=== PATIENT | male | born 1970 | race American Indian/Alaskan Native ===

== ENCOUNTER 2017-10-23 22:24 | Emergency (ER) | payer MEDICARE, MEDICAID ==
[2017-10-23 23:00] VITALS: BP 134/99
[2017-10-24] MEDS ORDERED: DIFLUCAN PO ONE (05:18)
[2017-10-24] MEDS ORDERED: MAGIC MOUTHWASH PO ONE (05:18)
--- NOTE | 2017-10-24 05:33 | Emergency Department Report ---
ED Rash HPI - HPI Chief Complaint: Skin Rash Stated Complaint: THRUSH Time Seen by Provider: 10/24/17 05:18 Duration: 5 Days Location: Other (throat ) Rash Symptoms: Yes Itching, Yes Blistering, No Facial Swelling, No Tongue/Oral Swelling, No Breathing Difficulties, No Choking Sensation, No Wheezing/Dyspnea, No Fever, No Lightheaded, No Malaise, No Myalgias Severity: moderate ED Review of Systems ROS: Stated complaint: THRUSH Other details as noted in HPI Constitutional: denies: chills, fever Eyes: denies: eye pain, eye discharge, vision change ENT: denies: ear pain, throat pain Respiratory: denies: cough, shortness of breath, wheezing Cardiovascular: denies: chest pain, palpitations Endocrine: no symptoms reported Gastrointestinal: denies: abdominal pain, nausea, diarrhea Genitourinary: denies: urgency, dysuria Musculoskeletal: denies: back pain, joint swelling, arthralgia Skin: denies: rash, lesions Neurological: as per HPI Psychiatric: denies: anxiety, depression Hematological/Lymphatic: denies: easy bleeding, easy bruising ED Past Medical Hx - Past Medical History Hx Seizures: Yes Additional medical history: Epilepsy - Social History Smoking Status: Current Every Day Smoker Substance Use Type: None, Marijuana - Medications Home Medications: Home Medications Medication Instructions Recorded Confirmed Last Taken Type Nystas/Diphen/Xyl Visc/Mylanta 15 ml MM Q4H 10 Days #450 ml 10/24/17 Unknown Rx [Magic Mouthwash] Rash Exam - Exam General: Vital signs noted. No distress. Alert and acting appropriately. HEENT: No Periorbital Edema, No Conjuctival Injection, No Chemosis, No Perioral Edema, No Tongue Edema, No Uvular Edema, No Compromised Airway, No Drooling Lungs: No Good Air Exchange, No Wheezes, No Ronchi, No Stridor, No Cough, No Labored Respirations, No Retractions, No Use of Accessory Muscles, No Other Abnormal Lung Sounds Heart: Yes Regular, No Murmur Skin: Yes Urticarial Rash, Yes Excoriations, Yes Tenderness, Yes Erythema, No Maculopapular Rash, No Morbilliform rash, No Bulla(e), No Weeping, No Edema, No Encrustations, No Other Other: Positive: Abdomen Normal, Neurologic Normal, Musculoskeletal Normal ED Course Vital Signs 10/23/17 22:37 Temperature 98.3 F Pulse Rate 71 Respiratory 16 Rate Blood Pressure 134/99 O2 Sat by Pulse 98 Oximetry ED Medical Decision Making - Medical Decision Making This RASH plan DC home with Magic mouthwash patient given Diflucan in ED patient will [facility] Critical care attestation.: If time is entered above; I have spent that time in minutes in the direct care of this critically ill patient, excluding procedure time. ED Disposition Clinical Impression: Oral thrush Disposition: DC-01 TO HOME OR SELFCARE Is pt being admited?: No Does the pt Need Aspirin: No Condition: Good Instructions: Oral Candidiasis (ED) Prescriptions: Nystas/Diphen/Xyl Visc/Mylanta [Magic Mouthwash] 15 ml MM Q4H 10 Days #450 ml Referrals: PRIMARY CARE, [Primary Care Provider] - 3-5 Days Forms: Work/School Release Form(ED) Time of Disposition: 05:50
[2017-10-24] MEDS ORDERED: BACTROBAN 2% TP ONE (06:01)
[2017-10-24] MEDS ORDERED: CEPACOL X STRENGTH MM PRN (06:01)
--- NOTE | 2017-10-24 06:03 | Emergency Department Report ---
ED Rash HPI - HPI Chief Complaint: Skin Rash Stated Complaint: THRUSH Time Seen by Provider: 10/24/17 05:18 Rash Symptoms: Yes Itching, No Facial Swelling, No Tongue/Oral Swelling, No Breathing Difficulties, No Choking Sensation, No Wheezing/Dyspnea, No Peeling, No Blistering, No Fever, No Lightheaded, No Malaise, No Myalgias Severity: moderate ED Review of Systems ROS: Stated complaint: THRUSH Other details as noted in HPI Constitutional: denies: chills, fever Eyes: denies: eye pain, eye discharge, vision change ENT: denies: ear pain, throat pain Respiratory: denies: cough, shortness of breath, wheezing Cardiovascular: denies: chest pain, palpitations Endocrine: no symptoms reported Gastrointestinal: denies: abdominal pain, nausea, diarrhea Genitourinary: denies: urgency, dysuria Musculoskeletal: denies: back pain, joint swelling, arthralgia Skin: denies: rash, lesions Neurological: as per HPI Psychiatric: denies: anxiety, depression Hematological/Lymphatic: denies: easy bleeding, easy bruising ED Past Medical Hx - Past Medical History Hx Seizures: Yes Additional medical history: Epilepsy - Social History Smoking Status: Current Every Day Smoker Substance Use Type: None, Marijuana - Medications Home Medications: Home Medications Medication Instructions Recorded Confirmed Last Taken Type Nystas/Diphen/Xyl Visc/Mylanta 15 ml MM Q4H 10 Days #450 ml 10/24/17 Unknown Rx [Magic Mouthwash] Rash Exam - Exam General: Vital signs noted. No distress. Alert and acting appropriately. ED Course Vital Signs 10/23/17 22:37 Temperature 98.3 F Pulse Rate 71 Respiratory 16 Rate Blood Pressure 134/99 O2 Sat by Pulse 98 Oximetry Critical care attestation.: If time is entered above; I have spent that time in minutes in the direct care of this critically ill patient, excluding procedure time. ED Disposition Clinical Impression: Oral thrush, Candidiasis of esophagus Disposition: -01 TO HOME OR SELFCARE Is pt being admited?: No Does the pt Need Aspirin: No Condition: Good Instructions: Oral Candidiasis (ED) Prescriptions: Nystas/Diphen/Xyl Visc/Mylanta [Magic Mouthwash] 15 ml MM Q4H 10 Days #450 ml Referrals: PRIMARY CARE, [Primary Care Provider] - 3-5 Days Forms: Work/School Release Form(ED) Time of Disposition: 06:05
== END 2017-10-24 06:45 | disposition home or self-care (01) ==
LOC: ED 22:24
DX: B37.0 Candidal stomatitis (principal); G40.909 Epilepsy, unspecified, not intractable, without status epilepticus; F17.200 Nicotine dependence, unspecified, uncomplicated; F12.10 Cannabis abuse, uncomplicated
CPT/HCPCS: 99282

== ENCOUNTER 2018-05-20 10:18 | Inpatient (IN) | payer MEDICARE ==
--- NOTE | 2018-05-20 11:22 | Emergency Department Report ---
ED General Adult HPI - General Chief complaint: Dyspnea/Respdistress Stated complaint: SOB/HIV Time Seen by Provider: 05/20/18 10:51 Source: patient, EMS Mode of arrival: Ambulatory Limitations: No Limitations - History of Present Illness Initial comments: Patient presents to emergency department with a chief complaint of cough, congestion and difficulty swallowing. The patient also has complained of significant weight loss. Patient states he was diagnosed with HIV 2 years ago has not been on any medications. Patient is concerned because he said was snipped him on a weight loss and notices white stuff in his mouth. Patient is chest pain, abdominal pain, headache. -: Gradual Severity scale (0 -10): 0 Improves with: none Worsens with: none Associated Symptoms: denies other symptoms Treatments Prior to Arrival: none - Related Data Home Medications Medication Instructions Recorded Confirmed Last Taken levETIRAcetam [Keppra] 500 mg PO BID 02/20/18 05/20/18 05/19/18 Allergies Allergy/AdvReac Type Severity Reaction Status Date / Time No Known Allergies Allergy Verified 10/24/17 05:20 ED Review of Systems ROS: Stated complaint: SOB/HIV Other details as noted in HPI Constitutional: denies: chills, fever Eyes: denies: eye pain, eye discharge, vision change ENT: denies: ear pain, throat pain Respiratory: cough. denies: shortness of breath, wheezing Cardiovascular: denies: chest pain, palpitations Endocrine: no symptoms reported Gastrointestinal: denies: abdominal pain, nausea, diarrhea Genitourinary: denies: urgency, dysuria Musculoskeletal: denies: back pain, joint swelling, arthralgia Skin: denies: rash, lesions Neurological: denies: headache, weakness, paresthesias Psychiatric: denies: anxiety, depression Hematological/Lymphatic: denies: easy bleeding, easy bruising ED Past Medical Hx - Past Medical History Previous Medical History?: Yes Hx Seizures: Yes Hx Psychiatric Treatment: Yes (bipolar) Hx HIV: Yes ("unsure") Additional medical history: Epilepsy - Surgical History Past Surgical History?: Yes Additional Surgical History: Right hand surgery - Social History Smoking Status: Never Smoker Substance Use Type: None - Medications Home Medications: Home Medications Medication Instructions Recorded Confirmed Last Taken Type levETIRAcetam [Keppra] 500 mg PO BID 02/20/18 05/20/18 05/19/18 History ED Physical Exam - General Limitations: No Limitations General appearance: alert, in no apparent distress, cachectic - Head Head exam: Present: atraumatic, normocephalic - Eye Eye exam: Present: normal appearance - ENT ENT exam: Present: other (oral thrush) - Neck Neck exam: Present: normal inspection - Respiratory Respiratory exam: Present: normal lung sounds bilaterally. Absent: respiratory distress, wheezes, rales, rhonchi - Cardiovascular Cardiovascular Exam: Present: regular rate, normal rhythm. Absent: systolic murmur, diastolic murmur, rubs, gallop - GI/Abdominal GI/Abdominal exam: Present: soft, normal bowel sounds. Absent: distended, tenderness - Rectal Rectal exam: Present: deferred - Extremities Exam Extremities exam: Present: normal inspection - Back Exam Back exam: Present: normal inspection - Neurological Exam Neurological exam: Present: alert, oriented X3, CN II-XII intact. Absent: motor sensory deficit - Psychiatric Psychiatric exam: Present: normal affect, normal mood - Skin Skin exam: Present: warm, dry, intact, normal color. Absent: rash ED Course Vital Signs 05/20/18 05/20/18 05/20/18 10:40 10:52 14:31 Temperature 98.3 F 99.2 F Pulse Rate 96 H 92 H Respiratory 18 16 16 Rate Blood Pressure 100/74 Blood Pressure 101/68 [Left] O2 Sat by Pulse 93 97 Oximetry ED Medical Decision Making - Lab Data Result diagrams: 05/20/18 11:54 05/20/18 11:54 Lab Results 05/20/18 05/20/18 05/20/18 Range/Units 11:54 11:54 13:18 WBC 2.3 L (4.5-11.0) K/mm3 RBC 4.49 (3.65-5.03) M/mm3 Hgb 12.4 (11.8-15.2) gm/dl Hct 37.0 (35.5-45.6) % MCV 83 L (84-94) fl MCH 28 (28-32) pg MCHC 33 (32-34) % RDW 16.6 H (13.2-15.2) % Plt Count 249 (140-440) K/mm3 [place] % (Auto) Time Stamp Assembler Eos % (Auto) Time Stamp Assembler Add Manual Diff Complete Total Counted 100 Seg Neutrophils % Time Stamp Assembler Seg Neuts % (Manual) 59.0 (40.0-70.0) % Band Neutrophils % 13.0 % Lymphocytes % (Manual) 8.0 L (13.4-35.0) % Reactive Lymphs % (Man) 0 % Monocytes % (Manual) 16.0 H (0.0-7.3) % Eosinophils % (Manual) 1.0 (0.0-4.3) % Basophils % (Manual) 0 (0.0-1.8) % Metamyelocytes % 2.0 % Myelocytes % 1.0 % Promyelocytes % 0 % Blast Cells % 0 % Nucleated RBC % Not Reportable Seg Neutrophils # Time Stamp Assembler Seg Neutrophils # Man 1.4 L (1.8-7.7) K/mm3 Band Neutrophils # 0.3 K/mm3 Lymphocytes # (Manual) 0.2 L (1.2-5.4) K/mm3 Abs React Lymphs (Man) 0.0 K/mm3 Monocytes # (Manual) 0.4 (0.0-0.8) K/mm3 Eosinophils # (Manual) 0.0 (0.0-0.4) K/mm3 Basophils # (Manual) 0.0 (0.0-0.1) K/mm3 Metamyelocytes # 0.0 K/mm3 Myelocytes # 0.0 K/mm3 Promyelocytes # 0.0 K/mm3 Blast Cells # 0.0 K/mm3 WBC Morphology Not Reportable Hypersegmented Neuts Not Reportable Hyposegmented Neuts Not Reportable Hypogranular Neuts Not Reportable Smudge Cells Not Reportable Toxic Granulation Not Reportable Toxic Vacuolation Not Reportable Dohle Bodies Not Reportable Pelger-Huet Anomaly Not Reportable Arabella Rods Not Reportable Platelet Estimate Consistent w auto Clumped Platelets Not Reportable Plt Clumps, EDTA Not Reportable Large Platelets Not Reportable Giant Platelets Not Reportable Platelet Satelliting Not Reportable Plt Morphology Comment Not Reportable RBC Morphology Normal Dimorphic RBCs Not Reportable Polychromasia Not Reportable Hypochromasia Not Reportable Poikilocytosis Not Reportable Anisocytosis Not Reportable Microcytosis Not Reportable Macrocytosis Not Reportable Spherocytes Not Reportable Pappenheimer Bodies Not Reportable Sickle Cells Not Reportable Target Cells Not Reportable Tear Drop Cells Not Reportable Ovalocytes Not Reportable Helmet Cells Not Reportable [place]enevers Bodies Not Reportable [place] Rings Not Reportable Obed Cells Not Reportable Bite Cells Not Reportable Crenated Cell Not Reportable Elliptocytes Not Reportable Acanthocytes (Spur) Not Reportable Rouleaux Not Reportable Hemoglobin C Crystals Not Reportable Schistocytes Not Reportable Malaria parasites Not Reportable Yuriy Bodies Not Reportable Hem Pathologist Commnt No APTT (24.2-36.6) Sec. Sodium 133 L (137-145) mmol/L Potassium 4.9 (3.6-5.0) mmol/L Chloride 96.2 L (98-107) mmol/L Carbon Dioxide 23 (22-30) mmol/L Anion Gap 19 mmol/L BUN 14 (9-20) mg/dL Creatinine 0.7 L (0.8-1.5) mg/dL Estimated GFR > 60 ml/min BUN/Creatinine Ratio 20 % Glucose 88 (75-100) mg/dL Lactic Acid 1.60 (0.7-2.0) mmol/L Calcium 9.2 (8.4-10.2) mg/dL Magnesium 2.40 H (1.7-2.3) mg/dL Total Bilirubin 0.40 (0.1-1.2) mg/dL AST 48 H (5-40) units/L ALT 47 (7-56) units/L Alkaline Phosphatase 231 H (35-129) units/L Total Protein 7.7 (6.3-8.2) g/dL Albumin 3.2 L (3.9-5) g/dL Albumin/Globulin Ratio 0.7 % Urine Color (Yellow) Urine Turbidity (Clear) Urine pH (5.0-7.0) Ur Specific [place] (1.003-1.030) Urine Protein (Negative) mg/dL Urine Glucose (UA) (Negative) mg/dL Urine Ketones (Negative) mg/dL Urine Blood (Negative) Urine Nitrite (Negative) Urine Bilirubin (Negative) Urine Urobilinogen (<2.0) mg/dL Ur Leukocyte Esterase (Negative) Urine WBC (Auto) (0.0-6.0) /HPF Urine RBC (Auto) (0.0-6.0) /HPF Urine Mucus /HPF 05/20/18 05/20/18 Range/Units 13:18 Unknown WBC (4.5-11.0) K/mm3 RBC (3.65-5.03) M/mm3 Hgb (11.8-15.2) gm/dl Hct (35.5-45.6) % MCV (84-94) fl MCH (28-32) pg MCHC (32-34) % RDW (13.2-15.2) % Plt Count (140-440) K/mm3 [place] % (Auto) Eos % (Auto) Add Manual Diff Total Counted Seg Neutrophils % Seg Neuts % (Manual) (40.0-70.0) % Band Neutrophils % % Lymphocytes % (Manual) (13.4-35.0) % Reactive Lymphs % (Man) % Monocytes % (Manual) (0.0-7.3) % Eosinophils % (Manual) (0.0-4.3) % Basophils % (Manual) (0.0-1.8) % Metamyelocytes % % Myelocytes % % Promyelocytes % % Blast Cells % % Nucleated RBC % Seg Neutrophils # Seg Neutrophils # Man (1.8-7.7) K/mm3 Band Neutrophils # K/mm3 Lymphocytes # (Manual) (1.2-5.4) K/mm3 Abs React Lymphs (Man) K/mm3 Monocytes # (Manual) (0.0-0.8) K/mm3 Eosinophils # (Manual) (0.0-0.4) K/mm3 Basophils # (Manual) (0.0-0.1) K/mm3 Metamyelocytes # K/mm3 Myelocytes # K/mm3 Promyelocytes # K/mm3 Blast Cells # K/mm3 WBC Morphology Hypersegmented Neuts Hyposegmented Neuts Hypogranular Neuts Smudge Cells Toxic Granulation Toxic Vacuolation Dohle Bodies Pelger-Huet Anomaly Arabella Rods Platelet Estimate Clumped Platelets Plt Clumps, EDTA Large Platelets Giant Platelets Platelet Satelliting Plt Morphology Comment RBC Morphology Dimorphic RBCs Polychromasia Hypochromasia Poikilocytosis Anisocytosis Microcytosis Macrocytosis Spherocytes Pappenheimer Bodies Sickle Cells Target Cells Tear Drop Cells Ovalocytes Helmet Cells Mendiola-Greenevers Bodies [place]id[place] Rings Obed Cells Bite Cells Crenated Cell Elliptocytes Acanthocytes (Spur) Rouleaux Hemoglobin C Crystals Schistocytes Malaria parasites Yuriy Bodies Hem Pathologist Commnt APTT 29.4 (24.2-36.6) Sec. Sodium (137-145) mmol/L Potassium (3.6-5.0) mmol/L Chloride (98-107) mmol/L Carbon Dioxide (22-30) mmol/L Anion Gap mmol/L BUN (9-20) mg/dL Creatinine (0.8-1.5) mg/dL Estimated GFR ml/min BUN/Creatinine Ratio % Glucose (75-100) mg/dL Lactic Acid (0.7-2.0) mmol/L Calcium (8.4-10.2) mg/dL Magnesium (1.7-2.3) mg/dL Total Bilirubin (0.1-1.2) mg/dL AST (5-40) units/L ALT (7-56) units/L Alkaline Phosphatase (35-129) units/L Total Protein (6.3-8.2) g/dL Albumin (3.9-5) g/dL Albumin/Globulin Ratio % Urine Color Yellow (Yellow) Urine Turbidity Clear (Clear) Urine pH 6.0 (5.0-7.0) Ur Specific [place] 1.027 (1.003-1.030) Urine Protein 30 mg/dl (Negative) mg/dL Urine Glucose (UA) Neg (Negative) mg/dL Urine Ketones Neg (Negative) mg/dL Urine Blood Neg (Negative) Urine Nitrite Neg (Negative) Urine Bilirubin Neg (Negative) Urine Urobilinogen < 2.0 (<2.0) mg/dL Ur Leukocyte Esterase Neg (Negative) Urine WBC (Auto) 1.0 (0.0-6.0) /HPF Urine RBC (Auto) 3.0 (0.0-6.0) /HPF Urine Mucus Few /HPF - Radiology Data Radiology results: report reviewed Critical care attestation.: If time is entered above; I have spent that time in minutes in the direct care of this critically ill patient, excluding procedure time. ED Disposition Clinical Impression: Oral thrush, Pneumonia Disposition: OP ADMIT IP TO THIS HOSP Is pt being admited?: Yes Does the pt Need Aspirin: No Condition: Fair Instructions: Bacterial Pneumonia (ED) Referrals: PRIMARY CARE, [Primary Care Provider] - 3-5 Days
--- NOTE | 2018-05-20 12:04 | XRay Report ---
ROUTINE CHEST, TWO VIEWS: HISTORY: Cough. Subtle peribronchial opacity is identified throughout the left lung concerning for an early left lung infiltrate. This is new since 02/20/18. No pleural effusion or pneumothorax. Heart and mediastinal structures are unremarkable. IMPRESSION: Early left lung pneumonia.
[2018-05-20 12:47] LABS: Hemoglobin 12.4 gm/dl (11.8-15.2); Mean Corpuscular HGB Conc 33 % (32-34); Mean Corpuscular Volume 83 fl (84-94); Platelet Count 249 K/mm3 (140-440); Red Blood Count 4.49 M/mm3 (3.65-5.03); Red Cell Distribution Width 16.6 % (13.2-15.2)
[2018-05-20 12:53] LABS: Bilirubin,Urine NEG (Negative); Blood,Urine NEG (Negative); Color,Urine Yellow (Yellow); Mucus,Urine FEW /HPF; Urobilinogen,Urine < 2.0 mg/dL (<2.0)
[2018-05-20 13:00] LABS: Alanine Aminotransferase 47 units/L (7-56); Albumin 3.2 g/dL (3.9-5); BUN/Creatinine Ratio 20; Blood Urea Nitrogen 14 mg/dL (9-20); Calcium 9.2 mg/dL (8.4-10.2); Hemolysis Index 26
[2018-05-20] MEDS ORDERED: NACL 0.9% 1000 ML IV ONE (13:11)
[2018-05-20] MEDS: ROCEPHIN/NS 2 GM/100 ML 2 GM/100 ML BAG IV SCH (13:56)
[2018-05-20 14:26] LABS: Band Neutrophils # (Manual) 0.3 K/mm3; Basophils % (Manual) 0 % (0.0-1.8); Platelet Estimate Consistent w Auto; RBC Morphology Normal; Total Cells Counted 100
[2018-05-20] MEDS: ZITHROMAX 500 MG in NACL 0.9% 250ML 250 ML IV SCH (14:31)
--- NOTE | 2018-05-20 18:29 | History and Physical Report ---
History of Present Illness Date of examination: 05/20/18 Medications and Allergies Allergies Allergy/AdvReac Type Severity Reaction Status Date / Time No Known Allergies Allergy Verified 10/24/17 05:20 Home Medications Medication Instructions Recorded Confirmed Last Taken Type levETIRAcetam [Keppra] 500 mg PO BID 02/20/18 05/20/18 05/19/18 History Active Meds: Active Medications Azithromycin 500 mg/ Sodium (Chloride) 250 mls @ 250 mls/hr IV Q24HR BEATRICE; Protocol Last Admin: 05/20/18 14:31 Dose: 250 mls/hr Documented by: Ceftriaxone Sodium (Rocephin/Ns 2 Gm/100 Ml) 2 gm in 100 mls @ 200 mls/hr IV Q24HR BEATRICE; Protocol Last Admin: 05/20/18 13:56 Dose: 200 mls/hr Documented by: Exam - Constitutional Vitals: Temp Pulse Resp BP Pulse Ox 99.1 F 99 H 15 102/70 97 05/20/18 17:52 05/20/18 17:52 05/20/18 17:52 05/20/18 17:52 05/20/18 17:52 Results - Labs CBC & Chem 7: 05/20/18 11:54 05/20/18 11:54 Labs: Laboratory Last Values WBC 2.3 K/mm3 (4.5-11.0) L 05/20/18 11:54 RBC 4.49 M/mm3 (3.65-5.03) 05/20/18 11:54 Hgb 12.4 gm/dl (11.8-15.2) 05/20/18 11:54 Hct 37.0 % (35.5-45.6) 05/20/18 11:54 MCV 83 fl (84-94) L 05/20/18 11:54 MCH 28 pg (28-32) 05/20/18 11:54 MCHC 33 % (32-34) 05/20/18 11:54 RDW 16.6 % (13.2-15.2) H 05/20/18 11:54 Plt Count 249 K/mm3 (140-440) 05/20/18 11:54 [place] % (Auto) Casino Cage Supervisor 05/20/18 11:54 Eos % (Auto) Casino Cage Supervisor 05/20/18 11:54 Add Manual Diff Complete 05/20/18 11:54 Total Counted 100 05/20/18 11:54 Seg Neutrophils % Casino Cage Supervisor 05/20/18 11:54 Seg Neuts % (Manual) 59.0 % (40.0-70.0) 05/20/18 11:54 Band Neutrophils % 13.0 % 05/20/18 11:54 Lymphocytes % (Manual) 8.0 % (13.4-35.0) L 05/20/18 11:54 Reactive Lymphs % (Man) 0 % 05/20/18 11:54 Monocytes % (Manual) 16.0 % (0.0-7.3) H 05/20/18 11:54 Eosinophils % (Manual) 1.0 % (0.0-4.3) 05/20/18 11:54 Basophils % (Manual) 0 % (0.0-1.8) 05/20/18 11:54 Metamyelocytes % 2.0 % 05/20/18 11:54 Myelocytes % 1.0 % 05/20/18 11:54 Promyelocytes % 0 % 05/20/18 11:54 Blast Cells % 0 % 05/20/18 11:54 Nucleated RBC % Not Reportable 05/20/18 11:54 Seg Neutrophils # Casino Cage Supervisor 05/20/18 11:54 Seg Neutrophils # Man 1.4 K/mm3 (1.8-7.7) L 05/20/18 11:54 Band Neutrophils # 0.3 K/mm3 05/20/18 11:54 Lymphocytes # (Manual) 0.2 K/mm3 (1.2-5.4) L 05/20/18 11:54 Abs React Lymphs (Man) 0.0 K/mm3 05/20/18 11:54 Monocytes # (Manual) 0.4 K/mm3 (0.0-0.8) 05/20/18 11:54 Eosinophils # (Manual) 0.0 K/mm3 (0.0-0.4) 05/20/18 11:54 Basophils # (Manual) 0.0 K/mm3 (0.0-0.1) 05/20/18 11:54 Metamyelocytes # 0.0 K/mm3 05/20/18 11:54 Myelocytes # 0.0 K/mm3 05/20/18 11:54 Promyelocytes # 0.0 K/mm3 05/20/18 11:54 Blast Cells # 0.0 K/mm3 05/20/18 11:54 WBC Morphology Not Reportable 05/20/18 11:54 Hypersegmented Neuts Not Reportable 05/20/18 11:54 Hyposegmented Neuts Not Reportable 05/20/18 11:54 Hypogranular Neuts Not Reportable 05/20/18 11:54 Smudge Cells Not Reportable 05/20/18 11:54 Toxic Granulation Not Reportable 05/20/18 11:54 Toxic Vacuolation Not Reportable 05/20/18 11:54 Dohle Bodies Not Reportable 05/20/18 11:54 Pelger-Huet Anomaly Not Reportable 05/20/18 11:54 Arabella Rods Not Reportable 05/20/18 11:54 Platelet Estimate Consistent w auto 05/20/18 11:54 Clumped Platelets Not Reportable 05/20/18 11:54 Plt Clumps, EDTA Not Reportable 05/20/18 11:54 Large Platelets Not Reportable 05/20/18 11:54 Giant Platelets Not Reportable 05/20/18 11:54 Platelet Satelliting Not Reportable 05/20/18 11:54 Plt Morphology Comment Not Reportable 05/20/18 11:54 RBC Morphology Normal 05/20/18 11:54 Dimorphic RBCs Not Reportable 05/20/18 11:54 Polychromasia Not Reportable 05/20/18 11:54 Hypochromasia Not Reportable 05/20/18 11:54 Poikilocytosis Not Reportable 05/20/18 11:54 Anisocytosis Not Reportable 05/20/18 11:54 Microcytosis Not Reportable 05/20/18 11:54 Macrocytosis Not Reportable 05/20/18 11:54 Spherocytes Not Reportable 05/20/18 11:54 Pappenheimer Bodies Not Reportable 05/20/18 11:54 Sickle Cells Not Reportable 05/20/18 11:54 Target Cells Not Reportable 05/20/18 11:54 Tear Drop Cells Not Reportable 05/20/18 11:54 Ovalocytes Not Reportable 05/20/18 11:54 Helmet Cells Not Reportable 05/20/18 11:54 [place] Bodies Not Reportable 05/20/18 11:54 [place] Rings Not Reportable 05/20/18 11:54 [place] Cells Not Reportable 05/20/18 11:54 Bite Cells Not Reportable 05/20/18 11:54 Crenated Cell Not Reportable 05/20/18 11:54 Elliptocytes Not Reportable 05/20/18 11:54 Acanthocytes (Spur) Not Reportable 05/20/18 11:54 Rouleaux Not Reportable 05/20/18 11:54 Hemoglobin C Crystals Not Reportable 05/20/18 11:54 Schistocytes Not Reportable 05/20/18 11:54 Malaria parasites Not Reportable 05/20/18 11:54 Yuriy Bodies Not Reportable 05/20/18 11:54 Hem Pathologist Commnt No 05/20/18 11:54 APTT 29.4 Sec. (24.2-36.6) 05/20/18 13:18 Sodium 133 mmol/L (137-145) L 05/20/18 11:54 Potassium 4.9 mmol/L (3.6-5.0) 05/20/18 11:54 Chloride 96.2 mmol/L (98-107) L 05/20/18 11:54 Carbon Dioxide 23 mmol/L (22-30) 05/20/18 11:54 Anion Gap 19 mmol/L 05/20/18 11:54 BUN 14 mg/dL (9-20) 05/20/18 11:54 Creatinine 0.7 mg/dL (0.8-1.5) L 05/20/18 11:54 Estimated GFR > 60 ml/min 05/20/18 11:54 BUN/Creatinine Ratio 20 % 05/20/18 11:54 Glucose 88 mg/dL (75-100) 05/20/18 11:54 Lactic Acid 1.10 mmol/L (0.7-2.0) 05/20/18 16:00 Calcium 9.2 mg/dL (8.4-10.2) 05/20/18 11:54 Magnesium 2.40 mg/dL (1.7-2.3) H 05/20/18 11:54 Total Bilirubin 0.40 mg/dL (0.1-1.2) 05/20/18 11:54 AST 48 units/L (5-40) H 05/20/18 11:54 ALT 47 units/L (7-56) 05/20/18 11:54 Alkaline Phosphatase 231 units/L (35-129) H 05/20/18 11:54 Lactate Dehydrogenase 549 units/L (91-180) H 05/20/18 11:25 Total Protein 7.7 g/dL (6.3-8.2) 05/20/18 11:54 Albumin 3.2 g/dL (3.9-5) L 05/20/18 11:54 Albumin/Globulin Ratio 0.7 % 05/20/18 11:54 Urine Color Yellow (Yellow) 05/20/18 Unknown Urine Turbidity Clear (Clear) 05/20/18 Unknown Urine pH 6.0 (5.0-7.0) 05/20/18 Unknown Ur Specific [place] 1.027 (1.003-1.030) 05/20/18 Unknown Urine Protein 30 mg/dl mg/dL (Negative) 05/20/18 Unknown Urine Glucose (UA) Neg mg/dL (Negative) 05/20/18 Unknown Urine Ketones Neg mg/dL (Negative) 05/20/18 Unknown Urine Blood Neg (Negative) 05/20/18 Unknown Urine Nitrite Neg (Negative) 05/20/18 Unknown Urine Bilirubin Neg (Negative) 05/20/18 Unknown Urine Urobilinogen < 2.0 mg/dL (<2.0) 05/20/18 Unknown Ur Leukocyte Esterase Neg (Negative) 05/20/18 Unknown Urine WBC (Auto) 1.0 /HPF (0.0-6.0) 05/20/18 Unknown Urine RBC (Auto) 3.0 /HPF (0.0-6.0) 05/20/18 Unknown Urine Mucus Few /HPF 05/20/18 Unknown
[2018-05-20] MEDS ORDERED: TYLENOL PO PRN (18:30)
[2018-05-20] MEDS ORDERED: ZOFRAN IV PRN (18:30)
[2018-05-20] MEDS ORDERED: DILAUDID IV PRN (18:31)
[2018-05-20] MEDS ORDERED: AMBIEN PO PRN (18:31)
[2018-05-20] MEDS ORDERED: PERCOCET 5/325 PO PRN (18:31)
[2018-05-20] MEDS ORDERED: DIFLUCAN 200 ML IV SCH (19:00)
[2018-05-20] MEDS ORDERED: NACL 0.9% 1000 ML 1,000 ML IV SCH (19:00)
[2018-05-20] MEDS ORDERED: ROCEPHIN/NS 2 GM/100 ML 2 GM/100 ML BAG IV SCH (19:00)
[2018-05-20] MEDS: SODIUM CHLORIDE FLUSH SYRINGE 10 ML IV SCH (23:06)
--- NOTE | 2018-05-21 06:21 | Event Note ---
Date: 05/20/18 See dictated H/p in reports Pneumonia--CAP versus PCP HIV Oral candidiasis
[2018-05-21 06:48] LABS: Hematocrit 29.8 % (35.5-45.6); Mean Corpuscular HGB Conc 34 % (32-34); Mean Corpuscular Volume 83 fl (84-94); Platelet Count 272 K/mm3 (140-440); Red Blood Count 3.58 M/mm3 (3.65-5.03); Red Cell Distribution Width 16.5 % (13.2-15.2)
[2018-05-21 06:50] LABS: Alanine Aminotransferase 28 units/L (7-56); Albumin 2.9 g/dL (3.9-5); BUN/Creatinine Ratio 17; Blood Urea Nitrogen 10 mg/dL (9-20); Calcium 8.3 mg/dL (8.4-10.2); Hemolysis Index 2
--- NOTE | 2018-05-21 06:56 | History and Physical Report ---
CHIEF COMPLAINT: Cough, congestion, and difficulty swallowing for 3 to 4 days. HISTORY OF PRESENT ILLNESS: A 48-year-old -[place] male with a history of HIV, comes in for significant weight loss. Also, cough, congestion and difficulty swallowing. The patient was diagnosed with HIV 2 years ago, but not taking any antiretrovirals. Cough, nonproductive. Low-grade fever present. No chest pain. Shortness of breath on minimal exertion present. No exacerbating or relieving factors. Swallowing food is difficult because of white rash on his tongue. PAST MEDICAL HISTORY: As mentioned, HIV, seizure disorder, bipolar disorder. CURRENT MEDICATIONS: Keppra 500 mg twice a day. PAST SURGICAL HISTORY: Right hand surgery. SOCIAL HISTORY: He does not smoke. FAMILY HISTORY: Hypertension. CURRENT MEDICATIONS: Keppra 500 twice a day. REVIEW OF SYSTEMS: Significant for easy fatigability cough and difficulty swallowing. White thrush on his tongue. Also, losing weight. Otherwise, 14-point review of systems negative. PHYSICAL EXAMINATION: GENERAL: On examination, a middle-aged male, cooperative during examination. VITAL SIGNS: Blood pressure is 102/70, temperature is 99.2, pulse is 92, and respirations are 16. HEENT: Unremarkable. Pupils are equal and reactive. Oral thrush present. Severe. NECK: Supple, no lymphadenopathy, no thyromegaly. LUNGS: Clear to auscultation and percussion. Good air entry. CARDIOVASCULAR: S1, S2 heard. No gallop, no murmur, no rub. Apical impulse in left fifth intercostal space and midclavicular line. CHEST: Scattered rhonchi. Good air entry. ABDOMEN: Soft and benign. No hepatosplenomegaly. No guarding, no rigidity. Hernial orifices are normal. EXTREMITIES: Good pedal pulses. No pedal edema. CENTRAL NERVOUS SYSTEM: Alert and oriented x 4, nonfocal exam. SKIN: Normal. IMAGING STUDIES AND LABORATORY DATA: Chest x-ray shows early left lung pneumonia. No diffuse infiltrates. White count is 2300, H and H are 12.4 and 37.0, and platelet count is 249,000. Sodium is 133, potassium is 4.9, chloride is 96.2, bicarbonate is 23, BUN and creatinine are 14 and 0.7, magnesium is 2.4, AST is 48, alkaline phosphatase is 231. Lactate dehydrogenase is 549. Albumin is 3.2. Urine is normal. ASSESSMENT AND PLAN: 1. Left lower lobe pneumonia. We will treat it as community-acquired pneumonia. Suspicion for PCP remains, high lactate dehydrogenase. ID consult was requested to help with the management. The patient is now on ceftriaxone and Zithromax. 2. Oral candidiasis. The patient is started on IV Diflucan 400 mg q.24 hours. 3. HIV. We will defer to ID regarding labs and management of HIV. 4. Malnutrition. Dietitian consult requested. 5. Transaminitis, mild. We will get a hepatitis profile. 6. Hyponatremia, mild. IV fluids for now. 7. Deep venous thrombosis prophylaxis, Lovenox 40 mg subcutaneous daily. JOB# [id number] FERNANDO/STEPH HODGES
[2018-05-21 09:36] LABS: Anisocytosis 1+; Basophils % (Manual) 0 % (0.0-1.8); Dohle Bodies Few; Ovalocytes Few; Poikilocytosis 1+; Total Cells Counted 100
[2018-05-21 09:37] LABS: Platelet Estimate Consistent w Auto
[2018-05-21] MEDS: ROCEPHIN/NS 2 GM/100 ML 2 GM/100 ML BAG IV SCH (10:30)
[2018-05-21] MEDS: LOVENOX SUB-Q SCH ×2 (10:36→10:39)
[2018-05-21] MEDS: SODIUM CHLORIDE FLUSH SYRINGE 10 ML IV SCH (10:36)
[2018-05-21] MEDS: ZITHROMAX 500 MG in NACL 0.9% 250ML 250 ML IV SCH (11:00)
--- NOTE | 2018-05-21 11:13 | Progress Note ---
Assessment and Plan Assessment and plan: Community acquired pneumonia. Continue IV antibiotics and follow serial chest x-ray. HIV. ID consultation pending. Oral candidiasis. Continue Diflucan. History Interval history: No new issues overnight. Hospitalist Physical - Constitutional Vitals: Temp Pulse Resp BP Pulse Ox 98.6 F 84 18 99/67 95 05/21/18 05:54 05/21/18 05:54 05/21/18 05:54 05/21/18 05:54 05/21/18 05:54 General appearance: Present: no acute distress, well-nourished - EENT Eyes: Present: PERRL, EOM intact ENT: hearing intact, clear oral mucosa, dentition normal - Neck Neck: Present: supple, normal ROM - Respiratory Respiratory effort: normal Respiratory: bilateral: CTA - Cardiovascular Rhythm: regular Heart Sounds: Present: S1 & S2. Absent: gallop, rub - Extremities Extremities: no ischemia, No edema, Full ROM - Abdominal General gastrointestinal: soft, non-tender, non-distended, normal bowel sounds - Integumentary Integumentary: Present: clear, warm, dry - Neurologic Neurologic: CNII-XII intact, moves all extremities Results - Labs CBC & Chem 7: 05/21/18 05:32 05/21/18 05:32 Labs: Laboratory Last Values WBC 2.0 K/mm3 (4.5-11.0) L 05/21/18 05:32 RBC 3.58 M/mm3 (3.65-5.03) L 05/21/18 05:32 Hgb 10.0 gm/dl (11.8-15.2) L 05/21/18 05:32 Hct 29.8 % (35.5-45.6) L D 05/21/18 05:32 MCV 83 fl (84-94) L 05/21/18 05:32 MCH 28 pg (28-32) 05/21/18 05:32 MCHC 34 % (32-34) 05/21/18 05:32 RDW 16.5 % (13.2-15.2) H 05/21/18 05:32 Plt Count 272 K/mm3 (140-440) 05/21/18 05:32 [place] % (Auto) Domestic Housekeeper 05/20/18 11:54 Eos % (Auto) Domestic Housekeeper 05/20/18 11:54 Add Manual Diff Complete 05/21/18 05:32 Total Counted 100 05/21/18 05:32 Seg Neutrophils % Domestic Housekeeper 05/20/18 11:54 Seg Neuts % (Manual) 60.0 % (40.0-70.0) 05/21/18 05:32 Band Neutrophils % 1.0 % 05/21/18 05:32 Lymphocytes % (Manual) 17.0 % (13.4-35.0) 05/21/18 05:32 Reactive Lymphs % (Man) 0 % 05/21/18 05:32 Monocytes % (Manual) 14.0 % (0.0-7.3) H 05/21/18 05:32 Eosinophils % (Manual) 8.0 % (0.0-4.3) H 05/21/18 05:32 Basophils % (Manual) 0 % (0.0-1.8) 05/21/18 05:32 Metamyelocytes % 0 % 05/21/18 05:32 Myelocytes % 0 % 05/21/18 05:32 Promyelocytes % 0 % 05/21/18 05:32 Blast Cells % 0 % 05/21/18 05:32 Nucleated RBC % Not Reportable 05/21/18 05:32 Seg Neutrophils # Domestic Housekeeper 05/20/18 11:54 Seg Neutrophils # Man 1.2 K/mm3 (1.8-7.7) L 05/21/18 05:32 Band Neutrophils # 0.0 K/mm3 05/21/18 05:32 Lymphocytes # (Manual) 0.3 K/mm3 (1.2-5.4) L 05/21/18 05:32 Abs React Lymphs (Man) 0.0 K/mm3 05/21/18 05:32 Monocytes # (Manual) 0.3 K/mm3 (0.0-0.8) 05/21/18 05:32 Eosinophils # (Manual) 0.2 K/mm3 (0.0-0.4) 05/21/18 05:32 Basophils # (Manual) 0.0 K/mm3 (0.0-0.1) 05/21/18 05:32 Metamyelocytes # 0.0 K/mm3 05/21/18 05:32 Myelocytes # 0.0 K/mm3 05/21/18 05:32 Promyelocytes # 0.0 K/mm3 05/21/18 05:32 Blast Cells # 0.0 K/mm3 05/21/18 05:32 WBC Morphology Not Reportable 05/21/18 05:32 Hypersegmented Neuts Not Reportable 05/21/18 05:32 Hyposegmented Neuts Not Reportable 05/21/18 05:32 Hypogranular Neuts Not Reportable 05/21/18 05:32 Smudge Cells Not Reportable 05/21/18 05:32 Toxic Granulation Not Reportable 05/21/18 05:32 Toxic Vacuolation Not Reportable 05/21/18 05:32 Dohle Bodies Few 05/21/18 05:32 Pelger-Huet Anomaly Not Reportable 05/21/18 05:32 Arabella Rods Not Reportable 05/21/18 05:32 Platelet Estimate Consistent w auto 05/21/18 05:32 Clumped Platelets Not Reportable 05/21/18 05:32 Plt Clumps, EDTA Not Reportable 05/21/18 05:32 Large Platelets Not Reportable 05/21/18 05:32 Giant Platelets Not Reportable 05/21/18 05:32 Platelet Satelliting Not Reportable 05/21/18 05:32 Plt Morphology Comment Not Reportable 05/21/18 05:32 RBC Morphology Not Reportable 05/21/18 05:32 Dimorphic RBCs Not Reportable 05/21/18 05:32 Polychromasia Not Reportable 05/21/18 05:32 Hypochromasia Not Reportable 05/21/18 05:32 Poikilocytosis 1+ 05/21/18 05:32 Anisocytosis 1+ 05/21/18 05:32 Microcytosis Not Reportable 05/21/18 05:32 Macrocytosis Not Reportable 05/21/18 05:32 Spherocytes Not Reportable 05/21/18 05:32 Pappenheimer Bodies Not Reportable 05/21/18 05:32 Sickle Cells Not Reportable 05/21/18 05:32 Target Cells Not Reportable 05/21/18 05:32 Tear Drop Cells Not Reportable 05/21/18 05:32 Ovalocytes Few 05/21/18 05:32 Helmet Cells Not Reportable 05/21/18 05:32 Mendiola-Krum Bodies Not Reportable 05/21/18 05:32 Hydes Rings Not Reportable 05/21/18 05:32 Obed Cells Not Reportable 05/21/18 05:32 Bite Cells Not Reportable 05/21/18 05:32 Crenated Cell Not Reportable 05/21/18 05:32 Elliptocytes Not Reportable 05/21/18 05:32 Acanthocytes (Spur) Not Reportable 05/21/18 05:32 Rouleaux Not Reportable 05/21/18 05:32 Hemoglobin C Crystals Not Reportable 05/21/18 05:32 Schistocytes Not Reportable 05/21/18 05:32 Malaria parasites Not Reportable 05/21/18 05:32 Yuriy Bodies Not Reportable 05/21/18 05:32 Hem Pathologist Commnt No 05/21/18 05:32 APTT 29.4 Sec. (24.2-36.6) 05/20/18 13:18 Sodium 142 mmol/L (137-145) D 05/21/18 05:32 Potassium 4.2 mmol/L (3.6-5.0) 05/21/18 05:32 Chloride 105.1 mmol/L (98-107) 05/21/18 05:32 Carbon Dioxide 28 mmol/L (22-30) 05/21/18 05:32 Anion Gap 13 mmol/L 05/21/18 05:32 BUN 10 mg/dL (9-20) 05/21/18 05:32 Creatinine 0.6 mg/dL (0.8-1.5) L 05/21/18 05:32 Estimated GFR > 60 ml/min 05/21/18 05:32 BUN/Creatinine Ratio 17 % 05/21/18 05:32 Glucose 88 mg/dL (75-100) 05/21/18 05:32 Hemoglobin A1c 5.8 % (4-6) 05/20/18 18:56 Lactic Acid 1.10 mmol/L (0.7-2.0) 05/20/18 16:00 Calcium 8.3 mg/dL (8.4-10.2) L 05/21/18 05:32 Magnesium 2.40 mg/dL (1.7-2.3) H 05/20/18 11:54 Total Bilirubin 0.20 mg/dL (0.1-1.2) 05/21/18 05:32 AST 28 units/L (5-40) 05/21/18 05:32 ALT 28 units/L (7-56) 05/21/18 05:32 Alkaline Phosphatase 179 units/L (35-129) H 05/21/18 05:32 Lactate Dehydrogenase 549 units/L (91-180) H 05/20/18 11:25 Total Protein 6.0 g/dL (6.3-8.2) L D 05/21/18 05:32 Albumin 2.9 g/dL (3.9-5) L 05/21/18 05:32 Albumin/Globulin Ratio 0.9 % 05/21/18 05:32 Urine Color Yellow (Yellow) 05/20/18 Unknown Urine Turbidity Clear (Clear) 05/20/18 Unknown Urine pH 6.0 (5.0-7.0) 05/20/18 Unknown Ur Specific [place] 1.027 (1.003-1.030) 05/20/18 Unknown Urine Protein 30 mg/dl mg/dL (Negative) 05/20/18 Unknown Urine Glucose (UA) Neg mg/dL (Negative) 05/20/18 Unknown Urine Ketones Neg mg/dL (Negative) 05/20/18 Unknown Urine Blood Neg (Negative) 05/20/18 Unknown Urine Nitrite Neg (Negative) 05/20/18 Unknown Urine Bilirubin Neg (Negative) 05/20/18 Unknown Urine Urobilinogen < 2.0 mg/dL (<2.0) 05/20/18 Unknown Ur Leukocyte Esterase Neg (Negative) 05/20/18 Unknown Urine WBC (Auto) 1.0 /HPF (0.0-6.0) 05/20/18 Unknown Urine RBC (Auto) 3.0 /HPF (0.0-6.0) 05/20/18 Unknown Urine Mucus Few /HPF 05/20/18 Unknown
[2018-05-21 11:29] LABS: Hepatitis B Surface Antigen Non-Reactive (Negative)
[2018-05-21 12:25] LABS: Hepatitis C Virus Antibody Non-Reactive (NonReactive)
--- NOTE | 2018-05-21 13:42 | Consultation ---
History of Present Illness - Reason for Consult Consult date: 05/21/18 HIV ?PJP Requesting physician: CAROL CM - History of Present Illness 48 y/o male with history of cocaine abuse, Gonorrhea and HIV diagnosed in 2018, [facility] but never went back because he did not like the way he was treated; admitted on 05/20/2018 due to 3-week history of cough with yellowish sputum, SOB, AVILA, nasal congestion and difficulty swallowing. Also re ports multiple lips bumps. Reports significant weight loss 30L in 3 months. In the ED, temp 98.3, HR 96, R 18, O2 sat 93%, BP 100/74. WBC 2.3, Hg 12.4, Plat 249. Bands 13%. Creat 0.7. LDH 549. AST 48. UA neg. Viral hepatitis panel neg. Blood culture 05/20/2018 no growth today. CXR showed early left sided infiltrate. Review of Systems: General: no fever, chills, nightsweats, +weight loss, +anorexia, +odynophagia Cutaneous: no rash, pruritus Head: no headaches or injury Eyes: no changes in vision, eye pain, double vision Ears: no ear pain, ear discharge, ringing or hearing loss Nose: no nose bleeding, stuffiness Mouth & throat: no bleeding gums, no horseness, no dental problems, or swollen glands Neck: no pain, node enlargement/lumps, tyroid enlargement or tenderness Respiratory: + cough, +AVILA, +SOB, + sputum, no hemoptysis, pleuritic chest pain Cardiovascular: no chest pain, leg edema, cyanosis, AVILA, orthopnea Musculoskeletal: no decreased joint motion, bone or joint pain, joint swelling, muscle aches Gastrointestinal: no nausea, vomiting, hematemesis, diarrhea, constipation, melena, bright red blood in stools, fecal incontinence, jaundice Genitourinary/Reproductive: no frequent urination, dysuria, hematuria, incontinence Neurogical: no seizures, no headaches, no weakness, no paresthesias, no loss of speech or vision; no memory loss, no vertigo, no tremors, no numbness Psychiatric: stable mood; no excessive anxiety, sadness or moodiness Medications and Allergies Allergies Allergy/AdvReac Type Severity Reaction Status Date / Time No Known Allergies Allergy Verified 10/24/17 05:20 Home Medications Medication Instructions Recorded Confirmed Last Taken Type levETIRAcetam [Keppra] 500 mg PO BID 02/20/18 05/20/18 05/19/18 History Active Meds: Active Medications Acetaminophen (Tylenol) 650 mg PO Q4H PRN PRN Reason: Pain MILD(1-3)/Fever >100.5/SHIELDS Enoxaparin Sodium (Lovenox) 40 mg SUB-Q QDAY [facility] Last Admin: 05/21/18 10:39 Dose: Not Given Documented by: Hydromorphone HCl (Dilaudid) 0.5 mg IV Q3H PRN PRN Reason: Pain , Severe (7-10) Azithromycin 500 mg/ Sodium (Chloride) 250 mls @ 250 mls/hr IV Q24HR [facility]; Protocol Last Admin: 05/21/18 11:00 Dose: 250 mls/hr Documented by: Ceftriaxone Sodium (Rocephin/Ns 2 Gm/100 Ml) 2 gm in 100 mls @ 200 mls/hr IV Q24HR [facility]; Protocol Last Admin: 05/21/18 10:30 Dose: 200 mls/hr Documented by: Fluconazole (Diflucan) 200 mls @ 100 mls/hr IV Q24HR@2200 [facility]; Protocol Ondansetron HCl (Zofran) 4 mg IV Q8H PRN PRN Reason: Nausea And Vomiting Oxycodone/Acetaminophen (Percocet 5/325) 1 tab PO Q6H PRN PRN Reason: Pain, Moderate (4-6) Sodium Chloride (Sodium Chloride Flush Syringe 10 Ml) 10 ml IV BID [facility] Stop: 05/21/18 21:59 Last Admin: 05/21/18 10:36 Dose: Not Given Documented by: Sodium Chloride (Sodium Chloride Flush Syringe 10 Ml) 10 ml IV PRN PRN PRN Reason: LINE FLUSH Zolpidem Tartrate (Ambien) 5 mg PO QHS PRN PRN Reason: Insomnia Physical Examination - Physical Exam Narrative exam: General appearance: Alert in NAD, conversant cachetic Eyes: anicteric sclerae, moist conjunctivae; no lid-lag; PERRLA HENT: Atraumatic; oropharynx +significant thrush; normal hard and soft palate. Normal external ears. Neck: Trachea midline; supple, no thyromegaly or lymphadenopathy Lungs: bilateral scattered crackles CV: RRR, no murmurs Abdomen: Soft, non-tender; no masses or hepatosplenomegaly Extremities: No peripheral edema or extremity lymphadenopathy Skin: Normal temperature, turgor and texture; no rash, ulcers or subcutaneous nodules Psych: Appropriate affect, alert and oriented to person, place and time. Neuro: alert and oriented x 3. Moving all extermities - Constitutional Vitals: Vital Signs Temp Pulse Resp BP Pulse Ox 98.6 F 84 18 99/67 95 05/21/18 05:54 05/21/18 05:54 05/21/18 05:54 05/21/18 05:54 05/21/18 05:54 Temperature -Last 24 Hours Temperature 98.6 F Temperature 98.5 F Temperature 99.5 F Temperature 99.1 F Temperature 99.2 F Results - Labs CBC & Chem 7: 05/21/18 05:32 05/21/18 05:32 Labs: Abnormal lab results 05/20/18 05/20/18 05/21/18 Range/Units 11:25 11:54 05:32 WBC 2.0 L (4.5-11.0) K/mm3 RBC 3.58 L (3.65-5.03) M/mm3 Hgb 10.0 L (11.8-15.2) gm/dl Hct 29.8 L D (35.5-45.6) % MCV 83 L (84-94) fl RDW 16.5 H (13.2-15.2) % Lymphocytes % (Manual) 8.0 L (13.4-35.0) % Monocytes % (Manual) 16.0 H 14.0 H (0.0-7.3) % Eosinophils % (Manual) 8.0 H (0.0-4.3) % Seg Neutrophils # Man 1.4 L 1.2 L (1.8-7.7) K/mm3 Lymphocytes # (Manual) 0.2 L 0.3 L (1.2-5.4) K/mm3 Creatinine (0.8-1.5) mg/dL Calcium (8.4-10.2) mg/dL Alkaline Phosphatase (35-129) units/L Lactate Dehydrogenase 549 H (91-180) units/L Total Protein (6.3-8.2) g/dL Albumin (3.9-5) g/dL 05/21/18 Range/Units 05:32 WBC (4.5-11.0) K/mm3 RBC (3.65-5.03) M/mm3 Hgb (11.8-15.2) gm/dl Hct (35.5-45.6) % MCV (84-94) fl RDW (13.2-15.2) % Lymphocytes % (Manual) (13.4-35.0) % Monocytes % (Manual) (0.0-7.3) % Eosinophils % (Manual) (0.0-4.3) % Seg Neutrophils # Man (1.8-7.7) K/mm3 Lymphocytes # (Manual) (1.2-5.4) K/mm3 Creatinine 0.6 L (0.8-1.5) mg/dL Calcium 8.3 L (8.4-10.2) mg/dL Alkaline Phosphatase 179 H (35-129) units/L Lactate Dehydrogenase (91-180) units/L Total Protein 6.0 L D (6.3-8.2) g/dL Albumin 2.9 L (3.9-5) g/dL Assessment and Plan Cultures: Blood culture 05/20/2018 no growth today. Assessment: 48 y/o male with history of cocaine abuse, Gonorrhea and HIV diagnosed in 2017,; admitted on 05/20/2018 due to 3-week history of cough with yellowish sputum, SOB, AVILA, nasal congestion and difficulty swallowin) Sepsis: Present on admission, manifested by tachycardia, hypotension, neutropenia. Etiology most likely AIDS +/- PJP pneumonia. 2) Presumed PJP pneumonia versus CAP with mild hypoxemia: O2 sat 93%, LDH 549, CXR showed early left sided infiltrate. Blood culture 05/20/2018 no growth today. 3) Severe oral candidiasis 4) Weight loss/AIDS cachexia 5) Neutropenia 6) HIV infection: unknown CD4/VL. Diagnosed in 2018 non treated non compliance, [facility] but never went back because he did not like the way he was treated Recommendations: - follow-up blood cultures - check sputum DFA - check Cryptococcal serum antigen and CMV DNA - check CD4, HIV-viral load and HIV-genotype - check AFB-blood culture - start bactrim IV for PJP treatement - continue ceftriaoxne and azithromycin for now - continue fluconazole IV Will follow. Mirna Pizarro MD Infectious Diseases [facility] M [phone] O [phone]
[2018-05-21] MEDS ORDERED: BACTRIM DS PO SCH (14:00)
[2018-05-21] MEDS: BACTRIM 300 MG in D5W 500 ML IV SCH (15:32)
[2018-05-21] MEDS: DELTASONE PO SCH ×2 (15:42→22:59)
[2018-05-21] MEDS: DIFLUCAN 200 ML IV SCH (23:00)
[2018-05-21] MEDS: KEPPRA PO SCH (23:01)
[2018-05-22] MEDS: BACTRIM 300 MG in D5W 500 ML IV SCH ×4 (01:21→17:35)
--- NOTE | 2018-05-22 10:12 | Progress Note ---
Assessment and Plan Cultures: Blood culture 05/20/2018 no growth today. Assessment: 48 y/o male with history of cocaine abuse, Gonorrhea and HIV diagnosed in 2018,; admitted on 05/20/2018 due to 3-week history of cough with yellowish sputum, SOB, AVILA, nasal congestion and difficulty swallowin) Sepsis: Improved, Present on admission, manifested by tachycardia, hypotension, neutropenia. Etiology most likely AIDS +/- PJP pneumonia. 2) Presumed PJP pneumonia versus CAP with mild hypoxemia: O2 sat 93%, LDH 549, CXR showed early left sided infiltrate. Blood culture 05/20/2018 no growth today. 3) Severe oral candidiasis 4) Weight loss/AIDS cachexia 5) Neutropenia 6) HIV infection: unknown CD4/VL. Diagnosed in 2018 non treated non compliance, [facility] but never went back because he did not like the way he was treated Recommendations: - follow-up blood cultures - follow ip sputum DFA - f/u Cryptococcal serum antigen and CMV DNA - f/u CD4, HIV-viral load and HIV-genotype - f/u AFB-blood culture - continue bactrim IV for PJP treatement - continue ceftriaxone and azithromycin for now - continue fluconazole IV [facility] M: [phone] O:[phone] Subjective Date of service: 05/22/18 Interval history: Patient seen and examined. Agitated , no acute distress observed. Nurses notes, labs, reports reviewed, discussed with patient, verbalized understanding about current treatment plan. Objective - Exam Narrative Exam: Narrative exam: General appearance: Alert in NAD, agitated, cachetic Eyes: anicteric sclerae, moist conjunctivae; no lid-lag; PERRLA HENT: Atraumatic; oropharynx +significant thrush; normal hard and soft palate. Normal external ears. Neck: Trachea midline; supple, no thyromegaly or lymphadenopathy Lungs: bilateral scattered crackles CV: RRR, no murmurs Abdomen: Soft, non-tender; no masses or hepatosplenomegaly Extremities: No peripheral edema or extremity lymphadenopathy Skin: Normal temperature, turgor and texture; no rash, ulcers or subcutaneous nodules Psych: Agitated, alert and oriented to person, place and time. Neuro: alert and oriented x 3. Moving all extermities - Constitutional Vitals: Vital Signs Temp Pulse Resp BP Pulse Ox 98.3 F 77 20 130/95 94 05/22/18 05:25 05/21/18 23:45 05/22/18 05:25 05/22/18 05:25 05/21/18 23:45 Temperature -Last 24 Hours Temperature 98.3 F Temperature 97.8 F Temperature 99.5 F Temperature 98.6 F - Labs CBC & Chem 7: 05/21/18 05:32 05/21/18 05:32
--- NOTE | 2018-05-22 11:04 | Progress Note ---
Assessment and Plan Assessment and plan: Sepsis. Present on admission. Patient meets criteria given the tachycardia, hypotension and neutropenia. Etiology secondary to AIDS, P.J. P pneumonia. Follow up blood and sputum cultures. Continue antibiotics per ID Acute hypoxemic respiratory failure. Etiology secondary to pneumonia. Continue O2 to maintain sats. Presumed P.J. P pneumonia versus Community acquired pneumonia. Continue IV ant ibiotics and follow serial chest x-ray. Follow AFB culture. HIV. ID following. Follow up CD4, HIV viral load and HIV genotype. Severe Oral candidiasis. Continue Diflucan. Neutropenia. AIDS cachexia/severe protein calorie malnutrition. Consult dietitian. History Interval history: No new issues overnight. Hospitalist Physical - Constitutional Vitals: Temp Pulse Resp BP Pulse Ox 98.3 F 77 20 130/95 94 05/22/18 05:25 05/21/18 23:45 05/22/18 05:25 05/22/18 05:25 05/21/18 23:45 General appearance: Present: no acute distress, well-nourished - EENT Eyes: Present: PERRL, EOM intact ENT: hearing intact, clear oral mucosa, dentition normal - Neck Neck: Present: supple, normal ROM - Respiratory Respiratory effort: normal Respiratory: bilateral: diminished, rhonchi - Cardiovascular Rhythm: regular Heart Sounds: Present: S1 & S2. Absent: gallop, rub - Extremities Extremities: no ischemia, No edema, Full ROM - Abdominal General gastrointestinal: soft, non-tender, non-distended, normal bowel sounds - Integumentary Integumentary: Present: clear, warm, dry - Neurologic Neurologic: CNII-XII intact, moves all extremities Results - Labs CBC & Chem 7: 05/21/18 05:32 05/21/18 05:32 Labs: Laboratory Last Values WBC 2.0 K/mm3 (4.5-11.0) L 05/21/18 05:32 RBC 3.58 M/mm3 (3.65-5.03) L 05/21/18 05:32 Hgb 10.0 gm/dl (11.8-15.2) L 05/21/18 05:32 Hct 29.8 % (35.5-45.6) L D 05/21/18 05:32 MCV 83 fl (84-94) L 05/21/18 05:32 MCH 28 pg (28-32) 05/21/18 05:32 MCHC 34 % (32-34) 05/21/18 05:32 RDW 16.5 % (13.2-15.2) H 05/21/18 05:32 Plt Count 272 K/mm3 (140-440) 05/21/18 05:32 [place] % (Auto) Distribution Estimator 05/20/18 11:54 Eos % (Auto) Distribution Estimator 05/20/18 11:54 Add Manual Diff Complete 05/21/18 05:32 Total Counted 100 05/21/18 05:32 Seg Neutrophils % Distribution Estimator 05/20/18 11:54 Seg Neuts % (Manual) 60.0 % (40.0-70.0) 05/21/18 05:32 Band Neutrophils % 1.0 % 05/21/18 05:32 Lymphocytes % (Manual) 17.0 % (13.4-35.0) 05/21/18 05:32 Reactive Lymphs % (Man) 0 % 05/21/18 05:32 Monocytes % (Manual) 14.0 % (0.0-7.3) H 05/21/18 05:32 Eosinophils % (Manual) 8.0 % (0.0-4.3) H 05/21/18 05:32 Basophils % (Manual) 0 % (0.0-1.8) 05/21/18 05:32 Metamyelocytes % 0 % 05/21/18 05:32 Myelocytes % 0 % 05/21/18 05:32 Promyelocytes % 0 % 05/21/18 05:32 Blast Cells % 0 % 05/21/18 05:32 Nucleated RBC % Not Reportable 05/21/18 05:32 Seg Neutrophils # Distribution Estimator 05/20/18 11:54 Seg Neutrophils # Man 1.2 K/mm3 (1.8-7.7) L 05/21/18 05:32 Band Neutrophils # 0.0 K/mm3 05/21/18 05:32 Lymphocytes # (Manual) 0.3 K/mm3 (1.2-5.4) L 05/21/18 05:32 Abs React Lymphs (Man) 0.0 K/mm3 05/21/18 05:32 Monocytes # (Manual) 0.3 K/mm3 (0.0-0.8) 05/21/18 05:32 Eosinophils # (Manual) 0.2 K/mm3 (0.0-0.4) 05/21/18 05:32 Basophils # (Manual) 0.0 K/mm3 (0.0-0.1) 05/21/18 05:32 Metamyelocytes # 0.0 K/mm3 05/21/18 05:32 Myelocytes # 0.0 K/mm3 05/21/18 05:32 Promyelocytes # 0.0 K/mm3 05/21/18 05:32 Blast Cells # 0.0 K/mm3 05/21/18 05:32 WBC Morphology Not Reportable 05/21/18 05:32 Hypersegmented Neuts Not Reportable 05/21/18 05:32 Hyposegmented Neuts Not Reportable 05/21/18 05:32 Hypogranular Neuts Not Reportable 05/21/18 05:32 Smudge Cells Not Reportable 05/21/18 05:32 Toxic Granulation Not Reportable 05/21/18 05:32 Toxic Vacuolation Not Reportable 05/21/18 05:32 Dohle Bodies Few 05/21/18 05:32 Pelger-Huet Anomaly Not Reportable 05/21/18 05:32 Arabella Rods Not Reportable 05/21/18 05:32 Platelet Estimate Consistent w auto 05/21/18 05:32 Clumped Platelets Not Reportable 05/21/18 05:32 Plt Clumps, EDTA Not Reportable 05/21/18 05:32 Large Platelets Not Reportable 05/21/18 05:32 Giant Platelets Not Reportable 05/21/18 05:32 Platelet Satelliting Not Reportable 05/21/18 05:32 Plt Morphology Comment Not Reportable 05/21/18 05:32 RBC Morphology Not Reportable 05/21/18 05:32 Dimorphic RBCs Not Reportable 05/21/18 05:32 Polychromasia Not Reportable 05/21/18 05:32 Hypochromasia Not Reportable 05/21/18 05:32 Poikilocytosis 1+ 05/21/18 05:32 Anisocytosis 1+ 05/21/18 05:32 Microcytosis Not Reportable 05/21/18 05:32 Macrocytosis Not Reportable 05/21/18 05:32 Spherocytes Not Reportable 05/21/18 05:32 Pappenheimer Bodies Not Reportable 05/21/18 05:32 Sickle Cells Not Reportable 05/21/18 05:32 Target Cells Not Reportable 05/21/18 05:32 Tear Drop Cells Not Reportable 05/21/18 05:32 Ovalocytes Few 05/21/18 05:32 Helmet Cells Not Reportable 05/21/18 05:32 [place] Bodies Not Reportable 05/21/18 05:32 [place] Rings Not Reportable 05/21/18 05:32 [place] Cells Not Reportable 05/21/18 05:32 Bite Cells Not Reportable 05/21/18 05:32 Crenated Cell Not Reportable 05/21/18 05:32 Elliptocytes Not Reportable 05/21/18 05:32 Acanthocytes (Spur) Not Reportable 05/21/18 05:32 Rouleaux Not Reportable 05/21/18 05:32 Hemoglobin C Crystals Not Reportable 05/21/18 05:32 Schistocytes Not Reportable 05/21/18 05:32 Malaria parasites Not Reportable 05/21/18 05:32 Yuriy Bodies Not Reportable 05/21/18 05:32 Hem Pathologist Commnt No 05/21/18 05:32 APTT 29.4 Sec. (24.2-36.6) 05/20/18 13:18 Sodium 142 mmol/L (137-145) D 05/21/18 05:32 Potassium 4.2 mmol/L (3.6-5.0) 05/21/18 05:32 Chloride 105.1 mmol/L (98-107) 05/21/18 05:32 Carbon Dioxide 28 mmol/L (22-30) 05/21/18 05:32 Anion Gap 13 mmol/L 05/21/18 05:32 BUN 10 mg/dL (9-20) 05/21/18 05:32 Creatinine 0.6 mg/dL (0.8-1.5) L 05/21/18 05:32 Estimated GFR > 60 ml/min 05/21/18 05:32 BUN/Creatinine Ratio 17 % 05/21/18 05:32 Glucose 88 mg/dL (75-100) 05/21/18 05:32 Hemoglobin A1c 5.8 % (4-6) 05/20/18 18:56 Lactic Acid 1.10 mmol/L (0.7-2.0) 05/20/18 16:00 Calcium 8.3 mg/dL (8.4-10.2) L 05/21/18 05:32 Magnesium 2.40 mg/dL (1.7-2.3) H 05/20/18 11:54 Total Bilirubin 0.20 mg/dL (0.1-1.2) 05/21/18 05:32 AST 28 units/L (5-40) 05/21/18 05:32 ALT 28 units/L (7-56) 05/21/18 05:32 Alkaline Phosphatase 179 units/L (35-129) H 05/21/18 05:32 Lactate Dehydrogenase 549 units/L (91-180) H 05/20/18 11:25 Total Protein 6.0 g/dL (6.3-8.2) L D 05/21/18 05:32 Albumin 2.9 g/dL (3.9-5) L 05/21/18 05:32 Albumin/Globulin Ratio 0.9 % 05/21/18 05:32 Urine Color Yellow (Yellow) 05/20/18 Unknown Urine Turbidity Clear (Clear) 05/20/18 Unknown Urine pH 6.0 (5.0-7.0) 05/20/18 Unknown Ur Specific [place] 1.027 (1.003-1.030) 05/20/18 Unknown Urine Protein 30 mg/dl mg/dL (Negative) 05/20/18 Unknown Urine Glucose (UA) Neg mg/dL (Negative) 05/20/18 Unknown Urine Ketones Neg mg/dL (Negative) 05/20/18 Unknown Urine Blood Neg (Negative) 05/20/18 Unknown Urine Nitrite Neg (Negative) 05/20/18 Unknown Urine Bilirubin Neg (Negative) 05/20/18 Unknown Urine Urobilinogen < 2.0 mg/dL (<2.0) 05/20/18 Unknown Ur Leukocyte Esterase Neg (Negative) 05/20/18 Unknown Urine WBC (Auto) 1.0 /HPF (0.0-6.0) 05/20/18 Unknown Urine RBC (Auto) 3.0 /HPF (0.0-6.0) 05/20/18 Unknown Urine Mucus Few /HPF 05/20/18 Unknown Hepatitis A IgM Ab Non-reactive (NonReactive) 05/21/18 07:16 Hep Bs Antigen Non-reactive (Negative) 05/21/18 07:16 Hep B Core IgM Ab Non-reactive (NonReactive) 05/21/18 07:16 Hepatitis C Antibody Non-reactive (NonReactive) 05/21/18 07:16 Nutrition/Malnutrition Assess - Dietary Evaluation Nutrition/Malnutrition Findings: Nutrition Notes Start: 05/21/18 15:06 Freq: Status: Active Protocol: Document 05/21/18 15:06 RM (Rec: 05/21/18 15:19 RM [id number]) Nutrition Notes Need for Assessment generated from: MD Order Initial or Follow up Assessment Other Pertinent Diagnosis HIV, Pneu, Oral Candidiasis, Seizure disorder, Bipolar disorder Current Diet Regular Labs/Tests Reviewed Pertinent Medications Reviewed Height 5 ft 6 in Weight 62.2 kg Usual Body Weight 70.45 kg [place] Body Weight (kg) 64.54 BMI 22.1 Subjective/Other Information Consulted for ONS recommendation. 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 Stated that [employer]TER GYPSUM pt ate 1 meal daily and is unable to eat the facility's meals d /t them being too hard. Stated UBW was 155 lbs but unsure how long ago he saw that he weighed that. Noted temporal wasting. 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 No Is Patient Ambulatory and/or Out of Bed Yes REE-([facility]-ambulatory/OOB) [ 1871.675 NUTR.MSJOOB] Calculation Used for Recommendations [facility] Additional Notes Protein Needs: (1.2-1.5g/kg) Fluid Needs: 1 ml/kcal Nutrition Intervention Change Diet Order: Add Mech soft w/ground meat modification Add Supplement/Snack (indicate name/kcal Ensure Enlive BID /protein ) Provides kCal: 700 Provides Protein (gm) 40 Goal #1 Meet at least 75% of calorie and protein needs via PO and ONS intakes Goal #2 Wt gain/maintenance Anticipated Discharge Needs: Unable to determine at this time Follow-Up By: 05/23/18 Additional Comments Follow for PO and oNS intakes
[2018-05-22] MEDS: LOVENOX SUB-Q SCH ×2 (11:34→11:39)
[2018-05-22] MEDS: ROCEPHIN/NS 2 GM/100 ML 2 GM/100 ML BAG IV SCH (11:35)
[2018-05-22] MEDS: DELTASONE PO SCH ×2 (11:35→21:46)
[2018-05-22] MEDS: KEPPRA PO SCH ×2 (11:35→21:44)
[2018-05-22] MEDS: ZITHROMAX 500 MG in NACL 0.9% 250ML 250 ML IV SCH (12:19)
[2018-05-22] MEDS: DIFLUCAN 200 ML IV SCH (21:46)
[2018-05-23] MEDS: BACTRIM 300 MG in D5W 500 ML IV SCH ×3 (00:15→12:00)
[2018-05-23] MEDS: DELTASONE PO SCH ×2 (09:58→22:32)
[2018-05-23] MEDS: ROCEPHIN/NS 2 GM/100 ML 2 GM/100 ML BAG IV SCH (09:58)
[2018-05-23] MEDS: KEPPRA PO SCH ×2 (09:58→22:33)
[2018-05-23] MEDS: LOVENOX SUB-Q SCH (10:07)
--- NOTE | 2018-05-23 10:40 | Progress Note ---
Assessment and Plan Cultures: Blood culture 05/20/2018 no growth today. Assessment: 48 y/o male with history of cocaine abuse, Gonorrhea and HIV diagnosed in 2018,; admitted on 05/20/2018 due to 3-week history of cough with yellowish sputum, SOB, AVILA, nasal congestion and difficulty swallowin) Sepsis: Improved, Present on admission, manifested by tachycardia, hypotension, neutropenia. Etiology most likely AIDS +/- PJP pneumonia. 2) Presumed PJP pneumonia versus CAP with mild hypoxemia: O2 sat 93%, LDH 549, CXR showed early left sided infiltrate. Blood culture 05/20/2018 no growth today. 3) Severe oral candidiasis 4) Weight loss/AIDS cachexia 5) Neutropenia 6) HIV infection: unknown CD4/VL. Diagnosed in 2018 non treated non compliance, patient [facility] but never went back because he did not like the way he was treated Recommendations: - follow-up blood cultures - follow ip sputum DFA - f/u Cryptococcal serum antigen and CMV DNA - f/u CD4, HIV-viral load and HIV-genotype - f/u AFB-blood culture - continue bactrim , switch to PO for PJP treatment - continue ceftriaxone and azithromycin for now - continue fluconazole IV -continue prednisone - If clinically better will d/c on bactrim DS 2 tab PO TID x 21 days, fluconazole 400 mg PO qday for 21 days. Ceftriaxone and azithromycin can be stopped and changed to amoxicillin 500 mg po TID for CAP x 5 days. Prednisone taper as follows 40mg po BID for three days, then 40 mg PO QD for five days, then 20mg PO for 11 days. - ID clinic f/u 06/06/18 to review labs and start ART. Radha Leonard NP [facility] M: [id number] O:[phone] Subjective Date of service: 05/23/18 Interval history: Patient seen and examined. Denied pain, SOB. No fevers. Discharge plan discussed, verbalized understanding. Objective - Exam Narrative Exam: Narrative exam: General appearance: Alert in NAD, agitated, cachetic Eyes: anicteric sclerae, moist conjunctivae; no lid-lag; PERRLA HENT: Atraumatic; oropharynx +significant thrush- improved, normal hard and soft palate. Normal external ears. Neck: Trachea midline; supple, no thyromegaly or lymphadenopathy Lungs: bilateral scattered crackles CV: RRR, no murmurs Abdomen: Soft, non-tender; no masses or hepatosplenomegaly Extremities: No peripheral edema or extremity lymphadenopathy Skin: Normal temperature, turgor and texture; no rash, ulcers or subcutaneous nodules Psych: Agitated, alert and oriented to person, place and time. Neuro: alert and oriented x 3. Moving all extermities - Constitutional Vitals: Vital Signs Temp Pulse Resp BP Pulse Ox 98.6 F 70 16 114/81 98 05/22/18 23:54 05/22/18 23:54 05/22/18 23:54 05/22/18 23:54 05/22/18 23:54 Temperature -Last 24 Hours Temperature 98.6 F Temperature 97.8 F Temperature 97.7 F - Labs CBC & Chem 7: 05/21/18 05:32 05/21/18 05:32
--- NOTE | 2018-05-23 10:41 | Progress Note ---
Assessment and Plan Assessment and plan: Sepsis. Etiology secondary to AIDS, P.J. P pneumonia. Follow up blood and sputum cultures. Continue antibiotics per ID Acute hypoxemic respiratory failure. Etiology secondary to pneumonia. Continue O2 to maintain sats. Presumed P.J. P pneumonia versus Community acquired pneumonia. Continue IV a ntibiotics and follow serial chest x-ray. Follow AFB culture. HIV. ID following. Follow up CD4, HIV viral load and HIV genotype. Severe Oral candidiasis. Continue Diflucan. Neutropenia. AIDS cachexia/severe protein calorie malnutrition. Consulted dietitian. History Interval history: No new issues overnight. Hospitalist Physical - Constitutional Vitals: Temp Pulse Resp BP Pulse Ox 98.6 F 70 16 114/81 98 05/22/18 23:54 05/22/18 23:54 05/22/18 23:54 05/22/18 23:54 05/22/18 23:54 General appearance: Present: no acute distress, well-nourished - EENT Eyes: Present: PERRL, EOM intact ENT: hearing intact, clear oral mucosa, dentition normal - Neck Neck: Present: supple, normal ROM - Respiratory Respiratory effort: normal Respiratory: bilateral: CTA - Cardiovascular Rhythm: regular Heart Sounds: Present: S1 & S2. Absent: gallop, rub - Extremities Extremities: no ischemia, No edema, Full ROM - Abdominal General gastrointestinal: soft, non-tender, non-distended, normal bowel sounds - Integumentary Integumentary: Present: clear, warm, dry - Neurologic Neurologic: CNII-XII intact, moves all extremities Results - Labs CBC & Chem 7: 05/21/18 05:32 05/21/18 05:32 Labs: Laboratory Last Values WBC 2.0 K/mm3 (4.5-11.0) L 05/21/18 05:32 RBC 3.58 M/mm3 (3.65-5.03) L 05/21/18 05:32 Hgb 10.0 gm/dl (11.8-15.2) L 05/21/18 05:32 Hct 29.8 % (35.5-45.6) L D 05/21/18 05:32 MCV 83 fl (84-94) L 05/21/18 05:32 MCH 28 pg (28-32) 05/21/18 05:32 MCHC 34 % (32-34) 05/21/18 05:32 RDW 16.5 % (13.2-15.2) H 05/21/18 05:32 Plt Count 272 K/mm3 (140-440) 05/21/18 05:32 [place] % (Auto) Trading Assistant 05/20/18 11:54 Eos % (Auto) Trading Assistant 05/20/18 11:54 Add Manual Diff Complete 05/21/18 05:32 Total Counted 100 05/21/18 05:32 Seg Neutrophils % Trading Assistant 05/20/18 11:54 Seg Neuts % (Manual) 60.0 % (40.0-70.0) 05/21/18 05:32 Band Neutrophils % 1.0 % 05/21/18 05:32 Lymphocytes % (Manual) 17.0 % (13.4-35.0) 05/21/18 05:32 Reactive Lymphs % (Man) 0 % 05/21/18 05:32 Monocytes % (Manual) 14.0 % (0.0-7.3) H 05/21/18 05:32 Eosinophils % (Manual) 8.0 % (0.0-4.3) H 05/21/18 05:32 Basophils % (Manual) 0 % (0.0-1.8) 05/21/18 05:32 Metamyelocytes % 0 % 05/21/18 05:32 Myelocytes % 0 % 05/21/18 05:32 Promyelocytes % 0 % 05/21/18 05:32 Blast Cells % 0 % 05/21/18 05:32 Nucleated RBC % Not Reportable 05/21/18 05:32 Seg Neutrophils # Trading Assistant 05/20/18 11:54 Seg Neutrophils # Man 1.2 K/mm3 (1.8-7.7) L 05/21/18 05:32 Band Neutrophils # 0.0 K/mm3 05/21/18 05:32 Lymphocytes # (Manual) 0.3 K/mm3 (1.2-5.4) L 05/21/18 05:32 Abs React Lymphs (Man) 0.0 K/mm3 05/21/18 05:32 Monocytes # (Manual) 0.3 K/mm3 (0.0-0.8) 05/21/18 05:32 Eosinophils # (Manual) 0.2 K/mm3 (0.0-0.4) 05/21/18 05:32 Basophils # (Manual) 0.0 K/mm3 (0.0-0.1) 05/21/18 05:32 Metamyelocytes # 0.0 K/mm3 05/21/18 05:32 Myelocytes # 0.0 K/mm3 05/21/18 05:32 Promyelocytes # 0.0 K/mm3 05/21/18 05:32 Blast Cells # 0.0 K/mm3 05/21/18 05:32 WBC Morphology Not Reportable 05/21/18 05:32 Hypersegmented Neuts Not Reportable 05/21/18 05:32 Hyposegmented Neuts Not Reportable 05/21/18 05:32 Hypogranular Neuts Not Reportable 05/21/18 05:32 Smudge Cells Not Reportable 05/21/18 05:32 Toxic Granulation Not Reportable 05/21/18 05:32 Toxic Vacuolation Not Reportable 05/21/18 05:32 Dohle Bodies Few 05/21/18 05:32 Pelger-Huet Anomaly Not Reportable 05/21/18 05:32 Arabella Rods Not Reportable 05/21/18 05:32 Platelet Estimate Consistent w auto 05/21/18 05:32 Clumped Platelets Not Reportable 05/21/18 05:32 Plt Clumps, EDTA Not Reportable 05/21/18 05:32 Large Platelets Not Reportable 05/21/18 05:32 Giant Platelets Not Reportable 05/21/18 05:32 Platelet Satelliting Not Reportable 05/21/18 05:32 Plt Morphology Comment Not Reportable 05/21/18 05:32 RBC Morphology Not Reportable 05/21/18 05:32 Dimorphic RBCs Not Reportable 05/21/18 05:32 Polychromasia Not Reportable 05/21/18 05:32 Hypochromasia Not Reportable 05/21/18 05:32 Poikilocytosis 1+ 05/21/18 05:32 Anisocytosis 1+ 05/21/18 05:32 Microcytosis Not Reportable 05/21/18 05:32 Macrocytosis Not Reportable 05/21/18 05:32 Spherocytes Not Reportable 05/21/18 05:32 Pappenheimer Bodies Not Reportable 05/21/18 05:32 Sickle Cells Not Reportable 05/21/18 05:32 Target Cells Not Reportable 05/21/18 05:32 Tear Drop Cells Not Reportable 05/21/18 05:32 Ovalocytes Few 05/21/18 05:32 Helmet Cells Not Reportable 05/21/18 05:32 [place] Bodies Not Reportable 05/21/18 05:32 [place] Rings Not Reportable 05/21/18 05:32 [place] Cells Not Reportable 05/21/18 05:32 Bite Cells Not Reportable 05/21/18 05:32 Crenated Cell Not Reportable 05/21/18 05:32 Elliptocytes Not Reportable 05/21/18 05:32 Acanthocytes (Spur) Not Reportable 05/21/18 05:32 Rouleaux Not Reportable 05/21/18 05:32 Hemoglobin C Crystals Not Reportable 05/21/18 05:32 Schistocytes Not Reportable 05/21/18 05:32 Malaria parasites Not Reportable 05/21/18 05:32 Yuriy Bodies Not Reportable 05/21/18 05:32 Hem Pathologist Commnt No 05/21/18 05:32 APTT 29.4 Sec. (24.2-36.6) 05/20/18 13:18 Sodium 142 mmol/L (137-145) D 05/21/18 05:32 Potassium 4.2 mmol/L (3.6-5.0) 05/21/18 05:32 Chloride 105.1 mmol/L (98-107) 05/21/18 05:32 Carbon Dioxide 28 mmol/L (22-30) 05/21/18 05:32 Anion Gap 13 mmol/L 05/21/18 05:32 BUN 10 mg/dL (9-20) 05/21/18 05:32 Creatinine 0.6 mg/dL (0.8-1.5) L 05/21/18 05:32 Estimated GFR > 60 ml/min 05/21/18 05:32 BUN/Creatinine Ratio 17 % 05/21/18 05:32 Glucose 88 mg/dL (75-100) 05/21/18 05:32 Hemoglobin A1c 5.8 % (4-6) 05/20/18 18:56 Lactic Acid 1.10 mmol/L (0.7-2.0) 05/20/18 16:00 Calcium 8.3 mg/dL (8.4-10.2) L 05/21/18 05:32 Magnesium 2.40 mg/dL (1.7-2.3) H 05/20/18 11:54 Total Bilirubin 0.20 mg/dL (0.1-1.2) 05/21/18 05:32 AST 28 units/L (5-40) 05/21/18 05:32 ALT 28 units/L (7-56) 05/21/18 05:32 Alkaline Phosphatase 179 units/L (35-129) H 05/21/18 05:32 Lactate Dehydrogenase 549 units/L (91-180) H 05/20/18 11:25 Total Protein 6.0 g/dL (6.3-8.2) L D 05/21/18 05:32 Albumin 2.9 g/dL (3.9-5) L 05/21/18 05:32 Albumin/Globulin Ratio 0.9 % 05/21/18 05:32 Urine Color Yellow (Yellow) 05/20/18 Unknown Urine Turbidity Clear (Clear) 05/20/18 Unknown Urine pH 6.0 (5.0-7.0) 05/20/18 Unknown Ur Specific [place] 1.027 (1.003-1.030) 05/20/18 Unknown Urine Protein 30 mg/dl mg/dL (Negative) 05/20/18 Unknown Urine Glucose (UA) Neg mg/dL (Negative) 05/20/18 Unknown Urine Ketones Neg mg/dL (Negative) 05/20/18 Unknown Urine Blood Neg (Negative) 05/20/18 Unknown Urine Nitrite Neg (Negative) 05/20/18 Unknown Urine Bilirubin Neg (Negative) 05/20/18 Unknown Urine Urobilinogen < 2.0 mg/dL (<2.0) 05/20/18 Unknown Ur Leukocyte Esterase Neg (Negative) 05/20/18 Unknown Urine WBC (Auto) 1.0 /HPF (0.0-6.0) 05/20/18 Unknown Urine RBC (Auto) 3.0 /HPF (0.0-6.0) 05/20/18 Unknown Urine Mucus Few /HPF 05/20/18 Unknown Hepatitis A IgM Ab Non-reactive (NonReactive) 05/21/18 07:16 Hep Bs Antigen Non-reactive (Negative) 05/21/18 07:16 Hep B Core IgM Ab Non-reactive (NonReactive) 05/21/18 07:16 Hepatitis C Antibody Non-reactive (NonReactive) 05/21/18 07:16 Nutrition/Malnutrition Assess - Dietary Evaluation Nutrition/Malnutrition Findings: Nutrition Notes Start: 05/21/18 15:06 Freq: Status: Active Protocol: Document 05/21/18 15:06 RM (Rec: 05/21/18 15:19 RM [id number]) Nutrition Notes Need for Assessment generated from: MD Order Initial or Follow up Assessment Other Pertinent Diagnosis HIV, Pneu, Oral Candidiasis, Seizure disorder, Bipolar disorder Current Diet Regular Labs/Tests Reviewed Pertinent Medications Reviewed Height 5 ft 6 in Weight 62.2 kg Usual Body Weight 70.45 kg [place] Body Weight (kg) 64.54 BMI 22.1 Subjective/Other Information Consulted for ONS recommendation. 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 Stated UBW was 155 lbs but unsure how long ago he saw that he weighed that. Noted temporal wasting. 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 No Is Patient Ambulatory and/or Out of Bed Yes REE-([facility]-ambulatory/OOB) [ 1871.675 NUTR.MSJOOB] Calculation Used for Recommendations [facility] Additional Notes Protein Needs: (1.2-1.5g/kg) Fluid Needs: 1 ml/kcal Nutrition Intervention Change Diet Order: Add Mech soft w/ground meat modification Add Supplement/Snack (indicate name/kcal Ensure Enlive BID /protein ) Provides kCal: 700 Provides Protein (gm) 40 Goal #1 Meet at least 75% of calorie and protein needs via PO and ONS intakes Goal #2 Wt gain/maintenance Anticipated Discharge Needs: Unable to determine at this time Follow-Up By: 05/23/18 Additional Comments Follow for PO and oNS intakes
[2018-05-23] MEDS: ZITHROMAX 500 MG in NACL 0.9% 250ML 250 ML IV SCH (10:51)
[2018-05-23] MEDS ORDERED: BACTRIM DS PO SCH (15:00)
[2018-05-23] MEDS: BACTRIM DS PO SCH (22:33)
[2018-05-23] MEDS: DIFLUCAN 200 ML IV SCH (22:33)
[2018-05-24] MEDS: BACTRIM DS PO SCH ×3 (06:09→22:49)
[2018-05-24] MEDS: DELTASONE PO SCH ×2 (09:15→22:48)
[2018-05-24] MEDS: KEPPRA PO SCH ×2 (09:16→22:49)
[2018-05-24] MEDS: ROCEPHIN/NS 2 GM/100 ML 2 GM/100 ML BAG IV SCH (09:16)
[2018-05-24] MEDS: SODIUM CHLORIDE FLUSH SYRINGE 10 ML IV PRN (09:17)
--- NOTE | 2018-05-24 09:42 | Progress Note ---
Assessment and Plan Cultures: Blood culture 05/20/2018 no growth today. Assessment: 48 y/o male with history of cocaine abuse, Gonorrhea and HIV diagnosed in 2018,; admitted on 05/20/2018 due to 3-week history of cough with yellowish sputum, SOB, AVILA, nasal congestion and difficulty swallowin) Sepsis: Resolved, Present on admission, manifested by tachycardia, hypotension, neutropenia. Etiology most likely AIDS +/- PJP pneumonia. 2) Presumed PJP pneumonia versus CAP with mild hypoxemia: O2 sat 93%, LDH 549, CXR showed early left sided infiltrate. Blood culture 05/20/2018 no growth today. 3) Severe oral candidiasis 4) Weight loss/AIDS cachexia 5) Neutropenia 6) HIV infection: unknown CD4/VL, Diagnosed in 2018 non treated non compliance, patient was [facility] but never went back because he did not like the way he was treated VL- [id number] Recommendations: - follow-up blood cultures - follow ip sputum DFA - f/u Cryptococcal serum antigen and CMV DNA - f/u CD4 and HIV-genotype - f/u AFB-blood culture - continue bactrim , switch to PO for PJP treatment - discontinue ceftriaxone and azithromycin - switch to fluconazole 400mg po q day -continue prednisone - If clinically better will d/c on bactrim DS 2 tab PO TID x 21 days, fluconazole 400 mg PO qday for 21 days. Ceftriaxone and azithromycin can be stopped and changed to amoxicillin 500 mg po TID for CAP x 5 days. Prednisone taper as follows 40mg po BID for three days, then 40 mg PO QD for five days, then 20mg PO for 11 days. - ID clinic f/u 06/06/18 to review labs and start ART. Dr. Blanco will be personal development coach this weekend , please call for questions. Radha Leonard NP [facility] M: [phone] O:[phone] Subjective Date of service: 05/24/18 Interval history: Patient seen and examined. Denied pain, SOB. No fevers. Discharge plan discussed, verbalized understanding. Objective - Exam Narrative Exam: Narrative exam: General appearance: Alert in NAD, agitated, cachetic Eyes: anicteric sclerae, moist conjunctivae; no lid-lag; PERRLA HENT: Atraumatic; oropharynx +significant thrush- improved, normal hard and soft palate. Normal external ears. Neck: Trachea midline; supple, no thyromegaly or lymphadenopathy Lungs: bilateral scattered crackles CV: RRR, no murmurs Abdomen: Soft, non-tender; no masses or hepatosplenomegaly Extremities: No peripheral edema or extremity lymphadenopathy Skin: Normal temperature, turgor and texture; no rash, ulcers or subcutaneous nodules Psych: Agitated, alert and oriented to person, place and time. Neuro: alert and oriented x 3. Moving all extermities - Constitutional Vitals: Vital Signs Temp Pulse Resp BP Pulse Ox 98.4 F 78 16 86/54 95 05/24/18 05:19 05/24/18 05:19 05/24/18 05:19 05/24/18 05:19 05/24/18 05:19 Temperature -Last 24 Hours Temperature 98.4 F Temperature 98.0 F Temperature 98.3 F Temperature 97.9 F - Labs CBC & Chem 7: 05/21/18 05:32 05/21/18 05:32
--- NOTE | 2018-05-24 10:34 | Progress Note ---
Assessment and Plan Assessment and plan: Sepsis. Etiology secondary to AIDS, P.J. P pneumonia. Follow up blood and sputum cultures. Continue antibiotics per ID Acute hypoxemic respiratory failure. Etiology secondary to pneumonia. Continue O2 to maintain sats. Presumed P.J. P pneumonia versus Community acquired pneumonia. Continue IV a ntibiotics and follow serial chest x-ray. Follow AFB culture. HIV. ID following. Follow up CD4, HIV viral load and HIV genotype. Severe Oral candidiasis. Continue Diflucan. Neutropenia. AIDS cachexia/severe protein calorie malnutrition. Consulted dietitian. History Interval history: No new issues overnight. Hospitalist Physical - Constitutional Vitals: Temp Pulse Resp BP Pulse Ox 98.4 F 78 16 86/54 95 05/24/18 05:19 05/24/18 05:19 05/24/18 05:19 05/24/18 05:19 05/24/18 05:19 General appearance: Present: no acute distress, well-nourished - EENT Eyes: Present: PERRL, EOM intact ENT: hearing intact, clear oral mucosa, dentition normal - Neck Neck: Present: supple, normal ROM - Respiratory Respiratory effort: normal Respiratory: bilateral: CTA - Cardiovascular Rhythm: regular Heart Sounds: Present: S1 & S2. Absent: gallop, rub - Extremities Extremities: no ischemia, No edema, Full ROM - Abdominal General gastrointestinal: soft, non-tender, non-distended, normal bowel sounds - Integumentary Integumentary: Present: clear, warm, dry - Neurologic Neurologic: CNII-XII intact, moves all extremities Results - Labs CBC & Chem 7: 05/21/18 05:32 05/21/18 05:32 Labs: Laboratory Last Values WBC 2.0 K/mm3 (4.5-11.0) L 05/21/18 05:32 RBC 3.58 M/mm3 (3.65-5.03) L 05/21/18 05:32 Hgb 10.0 gm/dl (11.8-15.2) L 05/21/18 05:32 Hct 29.8 % (35.5-45.6) L D 05/21/18 05:32 MCV 83 fl (84-94) L 05/21/18 05:32 MCH 28 pg (28-32) 05/21/18 05:32 MCHC 34 % (32-34) 05/21/18 05:32 RDW 16.5 % (13.2-15.2) H 05/21/18 05:32 Plt Count 272 K/mm3 (140-440) 05/21/18 05:32 [place] % (Auto) Spiritual Care Coordinator 05/20/18 11:54 Eos % (Auto) Spiritual Care Coordinator 05/20/18 11:54 Add Manual Diff Complete 05/21/18 05:32 Total Counted 100 05/21/18 05:32 Seg Neutrophils % Spiritual Care Coordinator 05/20/18 11:54 Seg Neuts % (Manual) 60.0 % (40.0-70.0) 05/21/18 05:32 Band Neutrophils % 1.0 % 05/21/18 05:32 Lymphocytes % (Manual) 17.0 % (13.4-35.0) 05/21/18 05:32 Reactive Lymphs % (Man) 0 % 05/21/18 05:32 Monocytes % (Manual) 14.0 % (0.0-7.3) H 05/21/18 05:32 Eosinophils % (Manual) 8.0 % (0.0-4.3) H 05/21/18 05:32 Basophils % (Manual) 0 % (0.0-1.8) 05/21/18 05:32 Metamyelocytes % 0 % 05/21/18 05:32 Myelocytes % 0 % 05/21/18 05:32 Promyelocytes % 0 % 05/21/18 05:32 Blast Cells % 0 % 05/21/18 05:32 Nucleated RBC % Not Reportable 05/21/18 05:32 Seg Neutrophils # Spiritual Care Coordinator 05/20/18 11:54 Seg Neutrophils # Man 1.2 K/mm3 (1.8-7.7) L 05/21/18 05:32 Band Neutrophils # 0.0 K/mm3 05/21/18 05:32 Lymphocytes # (Manual) 0.3 K/mm3 (1.2-5.4) L 05/21/18 05:32 Abs React Lymphs (Man) 0.0 K/mm3 05/21/18 05:32 Monocytes # (Manual) 0.3 K/mm3 (0.0-0.8) 05/21/18 05:32 Eosinophils # (Manual) 0.2 K/mm3 (0.0-0.4) 05/21/18 05:32 Basophils # (Manual) 0.0 K/mm3 (0.0-0.1) 05/21/18 05:32 Metamyelocytes # 0.0 K/mm3 05/21/18 05:32 Myelocytes # 0.0 K/mm3 05/21/18 05:32 Promyelocytes # 0.0 K/mm3 05/21/18 05:32 Blast Cells # 0.0 K/mm3 05/21/18 05:32 WBC Morphology Not Reportable 05/21/18 05:32 Hypersegmented Neuts Not Reportable 05/21/18 05:32 Hyposegmented Neuts Not Reportable 05/21/18 05:32 Hypogranular Neuts Not Reportable 05/21/18 05:32 Smudge Cells Not Reportable 05/21/18 05:32 Toxic Granulation Not Reportable 05/21/18 05:32 Toxic Vacuolation Not Reportable 05/21/18 05:32 Dohle Bodies Few 05/21/18 05:32 Pelger-Huet Anomaly Not Reportable 05/21/18 05:32 Arabella Rods Not Reportable 05/21/18 05:32 Platelet Estimate Consistent w auto 05/21/18 05:32 Clumped Platelets Not Reportable 05/21/18 05:32 Plt Clumps, EDTA Not Reportable 05/21/18 05:32 Large Platelets Not Reportable 05/21/18 05:32 Giant Platelets Not Reportable 05/21/18 05:32 Platelet Satelliting Not Reportable 05/21/18 05:32 Plt Morphology Comment Not Reportable 05/21/18 05:32 RBC Morphology Not Reportable 05/21/18 05:32 Dimorphic RBCs Not Reportable 05/21/18 05:32 Polychromasia Not Reportable 05/21/18 05:32 Hypochromasia Not Reportable 05/21/18 05:32 Poikilocytosis 1+ 05/21/18 05:32 Anisocytosis 1+ 05/21/18 05:32 Microcytosis Not Reportable 05/21/18 05:32 Macrocytosis Not Reportable 05/21/18 05:32 Spherocytes Not Reportable 05/21/18 05:32 Pappenheimer Bodies Not Reportable 05/21/18 05:32 Sickle Cells Not Reportable 05/21/18 05:32 Target Cells Not Reportable 05/21/18 05:32 Tear Drop Cells Not Reportable 05/21/18 05:32 Ovalocytes Few 05/21/18 05:32 Helmet Cells Not Reportable 05/21/18 05:32 Mendiola-[place] Bodies Not Reportable 05/21/18 05:32 [place]lma Rings Not Reportable 05/21/18 05:32 Obed Cells Not Reportable 05/21/18 05:32 Bite Cells Not Reportable 05/21/18 05:32 Crenated Cell Not Reportable 05/21/18 05:32 Elliptocytes Not Reportable 05/21/18 05:32 Acanthocytes (Spur) Not Reportable 05/21/18 05:32 Rouleaux Not Reportable 05/21/18 05:32 Hemoglobin C Crystals Not Reportable 05/21/18 05:32 Schistocytes Not Reportable 05/21/18 05:32 Malaria parasites Not Reportable 05/21/18 05:32 Yuriy Bodies Not Reportable 05/21/18 05:32 Hem Pathologist Commnt No 05/21/18 05:32 APTT 29.4 Sec. (24.2-36.6) 05/20/18 13:18 Sodium 142 mmol/L (137-145) D 05/21/18 05:32 Potassium 4.2 mmol/L (3.6-5.0) 05/21/18 05:32 Chloride 105.1 mmol/L (98-107) 05/21/18 05:32 Carbon Dioxide 28 mmol/L (22-30) 05/21/18 05:32 Anion Gap 13 mmol/L 05/21/18 05:32 BUN 10 mg/dL (9-20) 05/21/18 05:32 Creatinine 0.6 mg/dL (0.8-1.5) L 05/21/18 05:32 Estimated GFR > 60 ml/min 05/21/18 05:32 BUN/Creatinine Ratio 17 % 05/21/18 05:32 Glucose 88 mg/dL (75-100) 05/21/18 05:32 Hemoglobin A1c 5.8 % (4-6) 05/20/18 18:56 Lactic Acid 1.10 mmol/L (0.7-2.0) 05/20/18 16:00 Calcium 8.3 mg/dL (8.4-10.2) L 05/21/18 05:32 Magnesium 2.40 mg/dL (1.7-2.3) H 05/20/18 11:54 Total Bilirubin 0.20 mg/dL (0.1-1.2) 05/21/18 05:32 AST 28 units/L (5-40) 05/21/18 05:32 ALT 28 units/L (7-56) 05/21/18 05:32 Alkaline Phosphatase 179 units/L (35-129) H 05/21/18 05:32 Lactate Dehydrogenase 549 units/L (91-180) H 05/20/18 11:25 Total Protein 6.0 g/dL (6.3-8.2) L D 05/21/18 05:32 Albumin 2.9 g/dL (3.9-5) L 05/21/18 05:32 Albumin/Globulin Ratio 0.9 % 05/21/18 05:32 Urine Color Yellow (Yellow) 05/20/18 Unknown Urine Turbidity Clear (Clear) 05/20/18 Unknown Urine pH 6.0 (5.0-7.0) 05/20/18 Unknown Ur Specific [place] 1.027 (1.003-1.030) 05/20/18 Unknown Urine Protein 30 mg/dl mg/dL (Negative) 05/20/18 Unknown Urine Glucose (UA) Neg mg/dL (Negative) 05/20/18 Unknown Urine Ketones Neg mg/dL (Negative) 05/20/18 Unknown Urine Blood Neg (Negative) 05/20/18 Unknown Urine Nitrite Neg (Negative) 05/20/18 Unknown Urine Bilirubin Neg (Negative) 05/20/18 Unknown Urine Urobilinogen < 2.0 mg/dL (<2.0) 05/20/18 Unknown Ur Leukocyte Esterase Neg (Negative) 05/20/18 Unknown Urine WBC (Auto) 1.0 /HPF (0.0-6.0) 05/20/18 Unknown Urine RBC (Auto) 3.0 /HPF (0.0-6.0) 05/20/18 Unknown Urine Mucus Few /HPF 05/20/18 Unknown Hepatitis A IgM Ab Non-reactive (NonReactive) 05/21/18 07:16 Hep Bs Antigen Non-reactive (Negative) 05/21/18 07:16 Hep B Core IgM Ab Non-reactive (NonReactive) 05/21/18 07:16 Hepatitis C Antibody Non-reactive (NonReactive) 05/21/18 07:16 Nutrition/Malnutrition Assess - Dietary Evaluation Nutrition/Malnutrition Findings: Nutrition Notes Start: 05/21/18 15:06 Freq: Status: Active Protocol: Document 05/23/18 16:22 RM (Rec: 05/23/18 16:29 RM [id number]) Nutrition Notes Initial or Follow up Reassessment Other Pertinent Diagnosis HIV, Pneu, Oral Candidiasis, Seizure disorder,Bipolar disorder,Cocaine abuse Current Diet Mech soft w/Ensure BID Labs/Tests Reviewed Pertinent Medications Reviewed Height 5 ft 6 in Weight 62.8 kg [place] Body Weight (kg) 64.54 BMI 22.3 Subjective/Other Information Pt stated that he eats all of his meals and drinks the Ensure Enlive. Requested Ensure Enlive be increased to TID. Percent of energy/protein needs met: 100%/100% Burn Absent Trauma Absent #1 Nutrition Diagnosis Malnutrition Diagnosis Progress(for reassessment Continues documentation) Is patient on ventilator? No Is Patient Ambulatory and/or Out of Bed Yes REE[facility]OOB) [ 1879.475 NUTR.MSJOOB] Calculation Used for Recommendations [facility] Additional Notes Protein Needs: 75-94g (1.2-1. 5g/kg) Fluid Needs: 1 ml/kcal Nutrition Intervention Change Diet Order: Continue current Add Supplement/Snack (indicate name/kcal Ensure Enlive TID /protein ) Provides kCal: 1,050 Provides Protein (gm) 60 Goal #1 Continue to meet at least 75% of calorie and protein needs via PO and ONS intakes Goal #2 Wt gain/maintenance Anticipated Discharge Needs: Mech soft diet Follow-Up By: 05/30/18 Additional Comments Follow for PO and ONS intakes
[2018-05-24] MEDS: LOVENOX SUB-Q SCH (12:02)
[2018-05-24] MEDS: ZITHROMAX 500 MG in NACL 0.9% 250ML 250 ML IV SCH (12:17)
[2018-05-24 14:05] LABS: HIV-1 RNA QN PCR 5.5 Log cps/mL
[2018-05-24] MEDS: DIFLUCAN PO SCH (15:27)
[2018-05-25 06:16] LABS: Hemoglobin 11.8 gm/dl (11.8-15.2); Mean Corpuscular HGB Conc 33 % (32-34); Mean Corpuscular Volume 83 fl (84-94); Platelet Count 324 K/mm3 (140-440); Red Blood Count 4.34 M/mm3 (3.65-5.03); Red Cell Distribution Width 17.1 % (13.2-15.2)
[2018-05-25 06:33] LABS: BUN/Creatinine Ratio 23; Blood Urea Nitrogen 16 mg/dL (9-20); Calcium 9.4 mg/dL (8.4-10.2); Hemolysis Index 13
[2018-05-25] MEDS: BACTRIM DS PO SCH ×3 (06:41→22:40)
[2018-05-25 10:36] LABS: CD4/CD8 Ratio 0.04 (0.86-5.00)
[2018-05-25] MEDS: KEPPRA PO SCH ×2 (11:11→22:40)
[2018-05-25] MEDS: DIFLUCAN PO SCH (11:11)
[2018-05-25] MEDS: DELTASONE PO SCH ×2 (11:11→22:40)
[2018-05-25] MEDS: LOVENOX SUB-Q SCH (11:12)
[2018-05-25 11:55] LABS: Anisocytosis 1+; Basophils % (Manual) 0 % (0.0-1.8); Eosinophils % (Manual) 0 % (0.0-4.3); Platelet Estimate Consistent w Auto; Total Cells Counted 100
--- NOTE | 2018-05-25 12:05 | Progress Note ---
Assessment and Plan Assessment and plan: Sepsis. Etiology secondary to AIDS, P.J. P pneumonia. Follow up blood and sputum cultures. Continue antibiotics per ID. ID discontinue Rocephin and azithromycin. Continue fluconazole and Bactrim by mouth. Acute hypoxemic respiratory failure. Etiology secondary to pneumonia. Continue O2 to maintain sats. Steroids have been switched to by mouth. Presumed P.J. P pneumonia versus Community acquired pneumonia. Continue IV antibiotics and follow serial chest x-ray. Follow AFB culture. HIV. ID following. Follow up CD4, HIV viral load and HIV genotype. Severe Oral candidiasis. Continue Diflucan. Neutropenia. AIDS cachexia/severe protein calorie malnutrition. Consulted dietitian. Disposition. The patient continues to clinically improve patient will discharge on bactrim DS 2 tab PO TID x 21 days, fluconazole 400 mg PO qday for 21 days. Ceftriaxone and azithromycin can be stopped and changed to amoxicillin 500 mg po TID for CAP x 5 days. Prednisone taper as follows 40mg po BID for three days, then 40 mg PO QD for five days, then 20mg PO for 11 days. History Interval history: No new issues overnight. Hospitalist Physical - Constitutional Vitals: Temp Pulse Resp BP Pulse Ox 98.5 F 99 H 20 137/95 96 05/25/18 04:20 05/25/18 04:20 05/25/18 04:20 05/25/18 04:20 05/25/18 04:20 General appearance: Present: no acute distress, well-nourished - EENT Eyes: Present: PERRL, EOM intact ENT: hearing intact, clear oral mucosa, dentition normal - Neck Neck: Present: supple, normal ROM - Respiratory Respiratory effort: normal Respiratory: bilateral: CTA - Cardiovascular Rhythm: regular Heart Sounds: Present: S1 & S2. Absent: gallop, rub - Extremities Extremities: no ischemia, No edema, Full ROM - Abdominal General gastrointestinal: soft, non-tender, non-distended, normal bowel sounds - Integumentary Integumentary: Present: clear, warm, dry - Neurologic Neurologic: CNII-XII intact, moves all extremities Results - Labs CBC & Chem 7: 05/25/18 05:45 05/25/18 05:45 Labs: Laboratory Last Values WBC 4.7 K/mm3 (4.5-11.0) 05/25/18 05:45 RBC 4.34 M/mm3 (3.65-5.03) 05/25/18 05:45 Hgb 11.8 gm/dl (11.8-15.2) 05/25/18 05:45 Hct 36.0 % (35.5-45.6) 05/25/18 05:45 MCV 83 fl (84-94) L 05/25/18 05:45 MCH 27 pg (28-32) L 05/25/18 05:45 MCHC 33 % (32-34) 05/25/18 05:45 RDW 17.1 % (13.2-15.2) H 05/25/18 05:45 Plt Count 324 K/mm3 (140-440) 05/25/18 05:45 [place] % (Auto) Latexer 05/20/18 11:54 Eos % (Auto) Latexer 05/20/18 11:54 Add Manual Diff Complete 05/25/18 05:45 Total Counted 100 05/25/18 05:45 Seg Neutrophils % Latexer 05/20/18 11:54 Seg Neuts % (Manual) 88.0 % (40.0-70.0) H 05/25/18 05:45 Band Neutrophils % 1.0 % 05/25/18 05:45 Lymphocytes % (Manual) 4.0 % (13.4-35.0) L 05/25/18 05:45 Reactive Lymphs % (Man) 0 % 05/25/18 05:45 Monocytes % (Manual) 7.0 % (0.0-7.3) 05/25/18 05:45 Eosinophils % (Manual) 0 % (0.0-4.3) 05/25/18 05:45 Basophils % (Manual) 0 % (0.0-1.8) 05/25/18 05:45 Metamyelocytes % 0 % 05/25/18 05:45 Myelocytes % 0 % 05/25/18 05:45 Promyelocytes % 0 % 05/25/18 05:45 Blast Cells % 0 % 05/25/18 05:45 Nucleated RBC % Not Reportable 05/25/18 05:45 Seg Neutrophils # Latexer 05/20/18 11:54 Seg Neutrophils # Man 4.1 K/mm3 (1.8-7.7) 05/25/18 05:45 Band Neutrophils # 0.0 K/mm3 05/25/18 05:45 Abs Lymphs (Manual) 340 cells/uL (850-3900) L 05/21/18 14:46 Lymphocytes # (Manual) 0.2 K/mm3 (1.2-5.4) L 05/25/18 05:45 Abs React Lymphs (Man) 0.0 K/mm3 05/25/18 05:45 Monocytes # (Manual) 0.3 K/mm3 (0.0-0.8) 05/25/18 05:45 Eosinophils # (Manual) 0.0 K/mm3 (0.0-0.4) 05/25/18 05:45 Basophils # (Manual) 0.0 K/mm3 (0.0-0.1) 05/25/18 05:45 Metamyelocytes # 0.0 K/mm3 05/25/18 05:45 Myelocytes # 0.0 K/mm3 05/25/18 05:45 Promyelocytes # 0.0 K/mm3 05/25/18 05:45 Blast Cells # 0.0 K/mm3 05/25/18 05:45 WBC Morphology Not Reportable 05/25/18 05:45 Hypersegmented Neuts Not Reportable 05/25/18 05:45 Hyposegmented Neuts Not Reportable 05/25/18 05:45 Hypogranular Neuts Not Reportable 05/25/18 05:45 Smudge Cells Not Reportable 05/25/18 05:45 Toxic Granulation Not Reportable 05/25/18 05:45 Toxic Vacuolation Not Reportable 05/25/18 05:45 Dohle Bodies Not Reportable 05/25/18 05:45 Pelger-Huet Anomaly Not Reportable 05/25/18 05:45 Arabella Rods Not Reportable 05/25/18 05:45 Platelet Estimate Consistent w auto 05/25/18 05:45 Clumped Platelets Not Reportable 05/25/18 05:45 Plt Clumps, EDTA Not Reportable 05/25/18 05:45 Large Platelets Not Reportable 05/25/18 05:45 Giant Platelets Not Reportable 05/25/18 05:45 Platelet Satelliting Not Reportable 05/25/18 05:45 Plt Morphology Comment Not Reportable 05/25/18 05:45 RBC Morphology Not Reportable 05/25/18 05:45 Dimorphic RBCs Not Reportable 05/25/18 05:45 Polychromasia Not Reportable 05/25/18 05:45 Hypochromasia Not Reportable 05/25/18 05:45 Poikilocytosis Not Reportable 05/25/18 05:45 Anisocytosis 1+ 05/25/18 05:45 Microcytosis Not Reportable 05/25/18 05:45 Macrocytosis Not Reportable 05/25/18 05:45 Spherocytes Not Reportable 05/25/18 05:45 Pappenheimer Bodies Not Reportable 05/25/18 05:45 Sickle Cells Not Reportable 05/25/18 05:45 Target Cells Not Reportable 05/25/18 05:45 Tear Drop Cells Not Reportable 05/25/18 05:45 Ovalocytes Not Reportable 05/25/18 05:45 Helmet Cells Not Reportable 05/25/18 05:45 Mendi[place] Bodies Not Reportable 05/25/18 05:45 [place] Rings Not Reportable 05/25/18 05:45 Obed Cells Not Reportable 05/25/18 05:45 Bite Cells Not Reportable 05/25/18 05:45 Crenated Cell Not Reportable 05/25/18 05:45 Elliptocytes Not Reportable 05/25/18 05:45 Acanthocytes (Spur) Not Reportable 05/25/18 05:45 Rouleaux Not Reportable 05/25/18 05:45 Hemoglobin C Crystals Not Reportable 05/25/18 05:45 Schistocytes Not Reportable 05/25/18 05:45 Malaria parasites Not Reportable 05/25/18 05:45 Yuriy Bodies Not Reportable 05/25/18 05:45 Hem Pathologist Commnt No 05/25/18 05:45 APTT 29.4 Sec. (24.2-36.6) 05/20/18 13:18 Sodium 138 mmol/L (137-145) 05/25/18 05:45 Potassium 4.7 mmol/L (3.6-5.0) 05/25/18 05:45 Chloride 97.8 mmol/L (98-107) L 05/25/18 05:45 Carbon Dioxide 26 mmol/L (22-30) 05/25/18 05:45 Anion Gap 19 mmol/L 05/25/18 05:45 BUN 16 mg/dL (9-20) 05/25/18 05:45 Creatinine 0.7 mg/dL (0.8-1.5) L 05/25/18 05:45 Estimated GFR > 60 ml/min 05/25/18 05:45 BUN/Creatinine Ratio 23 % 05/25/18 05:45 Glucose 117 mg/dL (75-100) H 05/25/18 05:45 Hemoglobin A1c 5.8 % (4-6) 05/20/18 18:56 Lactic Acid 1.10 mmol/L (0.7-2.0) 05/20/18 16:00 Calcium 9.4 mg/dL (8.4-10.2) 05/25/18 05:45 Magnesium 2.40 mg/dL (1.7-2.3) H 05/20/18 11:54 Total Bilirubin 0.20 mg/dL (0.1-1.2) 05/21/18 05:32 AST 28 units/L (5-40) 05/21/18 05:32 ALT 28 units/L (7-56) 05/21/18 05:32 Alkaline Phosphatase 179 units/L (35-129) H 05/21/18 05:32 Lactate Dehydrogenase 549 units/L (91-180) H 05/20/18 11:25 Total Protein 6.0 g/dL (6.3-8.2) L D 05/21/18 05:32 Albumin 2.9 g/dL (3.9-5) L 05/21/18 05:32 Albumin/Globulin Ratio 0.9 % 05/21/18 05:32 Urine Color Yellow (Yellow) 05/20/18 Unknown Urine Turbidity Clear (Clear) 05/20/18 Unknown Urine pH 6.0 (5.0-7.0) 05/20/18 Unknown Ur Specific [place] 1.027 (1.003-1.030) 05/20/18 Unknown Urine Protein 30 mg/dl mg/dL (Negative) 05/20/18 Unknown Urine Glucose (UA) Neg mg/dL (Negative) 05/20/18 Unknown Urine Ketones Neg mg/dL (Negative) 05/20/18 Unknown Urine Blood Neg (Negative) 05/20/18 Unknown Urine Nitrite Neg (Negative) 05/20/18 Unknown Urine Bilirubin Neg (Negative) 05/20/18 Unknown Urine Urobilinogen < 2.0 mg/dL (<2.0) 05/20/18 Unknown Ur Leukocyte Esterase Neg (Negative) 05/20/18 Unknown Urine WBC (Auto) 1.0 /HPF (0.0-6.0) 05/20/18 Unknown Urine RBC (Auto) 3.0 /HPF (0.0-6.0) 05/20/18 Unknown Urine Mucus Few /HPF 05/20/18 Unknown Lymph Enumerat CD4/CD8 0.04 (0.86-5.00) L 05/21/18 14:46 % CD3 Cells 30 % (57-85) L 05/21/18 14:46 Absolute CD3 Count 102 cells/uL (840-3060) L 05/21/18 14:46 % CD4 Cells 1 % (30-61) L 05/21/18 14:46 Absolute CD4 Count 4 cells/uL (490-1740) L 05/21/18 14:46 % CD8 Cells 25 % (12-42) 05/21/18 14:46 Absolute CD8 Count 88 cells/uL (180-1170) L 05/21/18 14:46 % CD19 Cells 11 % (6-29) 05/21/18 14:46 Absolute CD19 Count 38 cells/uL (110-660) L 05/21/18 14:46 Hepatitis A IgM Ab Non-reactive (NonReactive) 05/21/18 07:16 Hep Bs Antigen Non-reactive (Negative) 05/21/18 07:16 Hep B Core IgM Ab Non-reactive (NonReactive) 05/21/18 07:16 Hepatitis C Antibody Non-reactive (NonReactive) 05/21/18 07:16 HIV-1 RNA PCR copies/ml [id number] Copies/mL H 05/21/18 14:46 HIV-1 RNA (PCR) log 5.50 Log cps/mL H 05/21/18 14:46 Nutrition/Malnutrition Assess - Dietary Evaluation Nutrition/Malnutrition Findings: Nutrition Notes Start: 05/21/18 15:06 Freq: Status: Active Protocol: Document 05/23/18 16:22 RM (Rec: 05/23/18 16:29 RM [id number]) Nutrition Notes Initial or Follow up Reassessment Other Pertinent Diagnosis HIV, Pneu, Oral Candidiasis, Seizure disorder,Bipolar disorder,Cocaine abuse Current Diet [facility] soft w/Ensure BID Labs/Tests Reviewed Pertinent Medications Reviewed Height 5 ft 6 in Weight 62.8 kg [place] Body Weight (kg) 64.54 BMI 22.3 Subjective/Other Information Pt stated that he eats all of his meals and drinks the Ensure Enlive. Requested Ensure Enlive be increased to TID. Percent of energy/protein needs met: 100%/100% Burn Absent Trauma Absent #1 Nutrition Diagnosis Malnutrition Diagnosis Progress(for reassessment Continues documentation) Is patient on ventilator? No Is Patient Ambulatory and/or Out of Bed Yes REE-([facility]-ambulatory/OOB) [ 1879.475 NUTR.MSJOOB] Calculation Used for Recommendations [facility] Additional Notes Protein Needs: 75-94g (1.2-1. 5g/kg) Fluid Needs: 1 ml/kcal Nutrition Intervention Change Diet Order: Continue current Add Supplement/Snack (indicate name/kcal Ensure Enlive TID /protein ) Provides kCal: 1,050 Provides Protein (gm) 60 Goal #1 Continue to meet at least 75% of calorie and protein needs via PO and ONS intakes Goal #2 Wt gain/maintenance Anticipated Discharge Needs: [facility] soft diet Follow-Up By: 05/30/18 Additional Comments Follow for PO and ONS intakes
[2018-05-26] MEDS: BACTRIM DS PO SCH ×3 (06:48→23:06)
[2018-05-26] MEDS: KEPPRA PO SCH ×2 (10:38→23:07)
[2018-05-26] MEDS: DELTASONE PO SCH ×2 (10:38→23:06)
[2018-05-26] MEDS: DIFLUCAN PO SCH (10:49)
[2018-05-26] MEDS: LOVENOX SUB-Q SCH (10:49)
--- NOTE | 2018-05-26 11:20 | Progress Note ---
Assessment and Plan Assessment and plan: Sepsis. Etiology secondary to AIDS, P.J. P pneumonia. Follow up blood and sputum cultures. Continue antibiotics per ID. ID discontinue Rocephin and azithromycin. Continue fluconazole and Bactrim by mouth. Acute hypoxemic respiratory failure. Etiology secondary to pneumonia. Continue O2 to maintain sats. Steroids have been switched to by mouth. Presumed P.J. P pneumonia versus Community acquired pneumonia. Continue IV antibiotics and follow serial chest x-ray. Follow AFB culture. HIV. ID following. Follow up CD4, HIV viral load and HIV genotype. Severe Oral candidiasis. Continue Diflucan. Neutropenia. AIDS cachexia/severe protein calorie malnutrition. Consulted dietitian. Disposition. The patient continues to clinically improve patient will discharge on bactrim DS 2 tab PO TID x 21 days, fluconazole 400 mg PO qday for 21 days. Ceftriaxone and azithromycin can be stopped and changed to amoxicillin 500 mg po TID for CAP x 5 days. Prednisone taper as follows 40mg po BID for three days, then 40 mg PO QD for five days, then 20mg PO for 11 days. Anticipate discharge in a.m. Social work to potentially arrange for new living situation. History Interval history: No new issues overnight. Hospitalist Physical - Constitutional Vitals: Temp Pulse Resp BP Pulse Ox 97.3 F L 74 18 104/73 94 05/26/18 05:09 05/26/18 05:09 05/26/18 05:09 05/26/18 05:09 05/26/18 05:09 General appearance: Present: no acute distress, well-nourished - EENT Eyes: Present: PERRL, EOM intact ENT: hearing intact, clear oral mucosa, dentition normal - Neck Neck: Present: supple, normal ROM - Respiratory Respiratory effort: normal Respiratory: bilateral: CTA - Cardiovascular Rhythm: regular Heart Sounds: Present: S1 & S2. Absent: gallop, rub - Extremities Extremities: no ischemia, No edema, Full ROM - Abdominal General gastrointestinal: soft, non-tender, non-distended, normal bowel sounds - Integumentary Integumentary: Present: clear, warm, dry - Neurologic Neurologic: CNII-XII intact, moves all extremities Results - Labs CBC & Chem 7: 05/25/18 05:45 05/25/18 05:45 Labs: Laboratory Last Values WBC 4.7 K/mm3 (4.5-11.0) 05/25/18 05:45 RBC 4.34 M/mm3 (3.65-5.03) 05/25/18 05:45 Hgb 11.8 gm/dl (11.8-15.2) 05/25/18 05:45 Hct 36.0 % (35.5-45.6) 05/25/18 05:45 MCV 83 fl (84-94) L 05/25/18 05:45 MCH 27 pg (28-32) L 05/25/18 05:45 MCHC 33 % (32-34) 05/25/18 05:45 RDW 17.1 % (13.2-15.2) H 05/25/18 05:45 Plt Count 324 K/mm3 (140-440) 05/25/18 05:45 [place] % (Auto) Coloring Machine Operator 05/20/18 11:54 Eos % (Auto) Coloring Machine Operator 05/20/18 11:54 Add Manual Diff Complete 05/25/18 05:45 Total Counted 100 05/25/18 05:45 Seg Neutrophils % Coloring Machine Operator 05/20/18 11:54 Seg Neuts % (Manual) 88.0 % (40.0-70.0) H 05/25/18 05:45 Band Neutrophils % 1.0 % 05/25/18 05:45 Lymphocytes % (Manual) 4.0 % (13.4-35.0) L 05/25/18 05:45 Reactive Lymphs % (Man) 0 % 05/25/18 05:45 Monocytes % (Manual) 7.0 % (0.0-7.3) 05/25/18 05:45 Eosinophils % (Manual) 0 % (0.0-4.3) 05/25/18 05:45 Basophils % (Manual) 0 % (0.0-1.8) 05/25/18 05:45 Metamyelocytes % 0 % 05/25/18 05:45 Myelocytes % 0 % 05/25/18 05:45 Promyelocytes % 0 % 05/25/18 05:45 Blast Cells % 0 % 05/25/18 05:45 Nucleated RBC % Not Reportable 05/25/18 05:45 Seg Neutrophils # Coloring Machine Operator 05/20/18 11:54 Seg Neutrophils # Man 4.1 K/mm3 (1.8-7.7) 05/25/18 05:45 Band Neutrophils # 0.0 K/mm3 05/25/18 05:45 Abs Lymphs (Manual) 340 cells/uL (850-3900) L 05/21/18 14:46 Lymphocytes # (Manual) 0.2 K/mm3 (1.2-5.4) L 05/25/18 05:45 Abs React Lymphs (Man) 0.0 K/mm3 05/25/18 05:45 Monocytes # (Manual) 0.3 K/mm3 (0.0-0.8) 05/25/18 05:45 Eosinophils # (Manual) 0.0 K/mm3 (0.0-0.4) 05/25/18 05:45 Basophils # (Manual) 0.0 K/mm3 (0.0-0.1) 05/25/18 05:45 Metamyelocytes # 0.0 K/mm3 05/25/18 05:45 Myelocytes # 0.0 K/mm3 05/25/18 05:45 Promyelocytes # 0.0 K/mm3 05/25/18 05:45 Blast Cells # 0.0 K/mm3 05/25/18 05:45 WBC Morphology Not Reportable 05/25/18 05:45 Hypersegmented Neuts Not Reportable 05/25/18 05:45 Hyposegmented Neuts Not Reportable 05/25/18 05:45 Hypogranular Neuts Not Reportable 05/25/18 05:45 Smudge Cells Not Reportable 05/25/18 05:45 Toxic Granulation Not Reportable 05/25/18 05:45 Toxic Vacuolation Not Reportable 05/25/18 05:45 Dohle Bodies Not Reportable 05/25/18 05:45 Pelger-Huet Anomaly Not Reportable 05/25/18 05:45 Arabella Rods Not Reportable 05/25/18 05:45 Platelet Estimate Consistent w auto 05/25/18 05:45 Clumped Platelets Not Reportable 05/25/18 05:45 Plt Clumps, EDTA Not Reportable 05/25/18 05:45 Large Platelets Not Reportable 05/25/18 05:45 Giant Platelets Not Reportable 05/25/18 05:45 Platelet Satelliting Not Reportable 05/25/18 05:45 Plt Morphology Comment Not Reportable 05/25/18 05:45 RBC Morphology Not Reportable 05/25/18 05:45 Dimorphic RBCs Not Reportable 05/25/18 05:45 Polychromasia Not Reportable 05/25/18 05:45 Hypochromasia Not Reportable 05/25/18 05:45 Poikilocytosis Not Reportable 05/25/18 05:45 Anisocytosis 1+ 05/25/18 05:45 Microcytosis Not Reportable 05/25/18 05:45 Macrocytosis Not Reportable 05/25/18 05:45 Spherocytes Not Reportable 05/25/18 05:45 Pappenheimer Bodies Not Reportable 05/25/18 05:45 Sickle Cells Not Reportable 05/25/18 05:45 Target Cells Not Reportable 05/25/18 05:45 Tear Drop Cells Not Reportable 05/25/18 05:45 Ovalocytes Not Reportable 05/25/18 05:45 Helmet Cells Not Reportable 05/25/18 05:45 [place] Bodies Not Reportable 05/25/18 05:45 [place] Rings Not Reportable 05/25/18 05:45 [place] Cells Not Reportable 05/25/18 05:45 Bite Cells Not Reportable 05/25/18 05:45 Crenated Cell Not Reportable 05/25/18 05:45 Elliptocytes Not Reportable 05/25/18 05:45 Acanthocytes (Spur) Not Reportable 05/25/18 05:45 Rouleaux Not Reportable 05/25/18 05:45 Hemoglobin C Crystals Not Reportable 05/25/18 05:45 Schistocytes Not Reportable 05/25/18 05:45 Malaria parasites Not Reportable 05/25/18 05:45 Yuriy Bodies Not Reportable 05/25/18 05:45 Hem Pathologist Commnt No 05/25/18 05:45 APTT 29.4 Sec. (24.2-36.6) 05/20/18 13:18 Sodium 138 mmol/L (137-145) 05/25/18 05:45 Potassium 4.7 mmol/L (3.6-5.0) 05/25/18 05:45 Chloride 97.8 mmol/L (98-107) L 05/25/18 05:45 Carbon Dioxide 26 mmol/L (22-30) 05/25/18 05:45 Anion Gap 19 mmol/L 05/25/18 05:45 BUN 16 mg/dL (9-20) 05/25/18 05:45 Creatinine 0.7 mg/dL (0.8-1.5) L 05/25/18 05:45 Estimated GFR > 60 ml/min 05/25/18 05:45 BUN/Creatinine Ratio 23 % 05/25/18 05:45 Glucose 117 mg/dL (75-100) H 05/25/18 05:45 Hemoglobin A1c 5.8 % (4-6) 05/20/18 18:56 Lactic Acid 1.10 mmol/L (0.7-2.0) 05/20/18 16:00 Calcium 9.4 mg/dL (8.4-10.2) 05/25/18 05:45 Magnesium 2.40 mg/dL (1.7-2.3) H 05/20/18 11:54 Total Bilirubin 0.20 mg/dL (0.1-1.2) 05/21/18 05:32 AST 28 units/L (5-40) 05/21/18 05:32 ALT 28 units/L (7-56) 05/21/18 05:32 Alkaline Phosphatase 179 units/L (35-129) H 05/21/18 05:32 Lactate Dehydrogenase 549 units/L (91-180) H 05/20/18 11:25 Total Protein 6.0 g/dL (6.3-8.2) L D 05/21/18 05:32 Albumin 2.9 g/dL (3.9-5) L 05/21/18 05:32 Albumin/Globulin Ratio 0.9 % 05/21/18 05:32 Urine Color Yellow (Yellow) 05/20/18 Unknown Urine Turbidity Clear (Clear) 05/20/18 Unknown Urine pH 6.0 (5.0-7.0) 05/20/18 Unknown Ur Specific [place] 1.027 (1.003-1.030) 05/20/18 Unknown Urine Protein 30 mg/dl mg/dL (Negative) 05/20/18 Unknown Urine Glucose (UA) Neg mg/dL (Negative) 05/20/18 Unknown Urine Ketones Neg mg/dL (Negative) 05/20/18 Unknown Urine Blood Neg (Negative) 05/20/18 Unknown Urine Nitrite Neg (Negative) 05/20/18 Unknown Urine Bilirubin Neg (Negative) 05/20/18 Unknown Urine Urobilinogen < 2.0 mg/dL (<2.0) 05/20/18 Unknown Ur Leukocyte Esterase Neg (Negative) 05/20/18 Unknown Urine WBC (Auto) 1.0 /HPF (0.0-6.0) 05/20/18 Unknown Urine RBC (Auto) 3.0 /HPF (0.0-6.0) 05/20/18 Unknown Urine Mucus Few /HPF 05/20/18 Unknown Lymph Enumerat CD4/CD8 0.04 (0.86-5.00) L 05/21/18 14:46 % CD3 Cells 30 % (57-85) L 05/21/18 14:46 Absolute CD3 Count 102 cells/uL (840-3060) L 05/21/18 14:46 % CD4 Cells 1 % (30-61) L 05/21/18 14:46 Absolute CD4 Count 4 cells/uL (490-1740) L 05/21/18 14:46 % CD8 Cells 25 % (12-42) 05/21/18 14:46 Absolute CD8 Count 88 cells/uL (180-1170) L 05/21/18 14:46 % CD19 Cells 11 % (6-29) 05/21/18 14:46 Absolute CD19 Count 38 cells/uL (110-660) L 05/21/18 14:46 Hepatitis A IgM Ab Non-reactive (NonReactive) 05/21/18 07:16 Hep Bs Antigen Non-reactive (Negative) 05/21/18 07:16 Hep B Core IgM Ab Non-reactive (NonReactive) 05/21/18 07:16 Hepatitis C Antibody Non-reactive (NonReactive) 05/21/18 07:16 HIV-1 RNA PCR copies/ml [id number] Copies/mL H 05/21/18 14:46 HIV-1 RNA (PCR) log 5.50 Log cps/mL H 05/21/18 14:46 Nutrition/Malnutrition Assess - Dietary Evaluation Nutrition/Malnutrition Findings: Nutrition Notes Start: 05/21/18 15:06 Freq: Status: Active Protocol: Document 05/23/18 16:22 RM (Rec: 05/23/18 16:29 RM [id number]) Nutrition Notes Initial or Follow up Reassessment Other Pertinent Diagnosis HIV, Pneu, Oral Candidiasis, Seizure disorder,Bipolar disorder,Cocaine abuse Current Diet [facility] soft w/Ensure BID Labs/Tests Reviewed Pertinent Medications Reviewed Height 5 ft 6 in Weight 62.8 kg [place] Body Weight (kg) 64.54 BMI 22.3 Subjective/Other Information Pt stated that he eats all of his meals and drinks the Ensure Enlive. Requested Ensure Enlive be increased to TID. Percent of energy/protein needs met: 100%/100% Burn Absent Trauma Absent #1 Nutrition Diagnosis Malnutrition Diagnosis Progress(for reassessment Continues documentation) Is patient on ventilator? No Is Patient Ambulatory and/or Out of Bed Yes REE-([facility]-ambulatory/OOB) [ 1879.475 NUTR.MSJOOB] Calculation Used for Recommendations [facility] Additional Notes Protein Needs: 75-94g (1.2-1. 5g/kg) Fluid Needs: 1 ml/kcal Nutrition Intervention Change Diet Order: Continue current Add Supplement/Snack (indicate name/kcal Ensure Enlive TID /protein ) Provides kCal: 1,050 Provides Protein (gm) 60 Goal #1 Continue to meet at least 75% of calorie and protein needs via PO and ONS intakes Goal #2 Wt gain/maintenance Anticipated Discharge Needs: [facility] soft diet Follow-Up By: 05/30/18 Additional Comments Follow for PO and ONS intakes
[2018-05-27] MEDS: BACTRIM DS PO SCH ×3 (06:12→21:46)
--- NOTE | 2018-05-27 10:04 | Progress Note ---
Assessment and Plan Cultures: Blood culture 05/20/2018 no growth today. Assessment: 48 y/o male with history of cocaine abuse, Gonorrhea and HIV diagnosed in 2018,; admitted on 05/20/2018 due to 3-week history of cough with yellowish sputum, SOB, AVILA, nasal congestion and difficulty swallowin) Sepsis: Resolved, Present on admission, manifested by tachycardia, hypotension, neutropenia. Etiology most likely AIDS +/- PJP pneumonia. 2) Presumed PJP pneumonia versus CAP with mild hypoxemia: O2 sat 93%, LDH 549, CXR showed early left sided infiltrate. Blood culture 05/20/2018 no growth today. 3) Severe oral candidiasis 4) Weight loss/AIDS cachexia 5) Neutropenia 6) HIV/AIDS: unknown CD4/VL, Diagnosed in 2018 non treated non compliance, patient [facility] but never went back because he did not like the way he was treated VL- 313,000/CD4 4 on 05/21/18 Recommendations: - follow-up blood cultures - follow ip sputum DFA - f/u Cryptococcal serum antigen and CMV DNA -f/u HIV geonotype - f/u AFB-blood culture - continue bactrim , switch to PO for PJP treatment - switch to fluconazole 400mg po q day -continue prednisone - If clinically better will d/c on bactrim DS 2 tab PO TID x 21 days, fluconazole 400 mg PO qday for 21 days. Ceftriaxone and azithromycin can be stopped and changed to amoxicillin 500 mg po TID for CAP x 5 days. Prednisone taper as follows 40mg po BID for three days, then 40 mg PO QD for five days, then 20mg PO for 11 days. - ID clinic f/u 06/06/18 to review labs and start ART. Radha Leonard [facility] M: [phone] O:[phone] Subjective Date of service: 05/27/18 Interval history: Patient seen and examined. Denied pain, SOB. No fevers. Discharge plan discussed, verbalized understanding. Objective - Exam Narrative Exam: Narrative exam: General appearance: Alert in NAD, agitated, cachetic Eyes: anicteric sclerae, moist conjunctivae; no lid-lag; PERRLA HENT: Atraumatic; oropharynx +significant thrush- improved, normal hard and soft palate. Normal external ears. Neck: Trachea midline; supple, no thyromegaly or lymphadenopathy Lungs: bilateral scattered crackles CV: RRR, no murmurs Abdomen: Soft, non-tender; no masses or hepatosplenomegaly Extremities: No peripheral edema or extremity lymphadenopathy Skin: Normal temperature, turgor and texture; no rash, ulcers or subcutaneous nodules Psych: Agitated, alert and oriented to person, place and time. Neuro: alert and oriented x 3. Moving all extermities - Constitutional Vitals: Vital Signs Temp Pulse Resp BP Pulse Ox 97.5 F L 77 16 117/83 95 05/27/18 05:56 05/27/18 05:56 05/27/18 05:56 05/27/18 05:56 05/27/18 05:56 Temperature -Last 24 Hours Temperature 97.5 F Temperature 98.5 F Temperature 99.2 F Temperature 97.8 F - Labs CBC & Chem 7: 05/25/18 05:45 05/25/18 05:45
--- NOTE | 2018-05-27 10:15 | Progress Note ---
Assessment and Plan Assessment and plan: Sepsis. Etiology secondary to AIDS, P.J. P pneumonia. Follow up blood and sputum cultures. Continue antibiotics per ID. ID discontinue Rocephin and azithromycin. Continue fluconazole and Bactrim by mouth. Acute hypoxemic respiratory failure. Etiology secondary to pneumonia. Continue O2 to maintain sats. Steroids have been switched to by mouth. Presumed P.J. P pneumonia versus Community acquired pneumonia. Continue IV antibiotics and follow serial chest x-ray. Follow AFB culture. HIV. ID following. Follow up CD4, HIV viral load and HIV genotype. Severe Oral candidiasis. Continue Diflucan. Neutropenia. AIDS cachexia/severe protein calorie malnutrition. Consulted dietitian. Disposition. The patient continues to clinically improve patient will discharge on bactrim DS 2 tab PO TID x 21 days, fluconazole 400 mg PO qday for 21 days. Ceftriaxone and azithromycin can be stopped and changed to amoxicillin 500 mg po TID for CAP x 5 days. Prednisone taper as follows 40mg po BID for three days, then 40 mg PO QD for five days, then 20mg PO for 11 days. Anticipate discharge in a.m. Social work to potentially arrange for new living situation. History Interval history: No new issues overnight. Hospitalist Physical - Constitutional Vitals: Temp Pulse Resp BP Pulse Ox 97.5 F L 77 16 117/83 95 05/27/18 05:56 05/27/18 05:56 05/27/18 05:56 05/27/18 05:56 05/27/18 05:56 General appearance: Present: no acute distress, well-nourished - EENT Eyes: Present: PERRL, EOM intact ENT: hearing intact, clear oral mucosa, dentition normal - Neck Neck: Present: supple, normal ROM - Respiratory Respiratory effort: normal Respiratory: bilateral: CTA - Cardiovascular Rhythm: regular Heart Sounds: Present: S1 & S2. Absent: gallop, rub - Extremities Extremities: no ischemia, No edema, Full ROM - Abdominal General gastrointestinal: soft, non-tender, non-distended, normal bowel sounds - Integumentary Integumentary: Present: clear, warm, dry - Neurologic Neurologic: CNII-XII intact, moves all extremities Results - Labs CBC & Chem 7: 05/25/18 05:45 05/25/18 05:45 Labs: Laboratory Last Values WBC 4.7 K/mm3 (4.5-11.0) 05/25/18 05:45 RBC 4.34 M/mm3 (3.65-5.03) 05/25/18 05:45 Hgb 11.8 gm/dl (11.8-15.2) 05/25/18 05:45 Hct 36.0 % (35.5-45.6) 05/25/18 05:45 MCV 83 fl (84-94) L 05/25/18 05:45 MCH 27 pg (28-32) L 05/25/18 05:45 MCHC 33 % (32-34) 05/25/18 05:45 RDW 17.1 % (13.2-15.2) H 05/25/18 05:45 Plt Count 324 K/mm3 (140-440) 05/25/18 05:45 [place] % (Auto) Fourdrinier Tender 05/20/18 11:54 Eos % (Auto) Fourdrinier Tender 05/20/18 11:54 Add Manual Diff Complete 05/25/18 05:45 Total Counted 100 05/25/18 05:45 Seg Neutrophils % Fourdrinier Tender 05/20/18 11:54 Seg Neuts % (Manual) 88.0 % (40.0-70.0) H 05/25/18 05:45 Band Neutrophils % 1.0 % 05/25/18 05:45 Lymphocytes % (Manual) 4.0 % (13.4-35.0) L 05/25/18 05:45 Reactive Lymphs % (Man) 0 % 05/25/18 05:45 Monocytes % (Manual) 7.0 % (0.0-7.3) 05/25/18 05:45 Eosinophils % (Manual) 0 % (0.0-4.3) 05/25/18 05:45 Basophils % (Manual) 0 % (0.0-1.8) 05/25/18 05:45 Metamyelocytes % 0 % 05/25/18 05:45 Myelocytes % 0 % 05/25/18 05:45 Promyelocytes % 0 % 05/25/18 05:45 Blast Cells % 0 % 05/25/18 05:45 Nucleated RBC % Not Reportable 05/25/18 05:45 Seg Neutrophils # Fourdrinier Tender 05/20/18 11:54 Seg Neutrophils # Man 4.1 K/mm3 (1.8-7.7) 05/25/18 05:45 Band Neutrophils # 0.0 K/mm3 05/25/18 05:45 Abs Lymphs (Manual) 340 cells/uL (850-3900) L 05/21/18 14:46 Lymphocytes # (Manual) 0.2 K/mm3 (1.2-5.4) L 05/25/18 05:45 Abs React Lymphs (Man) 0.0 K/mm3 05/25/18 05:45 Monocytes # (Manual) 0.3 K/mm3 (0.0-0.8) 05/25/18 05:45 Eosinophils # (Manual) 0.0 K/mm3 (0.0-0.4) 05/25/18 05:45 Basophils # (Manual) 0.0 K/mm3 (0.0-0.1) 05/25/18 05:45 Metamyelocytes # 0.0 K/mm3 05/25/18 05:45 Myelocytes # 0.0 K/mm3 05/25/18 05:45 Promyelocytes # 0.0 K/mm3 05/25/18 05:45 Blast Cells # 0.0 K/mm3 05/25/18 05:45 WBC Morphology Not Reportable 05/25/18 05:45 Hypersegmented Neuts Not Reportable 05/25/18 05:45 Hyposegmented Neuts Not Reportable 05/25/18 05:45 Hypogranular Neuts Not Reportable 05/25/18 05:45 Smudge Cells Not Reportable 05/25/18 05:45 Toxic Granulation Not Reportable 05/25/18 05:45 Toxic Vacuolation Not Reportable 05/25/18 05:45 Dohle Bodies Not Reportable 05/25/18 05:45 Pelger-Huet Anomaly Not Reportable 05/25/18 05:45 Arabella Rods Not Reportable 05/25/18 05:45 Platelet Estimate Consistent w auto 05/25/18 05:45 Clumped Platelets Not Reportable 05/25/18 05:45 Plt Clumps, EDTA Not Reportable 05/25/18 05:45 Large Platelets Not Reportable 05/25/18 05:45 Giant Platelets Not Reportable 05/25/18 05:45 Platelet Satelliting Not Reportable 05/25/18 05:45 Plt Morphology Comment Not Reportable 05/25/18 05:45 RBC Morphology Not Reportable 05/25/18 05:45 Dimorphic RBCs Not Reportable 05/25/18 05:45 Polychromasia Not Reportable 05/25/18 05:45 Hypochromasia Not Reportable 05/25/18 05:45 Poikilocytosis Not Reportable 05/25/18 05:45 Anisocytosis 1+ 05/25/18 05:45 Microcytosis Not Reportable 05/25/18 05:45 Macrocytosis Not Reportable 05/25/18 05:45 Spherocytes Not Reportable 05/25/18 05:45 Pappenheimer Bodies Not Reportable 05/25/18 05:45 Sickle Cells Not Reportable 05/25/18 05:45 Target Cells Not Reportable 05/25/18 05:45 Tear Drop Cells Not Reportable 05/25/18 05:45 Ovalocytes Not Reportable 05/25/18 05:45 Helmet Cells Not Reportable 05/25/18 05:45 Mendi[place] Bodies Not Reportable 05/25/18 05:45 [place] Rings Not Reportable 05/25/18 05:45 [place] Cells Not Reportable 05/25/18 05:45 Bite Cells Not Reportable 05/25/18 05:45 Crenated Cell Not Reportable 05/25/18 05:45 Elliptocytes Not Reportable 05/25/18 05:45 Acanthocytes (Spur) Not Reportable 05/25/18 05:45 Rouleaux Not Reportable 05/25/18 05:45 Hemoglobin C Crystals Not Reportable 05/25/18 05:45 Schistocytes Not Reportable 05/25/18 05:45 Malaria parasites Not Reportable 05/25/18 05:45 Yuriy Bodies Not Reportable 05/25/18 05:45 Hem Pathologist Commnt No 05/25/18 05:45 APTT 29.4 Sec. (24.2-36.6) 05/20/18 13:18 Sodium 138 mmol/L (137-145) 05/25/18 05:45 Potassium 4.7 mmol/L (3.6-5.0) 05/25/18 05:45 Chloride 97.8 mmol/L (98-107) L 05/25/18 05:45 Carbon Dioxide 26 mmol/L (22-30) 05/25/18 05:45 Anion Gap 19 mmol/L 05/25/18 05:45 BUN 16 mg/dL (9-20) 05/25/18 05:45 Creatinine 0.7 mg/dL (0.8-1.5) L 05/25/18 05:45 Estimated GFR > 60 ml/min 05/25/18 05:45 BUN/Creatinine Ratio 23 % 05/25/18 05:45 Glucose 117 mg/dL (75-100) H 05/25/18 05:45 Hemoglobin A1c 5.8 % (4-6) 05/20/18 18:56 Lactic Acid 1.10 mmol/L (0.7-2.0) 05/20/18 16:00 Calcium 9.4 mg/dL (8.4-10.2) 05/25/18 05:45 Magnesium 2.40 mg/dL (1.7-2.3) H 05/20/18 11:54 Total Bilirubin 0.20 mg/dL (0.1-1.2) 05/21/18 05:32 AST 28 units/L (5-40) 05/21/18 05:32 ALT 28 units/L (7-56) 05/21/18 05:32 Alkaline Phosphatase 179 units/L (35-129) H 05/21/18 05:32 Lactate Dehydrogenase 549 units/L (91-180) H 05/20/18 11:25 Total Protein 6.0 g/dL (6.3-8.2) L D 05/21/18 05:32 Albumin 2.9 g/dL (3.9-5) L 05/21/18 05:32 Albumin/Globulin Ratio 0.9 % 05/21/18 05:32 Urine Color Yellow (Yellow) 05/20/18 Unknown Urine Turbidity Clear (Clear) 05/20/18 Unknown Urine pH 6.0 (5.0-7.0) 05/20/18 Unknown Ur Specific [place] 1.027 (1.003-1.030) 05/20/18 Unknown Urine Protein 30 mg/dl mg/dL (Negative) 05/20/18 Unknown Urine Glucose (UA) Neg mg/dL (Negative) 05/20/18 Unknown Urine Ketones Neg mg/dL (Negative) 05/20/18 Unknown Urine Blood Neg (Negative) 05/20/18 Unknown Urine Nitrite Neg (Negative) 05/20/18 Unknown Urine Bilirubin Neg (Negative) 05/20/18 Unknown Urine Urobilinogen < 2.0 mg/dL (<2.0) 05/20/18 Unknown Ur Leukocyte Esterase Neg (Negative) 05/20/18 Unknown Urine WBC (Auto) 1.0 /HPF (0.0-6.0) 05/20/18 Unknown Urine RBC (Auto) 3.0 /HPF (0.0-6.0) 05/20/18 Unknown Urine Mucus Few /HPF 05/20/18 Unknown Lymph Enumerat CD4/CD8 0.04 (0.86-5.00) L 05/21/18 14:46 % CD3 Cells 30 % (57-85) L 05/21/18 14:46 Absolute CD3 Count 102 cells/uL (840-3060) L 05/21/18 14:46 % CD4 Cells 1 % (30-61) L 05/21/18 14:46 Absolute CD4 Count 4 cells/uL (490-1740) L 05/21/18 14:46 % CD8 Cells 25 % (12-42) 05/21/18 14:46 Absolute CD8 Count 88 cells/uL (180-1170) L 05/21/18 14:46 % CD19 Cells 11 % (6-29) 05/21/18 14:46 Absolute CD19 Count 38 cells/uL (110-660) L 05/21/18 14:46 Hepatitis A IgM Ab Non-reactive (NonReactive) 05/21/18 07:16 Hep Bs Antigen Non-reactive (Negative) 05/21/18 07:16 Hep B Core IgM Ab Non-reactive (NonReactive) 05/21/18 07:16 Hepatitis C Antibody Non-reactive (NonReactive) 05/21/18 07:16 HIV-1 RNA PCR copies/ml [id number] Copies/mL H 05/21/18 14:46 HIV-1 RNA (PCR) log 5.50 Log cps/mL H 05/21/18 14:46 Nutrition/Malnutrition Assess - Dietary Evaluation Nutrition/Malnutrition Findings: Nutrition Notes Start: 05/21/18 15:06 Freq: Status: Active Protocol: Document 05/23/18 16:22 RM (Rec: 05/23/18 16:29 RM [id number]) Nutrition Notes Initial or Follow up Reassessment Other Pertinent Diagnosis HIV, Pneu, Oral Candidiasis, Seizure disorder,Bipolar disorder,Cocaine abuse Current Diet [facility] soft w/Ensure BID Labs/Tests Reviewed Pertinent Medications Reviewed Height 5 ft 6 in Weight 62.8 kg [place] Body Weight (kg) 64.54 BMI 22.3 Subjective/Other Information Pt stated that he eats all of his meals and drinks the Ensure Enlive. Requested Ensure Enlive be increased to TID. Percent of energy/protein needs met: 100%/100% Burn Absent Trauma Absent #1 Nutrition Diagnosis Malnutrition Diagnosis Progress(for reassessment Continues documentation) Is patient on ventilator? No Is Patient Ambulatory and/or Out of Bed Yes REE-([facility]-ambulatory/OOB) [ 1879.475 NUTR.MSJOOB] Calculation Used for Recommendations [facility] Additional Notes Protein Needs: 75-94g (1.2-1. 5g/kg) Fluid Needs: 1 ml/kcal Nutrition Intervention Change Diet Order: Continue current Add Supplement/Snack (indicate name/kcal Ensure Enlive TID /protein ) Provides kCal: 1,050 Provides Protein (gm) 60 Goal #1 Continue to meet at least 75% of calorie and protein needs via PO and ONS intakes Goal #2 Wt gain/maintenance Anticipated Discharge Needs: [facility] soft diet Follow-Up By: 05/30/18 Additional Comments Follow for PO and ONS intakes
[2018-05-27] MEDS: DIFLUCAN PO SCH (10:37)
[2018-05-27] MEDS: DELTASONE PO SCH ×2 (10:37→21:48)
[2018-05-27] MEDS: SODIUM CHLORIDE FLUSH SYRINGE 10 ML IV PRN (10:37)
[2018-05-27] MEDS: KEPPRA PO SCH ×2 (10:37→21:46)
[2018-05-27] MEDS: LOVENOX SUB-Q SCH (10:38)
[2018-05-28] MEDS: BACTRIM DS PO SCH ×3 (07:21→22:33)
--- NOTE | 2018-05-28 09:15 | Progress Note ---
Assessment and Plan Cultures: Blood culture 05/20/2018 no growth today. Assessment: 48 y/o male with history of cocaine abuse, Gonorrhea and HIV diagnosed in 2018,; admitted on 05/20/2018 due to 3-week history of cough with yellowish sputum, SOB, AVILA, nasal congestion and difficulty swallowin) Sepsis: Resolved, Present on admission, manifested by tachycardia, hypotension, neutropenia. Etiology most likely AIDS +/- PJP pneumonia. 2) Presumed PJP pneumonia versus CAP with mild hypoxemia: O2 sat 93%, LDH 549, CXR showed early left sided infiltrate. Blood culture 05/20/2018 no growth today. 3) Severe oral candidiasis 4) Weight loss/AIDS cachexia 5) Neutropenia 6) HIV/AIDS: unknown CD4/VL, Diagnosed in 2018 non treated non compliance, patient [facility] but never went back because he did not like the way he was treated VL- 313,000/CD4 4 on 05/21/18 Recommendations: - follow-up blood cultures - follow ip sputum DFA - f/u Cryptococcal serum antigen and CMV DNA -f/u HIV geonotype - f/u AFB-blood culture - continue bactrim , switch to PO for PJP treatment - continue fluconazole 400mg po q day -continue prednisone - Anticipate discharge on bactrim DS 2 tab PO TID x 21 days, fluconazole 400 mg PO qday for 21 days. Ceftriaxone and azithromycin can be stopped and changed to amoxicillin 500 mg po TID for CAP x 5 days. Prednisone taper as follows 40mg po BID for three days, then 40 mg PO QD for five days, then 20mg PO for 11 days. - ID clinic f/u 06/06/18 to review labs and start ART. [facility] M: [phone] O:[phone] Subjective Date of service: 05/28/18 Interval history: Patient seen and examined. 1013 initiated , patient stated that he would ingest rat poison. Currently combative, screaming and yelling about wanting to leave. Sitter at door monitoring. Objective - Exam Narrative Exam: Narrative exam: General appearance: Alert in NAD, Combtive, cachetic Eyes: anicteric sclerae, moist conjunctivae; no lid-lag; PERRLA HENT: Atraumatic; oropharynx + thrush- improved. Neck: Trachea midline; supple, no thyromegaly or lymphadenopathy Lungs: unable to access CV: RRR, no murmurs Abdomen: unable to access Extremities: No peripheral edema or extremity lymphadenopathy Skin: Normal temperature, turgor and texture; no rash, ulcers or subcutaneous nodules Psych: Agitated, combative, 1013 initiated - Constitutional Vitals: Vital Signs Temp Pulse Resp BP Pulse Ox 99.0 F 93 H 20 139/104 98 05/28/18 06:21 05/28/18 06:21 05/28/18 06:21 05/28/18 06:21 05/28/18 06:21 Temperature -Last 24 Hours Temperature 99.0 F Temperature 98.0 F Temperature 98.5 F Temperature 97.8 F - Labs CBC & Chem 7: 05/25/18 05:45 05/25/18 05:45
--- NOTE | 2018-05-28 09:47 | Discharge Summary ---
Providers - Providers Date of Admission: 05/20/18 18:30 Date of discharge: 05/31/18 Attending physician: ACOSTA BLANCAS 05/20/18 18:31 Consult to Physician [CONS] Routine Comment: Consulting Provider: HERB DINERO Physician Instructions: Reason For Exam: HIV and possible PCP 05/21/18 06:30 Consult to Dietitian/Nutrition [CONS] Routine Physician Instructions: Reason For Exam: Reason for Consult: Pt needs oral supplement Primary care physician: DARRION PALM Hospitalization Condition: Stable Hospital course: Patient is a 48 y/o man with a history of cocaine abuse, seizure disorder, bipolar disorder, Gonorrhea and HIV (diagnosed in 2018 but not on medications due to noncompliance) who was admitted on 05/20/2018 due to 3-week history of cough with yellowish sputum, SOB, AVILA, nasal congestion, difficulty swallowing and weight loss 30 lbs in 3 months. He was seen by ID and abx recommendations were given. He was to be discharged but he was psychotic and expressed the idea of taking rat poison to end his life. So, I made him 1013 and consulted psych. He was evaluated by psych, Zyprexa was added. Patient refused to take at times. He was seen by psych and 1013 rescinded, will discharge home Sepsis pneumonia. Etiology secondary to AIDS, P.J. P pneumonia. Follow up blood and sputum cultures. Continue antibiotics per ID. ID discontinue Rocephin and azithromycin. Continue fluconazole and Bactrim by mouth. Acute hypoxemic respiratory failure, poa, resolved. Etiology secondary to pneumonia. Continue O2 to maintain sats. Steroids have been switched to by mouth. Presumed P.J. P pneumonia versus Community acquired pneumonia. Continue IV antibiotics and follow serial chest x-ray. Follow AFB culture. HIV/AIDS. ID following. 05/21/2018: absolute CD4 count of 4, HIV viral load of 313,000 and HIV genotype pending with ID. Severe Oral candidiasis. Continue Diflucan. Neutropenia. 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 Consulted Dietitian. Bipolar disorder with stated expression to end his life, was made a 1013 and seen by psych; 1013 rescinded, will discharge home ID final Recommendations: - follow-up blood cultures - follow ip sputum DFA - f/u Cryptococcal serum antigen and CMV DNA -f/u HIV geonotype - f/u AFB-blood culture - continue bactrim , switch to PO for PJP treatment - continue fluconazole 400mg po q day -continue prednisone - Anticipate discharge on bactrim DS 2 tab PO TID x 21 days, fluconazole 400 mg PO qday for 21 days. Ceftriaxone and azithromycin can be stopped and changed to amoxicillin 500 mg po TID for CAP x 5 days. Prednisone taper as follows 40mg po BID for three days, then 40 mg PO QD for five days, then 20mg PO for 11 days. - ID clinic f/u 06/06/18 to review labs and start ART. Disposition: DC- TO HOME OR SELFCARE Time spent for discharge: 32 minutes Core Measure Documentation - Palliative Care Palliative Care/ Comfort Measures: Not Applicable - Core Measures Any of the following diagnoses?: none - VTE Discharge Requirements Deep Vein Thrombosis/Pulmonary Embolism Present on Admission: No Has pt received <5 days of overlap therapy or INR<2.0: No Anticoagulant overlap therapy prescribed at discharge: No Contraindication No Overlap Therapy order at DC: Not Indicated Exam - Physical Exam Narrative exam: GEN: cachetic, NAD, Awake, Alert, Orientated HEENT: NCAT, EOMI, PERRL, OP Clear NECK: supple, no adenopathy, no thyromegaly, no JVD CVS/HEART: RRR, normal S1S2, pulses present bilaterally CHEST/LUNGS: Diminished bs bilateral, Symmetrical chest expansion, good air entry bilaterally GI/Abdomen: soft, NTND, good bowel sounds, no guarding or rebound /Bladder: no suprapubic tenderness, no CVA or paraspinal tenderness EXT/Skin: no c/c/e, no obvious rash MSK: FROM x 4, walking/gait normal Neuro: CN 2-12 grossly intact, no new focal deficits Psych: calm, better insight - Constitutional Vitals: Temp Pulse Resp BP Pulse Ox 99.0 F 93 H 20 139/104 98 05/28/18 06:21 05/28/18 06:21 05/28/18 06:21 05/28/18 06:21 05/28/18 06:21 Plan Activity: up only with assistance, fall precautions, other (no strenous activity) Diet: regular Follow up with: HERB DINERO MD [Staff Physician] - 7 Days PRIMARY CARE, [Referring] - 3-5 Days VIOLETA ALANIZ MD [Staff Physician] - 7 Days Prescriptions: OLANzapine [ZyPREXA] 5 mg PO QHS #30 tablet Sulfamethoxazole/Trimethoprim [Bactrim DS TAB] 2 each PO TID 21 Days tablet predniSONE [Deltasone] 1 dose PO DAILY 30 Days tablet Fluconazole [Diflucan TAB] 400 mg PO QDAY 21 Days tablet levETIRAcetam [Keppra TAB] 1,000 mg PO BID #60 tab
[2018-05-28] MEDS: DIFLUCAN PO SCH (10:00)
[2018-05-28] MEDS: LOVENOX SUB-Q SCH (10:00)
[2018-05-28] MEDS: KEPPRA PO SCH ×2 (10:00→22:33)
[2018-05-28] MEDS: DELTASONE PO SCH ×2 (10:00→22:34)
--- NOTE | 2018-05-28 14:06 | Progress Note ---
Assessment and Plan Assessment and plan: Patient is a 48 y/o man with a history of cocaine abuse, seizure disorder, bipolar disorder, Gonorrhea and HIV (diagnosed in 2018 but not on medications due to noncompliance) who was admitted on 05/20/2018 due to 3-week history of cough with yellowish sputum, SOB, AVILA, nasal congestion, difficulty swallowing and weight loss 30 lbs in 3 months. He was seen by ID and abx recommendations were given. He was to be discharged but he was psychotic and expressed the idea of taking rat poison to end his life. So, I made him 1013 and consulted psych. Sepsis pneumonia. Etiology secondary to AIDS, P.J. P pneumonia. Follow up blood and sputum cultures. Continue antibiotics per ID. ID discontinue Rocephin and azithromycin. Continue fluconazole and Bactrim by mouth. Acute hypoxemic respiratory failure, poa, resolved. Etiology secondary to pneumonia. Continue O2 to maintain sats. Steroids have been switched to by mouth. Presumed P.J. P pneumonia versus Community acquired pneumonia. Continue IV antibiotics and follow serial chest x-ray. Follow AFB culture. HIV/AIDS. ID following. Follow up CD4, HIV viral load and HIV genotype. Severe Oral candidiasis. Continue Diflucan. Neutropenia. 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 Consulted Dietitian. Disposition. Patient is medically stable and cleared to go to inpatient psych History Interval history: Patient was seen and examined. Follow-up on current diagnosis of HIV. Overnight uneventful. Patient denies any chest pain, shortness breath, nausea/vomiting or severe headaches. Imaging, nursing note, chart, labs and old chart reviewed. Discussed with patient. Patient said he wanted to "take rat poison to end my life." He said this twice but denies SI. He is hyper rastafari, speaking on tangents with auditory hallucinations. Hospitalist Physical - Physical exam Narrative exam: GEN: cachetic, NAD, Awake, Alert, Orientated HEENT: NCAT, EOMI, PERRL, OP Clear NECK: supple, no adenopathy, no thyromegaly, no JVD CVS/HEART: RRR, normal S1S2, pulses present bilaterally CHEST/LUNGS: Diminished bs bilateral, Symmetrical chest expansion, good air entry bilaterally GI/Abdomen: soft, NTND, good bowel sounds, no guarding or rebound /Bladder: no suprapubic tenderness, no CVA or paraspinal tenderness EXT/Skin: no c/c/e, no obvious rash MSK: FROM x 4, walking/gait normal Neuro: CN 2-12 grossly intact, no new focal deficits Psych: hyper rastafari, speaking on tangents with auditory hallucinations, not easily directed, poor insight and judgment - Constitutional Vitals: Temp Pulse Resp BP Pulse Ox 99.0 F 93 H 20 139/104 98 05/28/18 06:21 05/28/18 06:21 05/28/18 06:21 05/28/18 06:21 05/28/18 06:21 General appearance: Present: no acute distress, well-nourished Results - Labs CBC & Chem 7: 05/25/18 05:45 05/25/18 05:45 Labs: Laboratory Last Values WBC 4.7 K/mm3 (4.5-11.0) 05/25/18 05:45 RBC 4.34 M/mm3 (3.65-5.03) 05/25/18 05:45 Hgb 11.8 gm/dl (11.8-15.2) 05/25/18 05:45 Hct 36.0 % (35.5-45.6) 05/25/18 05:45 MCV 83 fl (84-94) L 05/25/18 05:45 MCH 27 pg (28-32) L 05/25/18 05:45 MCHC 33 % (32-34) 05/25/18 05:45 RDW 17.1 % (13.2-15.2) H 05/25/18 05:45 Plt Count 324 K/mm3 (140-440) 05/25/18 05:45 [place] % (Auto) News Videotape Editor 05/20/18 11:54 Eos % (Auto) News Videotape Editor 05/20/18 11:54 Add Manual Diff Complete 05/25/18 05:45 Total Counted 100 05/25/18 05:45 Seg Neutrophils % News Videotape Editor 05/20/18 11:54 Seg Neuts % (Manual) 88.0 % (40.0-70.0) H 05/25/18 05:45 Band Neutrophils % 1.0 % 05/25/18 05:45 Lymphocytes % (Manual) 4.0 % (13.4-35.0) L 05/25/18 05:45 Reactive Lymphs % (Man) 0 % 05/25/18 05:45 Monocytes % (Manual) 7.0 % (0.0-7.3) 05/25/18 05:45 Eosinophils % (Manual) 0 % (0.0-4.3) 05/25/18 05:45 Basophils % (Manual) 0 % (0.0-1.8) 05/25/18 05:45 Metamyelocytes % 0 % 05/25/18 05:45 Myelocytes % 0 % 05/25/18 05:45 Promyelocytes % 0 % 05/25/18 05:45 Blast Cells % 0 % 05/25/18 05:45 Nucleated RBC % Not Reportable 05/25/18 05:45 Seg Neutrophils # News Videotape Editor 05/20/18 11:54 Seg Neutrophils # Man 4.1 K/mm3 (1.8-7.7) 05/25/18 05:45 Band Neutrophils # 0.0 K/mm3 05/25/18 05:45 Abs Lymphs (Manual) 340 cells/uL (850-3900) L 05/21/18 14:46 Lymphocytes # (Manual) 0.2 K/mm3 (1.2-5.4) L 05/25/18 05:45 Abs React Lymphs (Man) 0.0 K/mm3 05/25/18 05:45 Monocytes # (Manual) 0.3 K/mm3 (0.0-0.8) 05/25/18 05:45 Eosinophils # (Manual) 0.0 K/mm3 (0.0-0.4) 05/25/18 05:45 Basophils # (Manual) 0.0 K/mm3 (0.0-0.1) 05/25/18 05:45 Metamyelocytes # 0.0 K/mm3 05/25/18 05:45 Myelocytes # 0.0 K/mm3 05/25/18 05:45 Promyelocytes # 0.0 K/mm3 05/25/18 05:45 Blast Cells # 0.0 K/mm3 05/25/18 05:45 WBC Morphology Not Reportable 05/25/18 05:45 Hypersegmented Neuts Not Reportable 05/25/18 05:45 Hyposegmented Neuts Not Reportable 05/25/18 05:45 Hypogranular Neuts Not Reportable 05/25/18 05:45 Smudge Cells Not Reportable 05/25/18 05:45 Toxic Granulation Not Reportable 05/25/18 05:45 Toxic Vacuolation Not Reportable 05/25/18 05:45 Dohle Bodies Not Reportable 05/25/18 05:45 Pelger-Huet Anomaly Not Reportable 05/25/18 05:45 Arabella Rods Not Reportable 05/25/18 05:45 Platelet Estimate Consistent w auto 05/25/18 05:45 Clumped Platelets Not Reportable 05/25/18 05:45 Plt Clumps, EDTA Not Reportable 05/25/18 05:45 Large Platelets Not Reportable 05/25/18 05:45 Giant Platelets Not Reportable 05/25/18 05:45 Platelet Satelliting Not Reportable 05/25/18 05:45 Plt Morphology Comment Not Reportable 05/25/18 05:45 RBC Morphology Not Reportable 05/25/18 05:45 Dimorphic RBCs Not Reportable 05/25/18 05:45 Polychromasia Not Reportable 05/25/18 05:45 Hypochromasia Not Reportable 05/25/18 05:45 Poikilocytosis Not Reportable 05/25/18 05:45 Anisocytosis 1+ 05/25/18 05:45 Microcytosis Not Reportable 05/25/18 05:45 Macrocytosis Not Reportable 05/25/18 05:45 Spherocytes Not Reportable 05/25/18 05:45 Pappenheimer Bodies Not Reportable 05/25/18 05:45 Sickle Cells Not Reportable 05/25/18 05:45 Target Cells Not Reportable 05/25/18 05:45 Tear Drop Cells Not Reportable 05/25/18 05:45 Ovalocytes Not Reportable 05/25/18 05:45 Helmet Cells Not Reportable 05/25/18 05:45 [place] Bodies Not Reportable 05/25/18 05:45 [place] Rings Not Reportable 05/25/18 05:45 Obed Cells Not Reportable 05/25/18 05:45 Bite Cells Not Reportable 05/25/18 05:45 Crenated Cell Not Reportable 05/25/18 05:45 Elliptocytes Not Reportable 05/25/18 05:45 Acanthocytes (Spur) Not Reportable 05/25/18 05:45 Rouleaux Not Reportable 05/25/18 05:45 Hemoglobin C Crystals Not Reportable 05/25/18 05:45 Schistocytes Not Reportable 05/25/18 05:45 Malaria parasites Not Reportable 05/25/18 05:45 Yuriy Bodies Not Reportable 05/25/18 05:45 Hem Pathologist Commnt No 05/25/18 05:45 APTT 29.4 Sec. (24.2-36.6) 05/20/18 13:18 Sodium 138 mmol/L (137-145) 05/25/18 05:45 Potassium 4.7 mmol/L (3.6-5.0) 05/25/18 05:45 Chloride 97.8 mmol/L (98-107) L 05/25/18 05:45 Carbon Dioxide 26 mmol/L (22-30) 05/25/18 05:45 Anion Gap 19 mmol/L 05/25/18 05:45 BUN 16 mg/dL (9-20) 05/25/18 05:45 Creatinine 0.7 mg/dL (0.8-1.5) L 05/25/18 05:45 Estimated GFR > 60 ml/min 05/25/18 05:45 BUN/Creatinine Ratio 23 % 05/25/18 05:45 Glucose 117 mg/dL (75-100) H 05/25/18 05:45 Hemoglobin A1c 5.8 % (4-6) 05/20/18 18:56 Lactic Acid 1.10 mmol/L (0.7-2.0) 05/20/18 16:00 Calcium 9.4 mg/dL (8.4-10.2) 05/25/18 05:45 Magnesium 2.40 mg/dL (1.7-2.3) H 05/20/18 11:54 Total Bilirubin 0.20 mg/dL (0.1-1.2) 05/21/18 05:32 AST 28 units/L (5-40) 05/21/18 05:32 ALT 28 units/L (7-56) 05/21/18 05:32 Alkaline Phosphatase 179 units/L (35-129) H 05/21/18 05:32 Lactate Dehydrogenase 549 units/L (91-180) H 05/20/18 11:25 Total Protein 6.0 g/dL (6.3-8.2) L D 05/21/18 05:32 Albumin 2.9 g/dL (3.9-5) L 05/21/18 05:32 Albumin/Globulin Ratio 0.9 % 05/21/18 05:32 Urine Color Yellow (Yellow) 05/20/18 Unknown Urine Turbidity Clear (Clear) 05/20/18 Unknown Urine pH 6.0 (5.0-7.0) 05/20/18 Unknown Ur Specific [place] 1.027 (1.003-1.030) 05/20/18 Unknown Urine Protein 30 mg/dl mg/dL (Negative) 05/20/18 Unknown Urine Glucose (UA) Neg mg/dL (Negative) 05/20/18 Unknown Urine Ketones Neg mg/dL (Negative) 05/20/18 Unknown Urine Blood Neg (Negative) 05/20/18 Unknown Urine Nitrite Neg (Negative) 05/20/18 Unknown Urine Bilirubin Neg (Negative) 05/20/18 Unknown Urine Urobilinogen < 2.0 mg/dL (<2.0) 05/20/18 Unknown Ur Leukocyte Esterase Neg (Negative) 05/20/18 Unknown Urine WBC (Auto) 1.0 /HPF (0.0-6.0) 05/20/18 Unknown Urine RBC (Auto) 3.0 /HPF (0.0-6.0) 05/20/18 Unknown Urine Mucus Few /HPF 05/20/18 Unknown Lymph Enumerat CD4/CD8 0.04 (0.86-5.00) L 05/21/18 14:46 % CD3 Cells 30 % (57-85) L 05/21/18 14:46 Absolute CD3 Count 102 cells/uL (840-3060) L 05/21/18 14:46 % CD4 Cells 1 % (30-61) L 05/21/18 14:46 Absolute CD4 Count 4 cells/uL (490-1740) L 05/21/18 14:46 % CD8 Cells 25 % (12-42) 05/21/18 14:46 Absolute CD8 Count 88 cells/uL (180-1170) L 05/21/18 14:46 % CD19 Cells 11 % (6-29) 05/21/18 14:46 Absolute CD19 Count 38 cells/uL (110-660) L 05/21/18 14:46 Hepatitis A IgM Ab Non-reactive (NonReactive) 05/21/18 07:16 Hep Bs Antigen Non-reactive (Negative) 05/21/18 07:16 Hep B Core IgM Ab Non-reactive (NonReactive) 05/21/18 07:16 Hepatitis C Antibody Non-reactive (NonReactive) 05/21/18 07:16 HIV-1 RNA PCR copies/ml 833021 Copies/mL H 05/21/18 14:46 HIV-1 RNA (PCR) log 5.50 Log cps/mL H 05/21/18 14:46 Nutrition/Malnutrition Assess - Dietary Evaluation Nutrition/Malnutrition Findings: Nutrition Notes Start: 05/21/18 15:06 Freq: Status: Active Protocol: Document 05/23/18 16:22 RM (Rec: 05/23/18 16:29 RM [id number]) Nutrition Notes Initial or Follow up Reassessment Other Pertinent Diagnosis HIV, Pneu, Oral Candidiasis, Seizure disorder,Bipolar disorder,Cocaine abuse Current Diet Mech soft w/Ensure BID Labs/Tests Reviewed Pertinent Medications Reviewed Height 5 ft 6 in Weight 62.8 kg [place] Body Weight (kg) 64.54 BMI 22.3 Subjective/Other Information Pt stated that he eats all of his meals and drinks the Ensure Enlive. Requested Ensure Enlive be increased to TID. Percent of energy/protein needs met: 100%/100% Burn Absent Trauma Absent #1 Nutrition Diagnosis Malnutrition Diagnosis Progress(for reassessment Continues documentation) Is patient on ventilator? No Is Patient Ambulatory and/or Out of Bed Yes REE-([facility]-ambulatory/OOB) [ 1879.475 [id number]] Calculation Used for Recommendations [facility] Additional Notes Protein Needs: 75-94g (1.2-1. 5g/kg) Fluid Needs: 1 ml/kcal Nutrition Intervention Change Diet Order: Continue current Add Supplement/Snack (indicate name/kcal Ensure Enlive TID /protein ) Provides kCal: 1,050 Provides Protein (gm) 60 Goal #1 Continue to meet at least 75% of calorie and protein needs via PO and ONS intakes Goal #2 Wt gain/maintenance Anticipated Discharge Needs: Mech soft diet Follow-Up By: 05/30/18 Additional Comments Follow for PO and ONS intakes
[2018-05-29] MEDS: BACTRIM DS PO SCH ×3 (05:43→22:16)
[2018-05-29] MEDS: LOVENOX SUB-Q SCH (10:04)
[2018-05-29] MEDS: DIFLUCAN PO SCH (10:25)
[2018-05-29] MEDS: DELTASONE PO SCH ×2 (10:25→22:16)
[2018-05-29] MEDS: KEPPRA PO SCH ×2 (10:25→22:16)
--- NOTE | 2018-05-29 10:34 | Progress Note ---
Assessment and Plan Cultures: Blood culture 05/20/2018 no growth today. Assessment: 48 y/o male with history of cocaine abuse, Gonorrhea and HIV diagnosed in 2018,; admitted on 05/20/2018 due to 3-week history of cough with yellowish sputum, SOB, AVILA, nasal congestion and difficulty swallowin) Sepsis: Resolved, Present on admission, manifested by tachycardia, hypotension, neutropenia. Etiology most likely AIDS +/- PJP pneumonia. 2) Presumed PJP pneumonia versus CAP with mild hypoxemia: O2 sat 93%, LDH 549, CXR showed early left sided infiltrate. Blood culture 05/20/2018 no growth today. 3) Severe oral candidiasis 4) Weight loss/AIDS cachexia 5) Neutropenia 6) HIV/AIDS: unknown CD4/VL, Diagnosed in 2018 non treated non compliance, patient [facility] but never went back because he did not like the way he was treated VL- 313,000/CD4 4 on 05/21/18 Recommendations: - follow-up blood cultures - follow ip sputum DFA - f/u Cryptococcal serum antigen and CMV DNA -f/u HIV geonotype - f/u AFB-blood culture - continue bactrim , switch to PO for PJP treatment - continue fluconazole 400mg po q day -continue prednisone - Anticipate discharge on bactrim DS 2 tab PO TID x 21 days, fluconazole 400 mg PO qday for 21 days. Ceftriaxone and azithromycin can be stopped and changed to amoxicillin 500 mg po TID for CAP x 5 days. Prednisone taper as follows 40mg po BID for three days, then 40 mg PO QD for five days, then 20mg PO for 11 days. - ID clinic f/u 06/06/18 to review labs and start ART. - Currently on 101- awaiting discharge to inpatient psych [facility] M: [phone] O:[phone] Subjective Date of service: 05/29/18 Interval history: Patient seen and examined. 1013 initiated . Continued agitation regarding having to stay at the hospital. Unclear though process. Objective - Exam Narrative Exam: Narrative exam: General appearance: Alert in NAD, agitated cachetic Eyes: anicteric sclerae, moist conjunctivae; no lid-lag; PERRLA HENT: Atraumatic; oropharynx + thrush- improved. Neck: Trachea midline; supple, no thyromegaly or lymphadenopathy Lungs: unable to access CV: RRR, no murmurs Abdomen: unable to access Extremities: No peripheral edema or extremity lymphadenopathy Skin: Normal temperature, turgor and texture; no rash, ulcers or subcutaneous nodules Psych: Agitated, 1013 continuing - Constitutional Vitals: Vital Signs Temp Pulse Resp BP Pulse Ox 98.0 F 98 H 17 119/88 94 05/28/18 23:15 05/28/18 23:15 05/28/18 23:15 05/28/18 23:15 05/28/18 23:15 Temperature -Last 24 Hours Temperature 98.0 F - Labs CBC & Chem 7: 05/25/18 05:45 05/25/18 05:45
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
--- NOTE | 2018-05-29 16:45 | Progress Note ---
Assessment and Plan Assessment and plan: Patient is a 48 y/o man with a history of cocaine abuse, seizure disorder, bipolar disorder, Gonorrhea and HIV (diagnosed in 2018 but not on medications due to noncompliance) who was admitted on 05/20/2018 due to 3-week history of cough with yellowish sputum, SOB, AVILA, nasal congestion, difficulty swallowing and weight loss 30 lbs in 3 months. He was seen by ID and abx recommendations were given. He was to be discharged but he was psychotic and expressed the idea of taking rat poison to end his life. So, I made him 1013 and consulted psych. Sepsis pneumonia. Etiology secondary to AIDS, P.J. P pneumonia. Follow up blood and sputum cultures. Continue antibiotics per ID. ID discontinue Rocephin and azithromycin. Continue fluconazole and Bactrim by mouth. Acute hypoxemic respiratory failure, poa, resolved. Etiology secondary to pneumonia. Continue O2 to maintain sats. Steroids have been switched to by mouth. Presumed P.J. P pneumonia versus Community acquired pneumonia. Continue IV antibiotics and follow serial chest x-ray. Follow AFB culture. HIV/AIDS. ID following. Follow up CD4, HIV viral load and HIV genotype. Severe Oral candidiasis. Continue Diflucan. Neutropenia. 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 Consulted Dietitian. Disposition per psych. Patient is medically stable and cleared to go to inpatient psych Patient denies any SI or saying he would take rat poisoning to end his life. History Interval history: Patient was seen and examined. Follow-up on current diagnosis of HIV. Overnight uneventful. Patient denies any chest pain, shortness breath, nausea/vomiting or severe headaches. Imaging, nursing note, chart, labs and old chart reviewed. Discussed with patient. Patient said he wanted to "take rat poison to end my life." He said this twice but denies SI. He is hyper evangelical, speaking on tangents with auditory hallucinations. Hospitalist Physical - Physical exam Narrative exam: GEN: cachetic, NAD, Awake, Alert, Orientated HEENT: NCAT, EOMI, PERRL, OP Clear NECK: supple, no adenopathy, no thyromegaly, no JVD CVS/HEART: RRR, normal S1S2, pulses present bilaterally CHEST/LUNGS: Diminished bs bilateral, Symmetrical chest expansion, good air entry bilaterally GI/Abdomen: soft, NTND, good bowel sounds, no guarding or rebound /Bladder: no suprapubic tenderness, no CVA or paraspinal tenderness EXT/Skin: no c/c/e, no obvious rash MSK: FROM x 4, walking/gait normal Neuro: CN 2-12 grossly intact, no new focal deficits Psych: hyper evangelical, speaking on tangents with auditory hallucinations, not easily directed, poor insight and judgment - Constitutional Vitals: Temp Pulse Resp BP Pulse Ox 98.0 F 98 H 17 119/88 94 05/28/18 23:15 05/28/18 23:15 05/28/18 23:15 05/28/18 23:15 05/28/18 23:15 General appearance: Present: no acute distress, well-nourished Results - Labs CBC & Chem 7: 05/25/18 05:45 05/25/18 05:45 Labs: Laboratory Last Values WBC 4.7 K/mm3 (4.5-11.0) 05/25/18 05:45 RBC 4.34 M/mm3 (3.65-5.03) 05/25/18 05:45 Hgb 11.8 gm/dl (11.8-15.2) 05/25/18 05:45 Hct 36.0 % (35.5-45.6) 05/25/18 05:45 MCV 83 fl (84-94) L 05/25/18 05:45 MCH 27 pg (28-32) L 05/25/18 05:45 MCHC 33 % (32-34) 05/25/18 05:45 RDW 17.1 % (13.2-15.2) H 05/25/18 05:45 Plt Count 324 K/mm3 (140-440) 05/25/18 05:45 Gregg % (Auto) Sales Appointment Coordinator 05/20/18 11:54 Eos % (Auto) Sales Appointment Coordinator 05/20/18 11:54 Add Manual Diff Complete 05/25/18 05:45 Total Counted 100 05/25/18 05:45 Seg Neutrophils % Sales Appointment Coordinator 05/20/18 11:54 Seg Neuts % (Manual) 88.0 % (40.0-70.0) H 05/25/18 05:45 Band Neutrophils % 1.0 % 05/25/18 05:45 Lymphocytes % (Manual) 4.0 % (13.4-35.0) L 05/25/18 05:45 Reactive Lymphs % (Man) 0 % 05/25/18 05:45 Monocytes % (Manual) 7.0 % (0.0-7.3) 05/25/18 05:45 Eosinophils % (Manual) 0 % (0.0-4.3) 05/25/18 05:45 Basophils % (Manual) 0 % (0.0-1.8) 05/25/18 05:45 Metamyelocytes % 0 % 05/25/18 05:45 Myelocytes % 0 % 05/25/18 05:45 Promyelocytes % 0 % 05/25/18 05:45 Blast Cells % 0 % 05/25/18 05:45 Nucleated RBC % Not Reportable 05/25/18 05:45 Seg Neutrophils # Sales Appointment Coordinator 05/20/18 11:54 Seg Neutrophils # Man 4.1 K/mm3 (1.8-7.7) 05/25/18 05:45 Band Neutrophils # 0.0 K/mm3 05/25/18 05:45 Abs Lymphs (Manual) 340 cells/uL (850-3900) L 05/21/18 14:46 Lymphocytes # (Manual) 0.2 K/mm3 (1.2-5.4) L 05/25/18 05:45 Abs React Lymphs (Man) 0.0 K/mm3 05/25/18 05:45 Monocytes # (Manual) 0.3 K/mm3 (0.0-0.8) 05/25/18 05:45 Eosinophils # (Manual) 0.0 K/mm3 (0.0-0.4) 05/25/18 05:45 Basophils # (Manual) 0.0 K/mm3 (0.0-0.1) 05/25/18 05:45 Metamyelocytes # 0.0 K/mm3 05/25/18 05:45 Myelocytes # 0.0 K/mm3 05/25/18 05:45 Promyelocytes # 0.0 K/mm3 05/25/18 05:45 Blast Cells # 0.0 K/mm3 05/25/18 05:45 WBC Morphology Not Reportable 05/25/18 05:45 Hypersegmented Neuts Not Reportable 05/25/18 05:45 Hyposegmented Neuts Not Reportable 05/25/18 05:45 Hypogranular Neuts Not Reportable 05/25/18 05:45 Smudge Cells Not Reportable 05/25/18 05:45 Toxic Granulation Not Reportable 05/25/18 05:45 Toxic Vacuolation Not Reportable 05/25/18 05:45 Dohle Bodies Not Reportable 05/25/18 05:45 Pelger-Huet Anomaly Not Reportable 05/25/18 05:45 Arabella Rods Not Reportable 05/25/18 05:45 Platelet Estimate Consistent w auto 05/25/18 05:45 Clumped Platelets Not Reportable 05/25/18 05:45 Plt Clumps, EDTA Not Reportable 05/25/18 05:45 Large Platelets Not Reportable 05/25/18 05:45 Giant Platelets Not Reportable 05/25/18 05:45 Platelet Satelliting Not Reportable 05/25/18 05:45 Plt Morphology Comment Not Reportable 05/25/18 05:45 RBC Morphology Not Reportable 05/25/18 05:45 Dimorphic RBCs Not Reportable 05/25/18 05:45 Polychromasia Not Reportable 05/25/18 05:45 Hypochromasia Not Reportable 05/25/18 05:45 Poikilocytosis Not Reportable 05/25/18 05:45 Anisocytosis 1+ 05/25/18 05:45 Microcytosis Not Reportable 05/25/18 05:45 Macrocytosis Not Reportable 05/25/18 05:45 Spherocytes Not Reportable 05/25/18 05:45 Pappenheimer Bodies Not Reportable 05/25/18 05:45 Sickle Cells Not Reportable 05/25/18 05:45 Target Cells Not Reportable 05/25/18 05:45 Tear Drop Cells Not Reportable 05/25/18 05:45 Ovalocytes Not Reportable 05/25/18 05:45 Helmet Cells Not Reportable 05/25/18 05:45 Mendiola-Bel-Nor Bodies Not Reportable 05/25/18 05:45 [place] Rings Not Reportable 05/25/18 05:45 Obed Cells Not Reportable 05/25/18 05:45 Bite Cells Not Reportable 05/25/18 05:45 Crenated Cell Not Reportable 05/25/18 05:45 Elliptocytes Not Reportable 05/25/18 05:45 Acanthocytes (Spur) Not Reportable 05/25/18 05:45 Rouleaux Not Reportable 05/25/18 05:45 Hemoglobin C Crystals Not Reportable 05/25/18 05:45 Schistocytes Not Reportable 05/25/18 05:45 Malaria parasites Not Reportable 05/25/18 05:45 Yuriy Bodies Not Reportable 05/25/18 05:45 Hem Pathologist Commnt No 05/25/18 05:45 APTT 29.4 Sec. (24.2-36.6) 05/20/18 13:18 Sodium 138 mmol/L (137-145) 05/25/18 05:45 Potassium 4.7 mmol/L (3.6-5.0) 05/25/18 05:45 Chloride 97.8 mmol/L (98-107) L 05/25/18 05:45 Carbon Dioxide 26 mmol/L (22-30) 05/25/18 05:45 Anion Gap 19 mmol/L 05/25/18 05:45 BUN 16 mg/dL (9-20) 05/25/18 05:45 Creatinine 0.7 mg/dL (0.8-1.5) L 05/25/18 05:45 Estimated GFR > 60 ml/min 05/25/18 05:45 BUN/Creatinine Ratio 23 % 05/25/18 05:45 Glucose 117 mg/dL (75-100) H 05/25/18 05:45 Hemoglobin A1c 5.8 % (4-6) 05/20/18 18:56 Lactic Acid 1.10 mmol/L (0.7-2.0) 05/20/18 16:00 Calcium 9.4 mg/dL (8.4-10.2) 05/25/18 05:45 Magnesium 2.40 mg/dL (1.7-2.3) H 05/20/18 11:54 Total Bilirubin 0.20 mg/dL (0.1-1.2) 05/21/18 05:32 AST 28 units/L (5-40) 05/21/18 05:32 ALT 28 units/L (7-56) 05/21/18 05:32 Alkaline Phosphatase 179 units/L (35-129) H 05/21/18 05:32 Lactate Dehydrogenase 549 units/L (91-180) H 05/20/18 11:25 Total Protein 6.0 g/dL (6.3-8.2) L D 05/21/18 05:32 Albumin 2.9 g/dL (3.9-5) L 05/21/18 05:32 Albumin/Globulin Ratio 0.9 % 05/21/18 05:32 Urine Color Yellow (Yellow) 05/20/18 Unknown Urine Turbidity Clear (Clear) 05/20/18 Unknown Urine pH 6.0 (5.0-7.0) 05/20/18 Unknown Ur Specific [place] 1.027 (1.003-1.030) 05/20/18 Unknown Urine Protein 30 mg/dl mg/dL (Negative) 05/20/18 Unknown Urine Glucose (UA) Neg mg/dL (Negative) 05/20/18 Unknown Urine Ketones Neg mg/dL (Negative) 05/20/18 Unknown Urine Blood Neg (Negative) 05/20/18 Unknown Urine Nitrite Neg (Negative) 05/20/18 Unknown Urine Bilirubin Neg (Negative) 05/20/18 Unknown Urine Urobilinogen < 2.0 mg/dL (<2.0) 05/20/18 Unknown Ur Leukocyte Esterase Neg (Negative) 05/20/18 Unknown Urine WBC (Auto) 1.0 /HPF (0.0-6.0) 05/20/18 Unknown Urine RBC (Auto) 3.0 /HPF (0.0-6.0) 05/20/18 Unknown Urine Mucus Few /HPF 05/20/18 Unknown Lymph Enumerat CD4/CD8 0.04 (0.86-5.00) L 05/21/18 14:46 % CD3 Cells 30 % (57-85) L 05/21/18 14:46 Absolute CD3 Count 102 cells/uL (840-3060) L 05/21/18 14:46 % CD4 Cells 1 % (30-61) L 05/21/18 14:46 Absolute CD4 Count 4 cells/uL (490-1740) L 05/21/18 14:46 % CD8 Cells 25 % (12-42) 05/21/18 14:46 Absolute CD8 Count 88 cells/uL (180-1170) L 05/21/18 14:46 % CD19 Cells 11 % (6-29) 05/21/18 14:46 Absolute CD19 Count 38 cells/uL (110-660) L 05/21/18 14:46 Hepatitis A IgM Ab Non-reactive (NonReactive) 05/21/18 07:16 Hep Bs Antigen Non-reactive (Negative) 05/21/18 07:16 Hep B Core IgM Ab Non-reactive (NonReactive) 05/21/18 07:16 Hepatitis C Antibody Non-reactive (NonReactive) 05/21/18 07:16 HIV-1 RNA PCR copies/ml [id number] Copies/mL H 05/21/18 14:46 HIV-1 RNA (PCR) log 5.50 Log cps/mL H 05/21/18 14:46 Nutrition/Malnutrition Assess - Dietary Evaluation Nutrition/Malnutrition Findings: Nutrition Notes Start: 05/21/18 15:06 Freq: Status: Active Protocol: Document 05/23/18 16:22 RM (Rec: 05/23/18 16:29 RM [id number]) Nutrition Notes Initial or Follow up Reassessment Other Pertinent Diagnosis HIV, Pneu, Oral Candidiasis, Seizure disorder,Bipolar disorder,Cocaine abuse Current Diet Mec soft w/Ensure BID Labs/Tests Reviewed Pertinent Medications Reviewed Height 5 ft 6 in Weight 62.8 kg [place] Body Weight (kg) 64.54 BMI 22.3 Subjective/Other Information Pt stated that he eats all of his meals and drinks the Ensure Enlive. Requested Ensure Enlive be increased to TID. Percent of energy/protein needs met: 100%/100% Burn Absent Trauma Absent #1 Nutrition Diagnosis Malnutrition Diagnosis Progress(for reassessment Continues documentation) Is patient on ventilator? No Is Patient Ambulatory and/or Out of Bed Yes REE-([facility]-ambulatory/OOB) [ [id number] [id number]] Calculation Used for Recommendations [facility] Additional Notes Protein Needs: 75-94g (1.2-1. 5g/kg) Fluid Needs: 1 ml/kcal Nutrition Intervention Change Diet Order: Continue current Add Supplement/Snack (indicate name/kcal Ensure Enlive TID /protein ) Provides kCal: 1,050 Provides Protein (gm) 60 Goal #1 Continue to meet at least 75% of calorie and protein needs via PO and ONS intakes Goal #2 Wt gain/maintenance Anticipated Discharge Needs: Mech soft diet Follow-Up By: 05/30/18 Additional Comments Follow for PO and ONS intakes
[2018-05-30] MEDS: BACTRIM DS PO SCH ×3 (05:55→22:33)
--- NOTE | 2018-05-30 10:29 | Progress Note ---
Assessment and Plan Cultures: Blood culture 05/20/2018 no growth today. Assessment: 48 y/o male with history of cocaine abuse, Gonorrhea and HIV diagnosed in 2018,; admitted on 05/20/2018 due to 3-week history of cough with yellowish sputum, SOB, AVILA, nasal congestion and difficulty swallowin) Sepsis: Resolved, Present on admission, manifested by tachycardia, hypotension, neutropenia. Etiology most likely AIDS +/- PJP pneumonia. 2) Presumed PJP pneumonia versus CAP with mild hypoxemia: O2 sat 93%, LDH 549, CXR showed early left sided infiltrate. Blood culture 05/20/2018 no growth today. 3) Severe oral candidiasis 4) Weight loss/AIDS cachexia 5) Neutropenia 6) HIV/AIDS: unknown CD4/VL, Diagnosed in 2018 non treated non compliance, patient was [facility] but never went back because he did not like the way he was treated VL- 313,000/CD4 4 on 05/21/18 Recommendations: - f/u Cryptococcal serum antigen and CMV DNA -f/u HIV geonotype -- continue bactrim PO - continue fluconazole 400mg po q day -continue prednisone - Anticipate discharge on bactrim DS 2 tab PO TID x 21 days, fluconazole 400 mg PO qday for 21 days. Prednisone taper as follows 40mg po BID for three days, then 40 mg PO QD for five days, then 20mg PO for 11 days. - ID clinic f/u 06/06/18 to review labs and start ART. - Currently on 1013- awaiting discharge to inpatient psych -remains stable for discharge from ID standpoint [facility] M: [phone] O:[phone] Subjective Date of service: 05/30/18 Interval history: Patient seen and examined. 1013 initiated . Continued agitation regarding having to stay at the hospital. Unclear thought process. Objective - Exam Narrative Exam: Narrative exam: General appearance: Alert in NAD, agitated cachetic Eyes: anicteric sclerae, moist conjunctivae; no lid-lag; PERRLA HENT: Atraumatic; oropharynx + thrush- improved. Neck: Trachea midline; supple, no thyromegaly or lymphadenopathy Lungs: unable to access CV: RRR, no murmurs Abdomen: unable to access Extremities: No peripheral edema or extremity lymphadenopathy Skin: Normal temperature, turgor and texture; no rash, ulcers or subcutaneous nodules Psych: Agitated, 1013 continuing - Constitutional Vitals: Vital Signs Temp Pulse Resp BP Pulse Ox 98.0 F 98 H 17 119/88 94 05/28/18 23:15 05/28/18 23:15 05/28/18 23:15 05/28/18 23:15 05/28/18 23:15 - Labs CBC & Chem 7: 05/25/18 05:45 05/25/18 05:45
--- NOTE | 2018-05-30 10:34 | Progress Note ---
Subjective - Reason for Consult Consult date: 05/30/18 Reason for consult: Psychiatry Follow-up - Chief Complaint Chief complaint: "I didn't say anything" 48 year old male that presents to the hospital with chief complaint of cough, congestion and difficulty swallowing. Psychiatry was consulted after patient expressed the idea of taking rat poison to end his life. Today the patient is hyper verbal during the assessment. He is adamant that he didn't say he would wallow rat poison. Throughout the interview, the patient was not lucid and somewhat disorganized with loose associations. He denies SI/HI's and AVH's. The patient refused Zyorexa last night. Mental Status Exam - Vital signs Last Vital Signs Temp 98.0 F 05/28/18 23:15 Pulse 98 H 05/28/18 23:15 Resp 17 05/28/18 23:15 BP 119/88 05/28/18 23:15 Pulse Ox 94 05/28/18 23:15 - Exam Narrative exam: MSE: Appearance: anxious Behavior: poor eye contact Speech: rapid rate and tone, hyper verbal Mood: "well" Affect: labile Thought Process: somewhat disorganized, loose associations Thought Content: denies SI/HI's and AVH's Motor Activity: sitting up in the bed Cognition: A/O x3 Insight: poor Judgment: variable Assessment and Plan Impression: Unspecified Mood DO with psy features. Today the patient is hyper verbal during the assessment. The patient could be manic. Recommendation/Plan: Continue 1013 and Zyprexa 5 mg PO HS for mood/psychosis. Discussed possible metabolic side effects of Zyprexa. with the patient. . Dispo: The patient was referred to inpatient psy services. Will staff with Dr Winter.
[2018-05-30] MEDS: DIFLUCAN PO SCH (10:46)
[2018-05-30] MEDS: DELTASONE PO SCH ×2 (10:46→22:33)
[2018-05-30] MEDS: KEPPRA PO SCH ×2 (10:46→22:33)
[2018-05-30] MEDS: LOVENOX SUB-Q SCH (10:47)
--- NOTE | 2018-05-30 16:48 | Progress Note ---
Assessment and Plan Assessment and plan: Patient is a 48 y/o man with a history of cocaine abuse, seizure disorder, bipolar disorder, Gonorrhea and HIV (diagnosed in 2018 but not on medications due to noncompliance) who was admitted on 05/20/2018 due to 3-week history of cough with yellowish sputum, SOB, AVILA, nasal congestion, difficulty swallowing and weight loss 30 lbs in 3 months. He was seen by ID and abx recommendations were given. He was to be discharged but he was psychotic and expressed the idea of taking rat poison to end his life. So, I made him 1013 and consulted psych. Sepsis pneumonia. Etiology secondary to AIDS, P.J. P pneumonia. Follow up blood and sputum cultures. Continue antibiotics per ID. ID discontinue Rocephin and azithromycin. Continue fluconazole and Bactrim by mouth. Acute hypoxemic respiratory failure, poa, resolved. Etiology secondary to pneumonia. Continue O2 to maintain sats. Steroids have been switched to by mouth. Presumed P.J. P pneumonia versus Community acquired pneumonia. Continue IV antibiotics and follow serial chest x-ray. Follow AFB culture. HIV/AIDS. ID following. Follow up CD4, HIV viral load and HIV genotype. Severe Oral candidiasis. Continue Diflucan. Neutropenia. 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 Consulted Dietitian. Disposition per psych. Patient is medically stable and cleared to go to inpatient psych Patient denies any SI or saying he would take rat poisoning to end his life. Patient refusing medications and still mentally unstable History Interval history: Patient was seen and examined. Follow-up on current diagnosis of HIV. Overnight uneventful. Patient denies any chest pain, shortness breath, nausea/vomiting or severe headaches. Imaging, nursing note, chart, labs and old chart reviewed. Discussed with patient. Patient said he wanted to "take rat poison to end my life." He said this twice but denies SI. He is hyper evangelical, speaking on tangents with auditory hallucinations. Hospitalist Physical - Physical exam Narrative exam: GEN: cachetic, NAD, Awake, Alert, Orientated HEENT: NCAT, EOMI, PERRL, OP Clear NECK: supple, no adenopathy, no thyromegaly, no JVD CVS/HEART: RRR, normal S1S2, pulses present bilaterally CHEST/LUNGS: Diminished bs bilateral, Symmetrical chest expansion, good air entry bilaterally GI/Abdomen: soft, NTND, good bowel sounds, no guarding or rebound /Bladder: no suprapubic tenderness, no CVA or paraspinal tenderness EXT/Skin: no c/c/e, no obvious rash MSK: FROM x 4, walking/gait normal Neuro: CN 2-12 grossly intact, no new focal deficits Psych: hyper evangelical, speaking on tangents with auditory hallucinations, not easily directed, poor insight and judgment - Constitutional Vitals: Temp Pulse Resp BP Pulse Ox 98.0 F 98 H 17 119/88 94 05/28/18 23:15 05/28/18 23:15 05/28/18 23:15 05/28/18 23:15 05/28/18 23:15 General appearance: Present: no acute distress, well-nourished Results - Labs CBC & Chem 7: 05/25/18 05:45 05/25/18 05:45 Labs: Laboratory Last Values WBC 4.7 K/mm3 (4.5-11.0) 05/25/18 05:45 RBC 4.34 M/mm3 (3.65-5.03) 05/25/18 05:45 Hgb 11.8 gm/dl (11.8-15.2) 05/25/18 05:45 Hct 36.0 % (35.5-45.6) 05/25/18 05:45 MCV 83 fl (84-94) L 05/25/18 05:45 MCH 27 pg (28-32) L 05/25/18 05:45 MCHC 33 % (32-34) 05/25/18 05:45 RDW 17.1 % (13.2-15.2) H 05/25/18 05:45 Plt Count 324 K/mm3 (140-440) 05/25/18 05:45 [place] % (Auto) [employer] Helper 05/20/18 11:54 Eos % (Auto) [employer] Worker Helper 05/20/18 11:54 Add Manual Diff Complete 05/25/18 05:45 Total Counted 100 05/25/18 05:45 Seg Neutrophils % [employer]er Helper 05/20/18 11:54 Seg Neuts % (Manual) 88.0 % (40.0-70.0) H 05/25/18 05:45 Band Neutrophils % 1.0 % 05/25/18 05:45 Lymphocytes % (Manual) 4.0 % (13.4-35.0) L 05/25/18 05:45 Reactive Lymphs % (Man) 0 % 05/25/18 05:45 Monocytes % (Manual) 7.0 % (0.0-7.3) 05/25/18 05:45 Eosinophils % (Manual) 0 % (0.0-4.3) 05/25/18 05:45 Basophils % (Manual) 0 % (0.0-1.8) 05/25/18 05:45 Metamyelocytes % 0 % 05/25/18 05:45 Myelocytes % 0 % 05/25/18 05:45 Promyelocytes % 0 % 05/25/18 05:45 Blast Cells % 0 % 05/25/18 05:45 Nucleated RBC % Not Reportable 05/25/18 05:45 Seg Neutrophils # [employer] Worker Helper 05/20/18 11:54 Seg Neutrophils # Man 4.1 K/mm3 (1.8-7.7) 05/25/18 05:45 Band Neutrophils # 0.0 K/mm3 05/25/18 05:45 Abs Lymphs (Manual) 340 cells/uL (850-3900) L 05/21/18 14:46 Lymphocytes # (Manual) 0.2 K/mm3 (1.2-5.4) L 05/25/18 05:45 Abs React Lymphs (Man) 0.0 K/mm3 05/25/18 05:45 Monocytes # (Manual) 0.3 K/mm3 (0.0-0.8) 05/25/18 05:45 Eosinophils # (Manual) 0.0 K/mm3 (0.0-0.4) 05/25/18 05:45 Basophils # (Manual) 0.0 K/mm3 (0.0-0.1) 05/25/18 05:45 Metamyelocytes # 0.0 K/mm3 05/25/18 05:45 Myelocytes # 0.0 K/mm3 05/25/18 05:45 Promyelocytes # 0.0 K/mm3 05/25/18 05:45 Blast Cells # 0.0 K/mm3 05/25/18 05:45 WBC Morphology Not Reportable 05/25/18 05:45 Hypersegmented Neuts Not Reportable 05/25/18 05:45 Hyposegmented Neuts Not Reportable 05/25/18 05:45 Hypogranular Neuts Not Reportable 05/25/18 05:45 Smudge Cells Not Reportable 05/25/18 05:45 Toxic Granulation Not Reportable 05/25/18 05:45 Toxic Vacuolation Not Reportable 05/25/18 05:45 Dohle Bodies Not Reportable 05/25/18 05:45 Pelger-Huet Anomaly Not Reportable 05/25/18 05:45 Arabella Rods Not Reportable 05/25/18 05:45 Platelet Estimate Consistent w auto 05/25/18 05:45 Clumped Platelets Not Reportable 05/25/18 05:45 Plt Clumps, EDTA Not Reportable 05/25/18 05:45 Large Platelets Not Reportable 05/25/18 05:45 Giant Platelets Not Reportable 05/25/18 05:45 Platelet Satelliting Not Reportable 05/25/18 05:45 Plt Morphology Comment Not Reportable 05/25/18 05:45 RBC Morphology Not Reportable 05/25/18 05:45 Dimorphic RBCs Not Reportable 05/25/18 05:45 Polychromasia Not Reportable 05/25/18 05:45 Hypochromasia Not Reportable 05/25/18 05:45 Poikilocytosis Not Reportable 05/25/18 05:45 Anisocytosis 1+ 05/25/18 05:45 Microcytosis Not Reportable 05/25/18 05:45 Macrocytosis Not Reportable 05/25/18 05:45 Spherocytes Not Reportable 05/25/18 05:45 Pappenheimer Bodies Not Reportable 05/25/18 05:45 Sickle Cells Not Reportable 05/25/18 05:45 Target Cells Not Reportable 05/25/18 05:45 Tear Drop Cells Not Reportable 05/25/18 05:45 Ovalocytes Not Reportable 05/25/18 05:45 Helmet Cells Not Reportable 05/25/18 05:45 [place] Bodies Not Reportable 05/25/18 05:45 Milo Rings Not Reportable 05/25/18 05:45 Obed Cells Not Reportable 05/25/18 05:45 Bite Cells Not Reportable 05/25/18 05:45 Crenated Cell Not Reportable 05/25/18 05:45 Elliptocytes Not Reportable 05/25/18 05:45 Acanthocytes (Spur) Not Reportable 05/25/18 05:45 Rouleaux Not Reportable 05/25/18 05:45 Hemoglobin C Crystals Not Reportable 05/25/18 05:45 Schistocytes Not Reportable 05/25/18 05:45 Malaria parasites Not Reportable 05/25/18 05:45 Yuriy Bodies Not Reportable 05/25/18 05:45 Hem Pathologist Commnt No 05/25/18 05:45 APTT 29.4 Sec. (24.2-36.6) 05/20/18 13:18 Sodium 138 mmol/L (137-145) 05/25/18 05:45 Potassium 4.7 mmol/L (3.6-5.0) 05/25/18 05:45 Chloride 97.8 mmol/L (98-107) L 05/25/18 05:45 Carbon Dioxide 26 mmol/L (22-30) 05/25/18 05:45 Anion Gap 19 mmol/L 05/25/18 05:45 BUN 16 mg/dL (9-20) 05/25/18 05:45 Creatinine 0.7 mg/dL (0.8-1.5) L 05/25/18 05:45 Estimated GFR > 60 ml/min 05/25/18 05:45 BUN/Creatinine Ratio 23 % 05/25/18 05:45 Glucose 117 mg/dL (75-100) H 05/25/18 05:45 Hemoglobin A1c 5.8 % (4-6) 05/20/18 18:56 Lactic Acid 1.10 mmol/L (0.7-2.0) 05/20/18 16:00 Calcium 9.4 mg/dL (8.4-10.2) 05/25/18 05:45 Magnesium 2.40 mg/dL (1.7-2.3) H 05/20/18 11:54 Total Bilirubin 0.20 mg/dL (0.1-1.2) 05/21/18 05:32 AST 28 units/L (5-40) 05/21/18 05:32 ALT 28 units/L (7-56) 05/21/18 05:32 Alkaline Phosphatase 179 units/L (35-129) H 05/21/18 05:32 Lactate Dehydrogenase 549 units/L (91-180) H 05/20/18 11:25 Total Protein 6.0 g/dL (6.3-8.2) L D 05/21/18 05:32 Albumin 2.9 g/dL (3.9-5) L 05/21/18 05:32 Albumin/Globulin Ratio 0.9 % 05/21/18 05:32 Urine Color Yellow (Yellow) 05/20/18 Unknown Urine Turbidity Clear (Clear) 05/20/18 Unknown Urine pH 6.0 (5.0-7.0) 05/20/18 Unknown Ur Specific [place] 1.027 (1.003-1.030) 05/20/18 Unknown Urine Protein 30 mg/dl mg/dL (Negative) 05/20/18 Unknown Urine Glucose (UA) Neg mg/dL (Negative) 05/20/18 Unknown Urine Ketones Neg mg/dL (Negative) 05/20/18 Unknown Urine Blood Neg (Negative) 05/20/18 Unknown Urine Nitrite Neg (Negative) 05/20/18 Unknown Urine Bilirubin Neg (Negative) 05/20/18 Unknown Urine Urobilinogen < 2.0 mg/dL (<2.0) 05/20/18 Unknown Ur Leukocyte Esterase Neg (Negative) 05/20/18 Unknown Urine WBC (Auto) 1.0 /HPF (0.0-6.0) 05/20/18 Unknown Urine RBC (Auto) 3.0 /HPF (0.0-6.0) 05/20/18 Unknown Urine Mucus Few /HPF 05/20/18 Unknown Lymph Enumerat CD4/CD8 0.04 (0.86-5.00) L 05/21/18 14:46 % CD3 Cells 30 % (57-85) L 05/21/18 14:46 Absolute CD3 Count 102 cells/uL (840-3060) L 05/21/18 14:46 % CD4 Cells 1 % (30-61) L 05/21/18 14:46 Absolute CD4 Count 4 cells/uL (490-1740) L 05/21/18 14:46 % CD8 Cells 25 % (12-42) 05/21/18 14:46 Absolute CD8 Count 88 cells/uL (180-1170) L 05/21/18 14:46 % CD19 Cells 11 % (6-29) 05/21/18 14:46 Absolute CD19 Count 38 cells/uL (110-660) L 05/21/18 14:46 Hepatitis A IgM Ab Non-reactive (NonReactive) 05/21/18 07:16 Hep Bs Antigen Non-reactive (Negative) 05/21/18 07:16 Hep B Core IgM Ab Non-reactive (NonReactive) 05/21/18 07:16 Hepatitis C Antibody Non-reactive (NonReactive) 05/21/18 07:16 HIV-1 RNA PCR copies/ml [id number] Copies/mL H 05/21/18 14:46 HIV-1 RNA (PCR) log 5.50 Log cps/mL H 05/21/18 14:46 Nutrition/Malnutrition Assess - Dietary Evaluation Nutrition/Malnutrition Findings: Nutrition Notes Start: 05/21/18 15:06 Freq: Status: Active Protocol: Document 05/30/18 10:07 TW (Rec: 05/30/18 10:44 TW [email or web address]) Co-Sign 05/30/18 10:07 OL Nutrition Notes Initial or Follow up Reassessment Other Pertinent Diagnosis HIV, Pneu, Oral Candidiasis, Seizure disorder,Bipolar disorder,Cocaine abuse Current Diet Mech soft w/Ensure BID Labs/Tests Cr: 0.7 Pertinent Medications Reviewed Height 5 ft 6 in Weight 62.5 kg [place] Body Weight (kg) 64.54 BMI 22.2 Subjective/Other Information Pt stated that he is eating well and is consuming close to all of his Ensure Enlive supplements TID. Percent of energy/protein needs met: 100%/100% Burn Absent Trauma Absent #1 Nutrition Diagnosis Malnutrition As Evidenced by Signs and Symptoms Pt is meeting 100% of his energy and protein needs Diagnosis Progress(for reassessment Improved documentation) Is patient on ventilator? No Is Patient Ambulatory and/or Out of Bed Yes REE-([place]-St. Jeor-ambulatory/OOB) [ 1875.575 [id number]] Calculation Used for Recommendations [place]-St Jeor Additional Notes Protein Needs: 75-94g (1.2-1. 5g/kg) Fluid Needs: 1 ml/kcal Nutrition Intervention Change Diet Order: Continue current Add Supplement/Snack (indicate name/kcal Ensure Enlive TID /protein ) Provides kCal: 1,050 Provides Protein (gm) 60 Goal #1 Continue to meet at least 75% of calorie and protein needs via PO and ONS intakes Goal #2 Wt gain/maintenance Anticipated Discharge Needs: [facility] soft diet Follow-Up By: 06/06/18 Additional Comments F/U for stable intakes
[2018-05-31] MEDS: BACTRIM DS PO SCH ×2 (06:00→15:39)
[2018-05-31] MEDS ORDERED: LEVETIRACETAM PO SCH (10:00)
--- NOTE | 2018-05-31 10:56 | Progress Note ---
Assessment and Plan Cultures: Blood culture 05/20/2018 no growth today. Assessment: 48 y/o male with history of cocaine abuse, Gonorrhea and HIV diagnosed in 2018,; admitted on 05/20/2018 due to 3-week history of cough with yellowish sputum, SOB, AVILA, nasal congestion and difficulty swallowin) Sepsis: Resolved, Present on admission, manifested by tachycardia, hypotension, neutropenia. Etiology most likely AIDS +/- PJP pneumonia. 2) Presumed PJP pneumonia versus CAP with mild hypoxemia: O2 sat 93%, LDH 549, CXR showed early left sided infiltrate. Blood culture 05/20/2018 no growth today. 3) Severe oral candidiasis 4) Weight loss/AIDS cachexia 5) Neutropenia 6) HIV/AIDS: unknown CD4/VL, Diagnosed in 2018 non treated non compliance, patient [facility] but never went back because he did not like the way he was treated VL- 313,000/CD4 4 on 05/21/18 Recommendations: - f/u Cryptococcal serum antigen and CMV DNA -f/u HIV geonotype -- continue bactrim PO - continue fluconazole 400mg po q day -continue prednisone - Anticipate discharge on bactrim DS 2 tab PO TID x 21 days, fluconazole 400 mg PO qday for 21 days. Prednisone taper as follows 40mg po BID for three days, then 40 mg PO QD for five days, then 20mg PO for 11 days. - ID clinic f/u 06/06/18 to review labs and start ART. -remains stable for discharge from ID standpoint -awaiting discharge to inpatient Psych facility Dr. Harris will be cotton farmworker this weekend, , please call for questions. Radha Leonard NP [facility] M: [phone] O:[phone] Subjective Date of service: 05/31/18 Interval history: Patient seen and examined. Patient speaking more clearly today. States that he is ready to go home and will follow up with our office. Discussed the importance of following up and adhering to medication regimen, verbalized understanding. Objective - Exam Narrative Exam: Narrative exam: General appearance: Alert in NAD, Conversant. cachetic Eyes: anicteric sclerae, moist conjunctivae; no lid-lag; PERRLA HENT: Atraumatic; oropharynx + thrush- improved. Neck: Trachea midline; supple, no thyromegaly or lymphadenopathy Lungs: Clear to auscultation CV: RRR, no murmurs Abdomen: Soft, active bowel sounds Extremities: No peripheral edema or extremity lymphadenopathy Skin: Normal temperature, turgor and texture; no rash, ulcers or subcutaneous nodules Psych: Calm, Affect: good - Constitutional Vitals: Vital Signs Temp Pulse Resp BP Pulse Ox 97.5 F L 107 H 18 112/76 97 05/30/18 12:46 05/30/18 17:20 05/30/18 22:00 05/30/18 17:20 05/30/18 17:20 Temperature -Last 24 Hours Temperature 97.5 F - Labs CBC & Chem 7: 05/25/18 05:45 05/25/18 05:45
[2018-05-31] MEDS: DIFLUCAN PO SCH (11:31)
[2018-05-31] MEDS: DELTASONE PO SCH (11:31)
[2018-05-31] MEDS: LOVENOX SUB-Q SCH (11:31)
--- NOTE | 2018-05-31 15:58 | Progress Note ---
Subjective - Reason for Consult Consult date: 05/31/18 Reason for consult: Psychiatry Follow-up - Chief Complaint Chief complaint: "I said the wrong thing" 48 year old male that presents to the hospital with chief complaint of cough, congestion and difficulty swallowing. Psychiatry was consulted after patient expressed the idea of taking rat poison to end his life. Today the patient is calm and cooperative during the assessment. He stated that he was upset when he gestured about drinking "rat poison," He stated that he must chose his words better. He is adamant that he wasn't suicidal. He denies any previous attempts of suicide when asked. He stated that he would like a referral to outpatient psy services. He denies SI/HI's and AVH's. He denies any side effects of his medication. Mental Status Exam - Vital signs Last Vital Signs Temp 97.5 F L 05/30/18 12:46 Pulse 107 H 05/30/18 17:20 Resp 18 05/30/18 22:00 BP 112/76 05/30/18 17:20 Pulse Ox 97 05/30/18 17:20 - Exam Narrative exam: MSE: Appearance: calm, cooperative Behavior: regular eye contact Speech: regular rate and tone Mood: "okay" Affect: congruent to mood Thought Process: more organized Thought Content: denies SI/HI's and AVH's Motor Activity: sitting up in the bed Cognition: A/O x3 Insight: appropriate Judgment: appropriate Assessment and Plan Impression: Unspecified Mood DO with psy features. Today the patient is calm and cooperative during the assessment. The patient's psychosis has resolved. The patient is no threat to self. Recommendation/Plan: Rescind 1013. continue Zyprexa 5 mg PO HS. Discussed possible metabolic side effects of Zyprexa with the patient. . Dispo: The patient can follow up with [facility] for outpatient psy services. Will staff with Dr Winter.
[2018-05-31 17:59] VITALS: BP 114/78
== END 2018-05-31 17:45 | disposition home or self-care (01) | DRG 974 ==
LOC: ED 10:18 → 3A 18:30
PROVIDERS: ADMIT Internal Medicine; ATTEND Internal Medicine
DX: B20 Human immunodeficiency virus [HIV] disease (principal); E43 Unspecified severe protein-calorie malnutrition; B37.0 Candidal stomatitis; A41.9 Sepsis, unspecified organism; B59 Pneumocystosis; J96.01 Acute respiratory failure with hypoxia; E87.1 Hypo-osmolality and hyponatremia; R64 Cachexia; G40.909 Epilepsy, unspecified, not intractable, without status epilepticus; D70.9 Neutropenia, unspecified; F31.9 Bipolar disorder, unspecified; F14.10 Cocaine abuse, uncomplicated; Z68.21 Body mass index [BMI] 21.0-21.9, adult
CPT/HCPCS: 36415; 71046; 80048; 80053; 80074; 81001; 82024; 82140; 83036; 83615; 83735; 85007; 85025; 85730; 87040; 87536; G0378; J0456; J0696; J1450; J1650; J7030; J7050; J7060; J7512